=== PATIENT | male | born 1945 | race Caucasian/White ===

== ENCOUNTER 2016-05-15 18:17 | Emergency (ER) | payer MEDICARE, BC, OTHER ==
[2016-05-15] MEDS ORDERED: CARV6.25 PO (18:43)
[2016-05-15] MEDS ORDERED: TRAN2TAB4 (18:43)
[2016-05-15] MEDS ORDERED: ALPR0.25 (18:43)
[2016-05-15] MEDS ORDERED: TAMSULOSIN (18:43)
[2016-05-15] MEDS ORDERED: MULTIVITAMIN -ADULT INJECTION 10 ML, THIAMINE INJection 100 MG, FOLIC ACID 1 MG in NS 1... IV ONE (19:45)
[2016-05-15 19:49] LABS: BASO % 0.4 % (0.0-1.0); EOS # 0.1 K/mm3 (0.0-0.50); EOS % 2.2 % (0.0-3.0); LARGE UNSTAINED CELL # 0.1 K/mm3 (0.0-0.4); LARGE UNSTAINED CELL % 2.5 % (0.0-4.0); LYMPH # 1.8 K/mm3 (1.5-4.5); LYMPH % 36.1 % (24.0-44.0); MEAN CORPUSCULAR HEMOGLOBIN 30.5 pg (27.0-33.0); MEAN CORPUSCULAR HGB CONC 33.4 g/dl (32.0-36.5); MEAN CORPUSCULAR VOLUME 91.3 fl (80.0-96.0); MONO # 0.3 K/mm3 (0.0-0.8); MONO % 5.8 % (0.0-5.0); NEUTROPHILS # 2.5 K/mm3 (1.8-7.7); NEUTROPHILS % 53.1 % (36.0-66.0); PLATELET COUNT, AUTOMATED 197 k/mm3 (150-450); RED CELL DISTRIBUTION WIDTH 12.8 % (11.5-14.5); WHITE BLOOD COUNT 4.7 K/mm3 (4.0-10.0)
[2016-05-15 20:24] LABS: ALBUMIN 3.5 GM/DL (3.2-5.2); ALBUMIN/GLOBULIN RATIO 1.21 (1.00-1.93); ALKALINE PHOSPHATASE 42 U/L (45-117); ALT/SGPT 22 U/L (12-78); ANION GAP 10 MEQ/L (8-16); AST/SGOT 25 U/L (15-37); BILIRUBIN,DIRECT < 0.1 MG/DL (0.0-0.2); BILIRUBIN,TOTAL 0.3 MG/DL (0.2-1.0); BLOOD UREA NITROGEN 9 MG/DL (7-18); CALCIUM LEVEL 8.6 MG/DL (8.8-10.2); CARBON DIOXIDE LEVEL 26 MEQ/L (21-32); CHLORIDE LEVEL 108 MEQ/L (98-107); CREATININE FOR GFR 0.79 MG/DL (0.70-1.30); GLOMERULAR FILTRATION RATE > 60.0 (>42); GLUCOSE, FASTING 97 MG/DL (83-110); POTASSIUM SERUM 3.7 MEQ/L (3.5-5.1); SODIUM LEVEL 144 MEQ/L (136-145); TOTAL PROTEIN 6.4 GM/DL (6.4-8.2)
[2016-05-15 22:22] VITALS: BP 116/60
== END 2016-05-15 22:35 | disposition home or self-care (01) ==
LOC: EDBD 18:17 → M ED 18:45
DX: F10.129 Alcohol abuse with intoxication, unspecified (principal)
CPT/HCPCS: 80048; 80076; 82140; 85025; 99282; G0480; J3411

== ENCOUNTER 2016-06-18 14:00 | Outpatient (RCR) | payer MEDICARE, OTHER ==
[~2016-06-18 14:00] MED LIST: ALPR0.25; CARV6.25 PO; TAMSULOSIN; TRAN2TAB4
== END 2016-06-24 ==
LOC: M OUTALCOH 14:00
PROVIDERS: ATTEND Psychiatry & Neurology Psychiatry
DX: F10.20 Alcohol dependence, uncomplicated (principal)
CPT/HCPCS: 90791; H0050

== ENCOUNTER 2016-07-19 11:00 | Outpatient (RCR) | payer MEDICARE, OTHER | END 2016-07-25 | LOC: M OUTALCOH 11:00 | PROVIDERS: ATTEND Psychiatry & Neurology Psychiatry | DX: F10.20 Alcohol dependence, uncomplicated (principal) ==

== ENCOUNTER 2016-07-27 10:38 | Inpatient (IN) | payer MEDICARE, OTHER ==
[~2016-07-27] VITALS: Ht 180.3 cm; Wt 53.3 kg
[2016-07-27] MEDS ORDERED: SERT1TAB16 (10:58)
[2016-07-27] MEDS ORDERED: ARIC10TA (10:58)
[2016-07-27] MEDS ORDERED: VITA10002 (10:58)
[2016-07-27 11:54] LABS: BASO % 0.1 % (0.0-1.0); EOS # 0.1 K/mm3 (0.0-0.50); EOS % 1.2 % (0.0-3.0); LARGE UNSTAINED CELL # 0.1 K/mm3 (0.0-0.4); LARGE UNSTAINED CELL % 1.4 % (0.0-4.0); LYMPH # 0.9 K/mm3 (1.5-4.5); LYMPH % 9.7 % (24.0-44.0); MEAN CORPUSCULAR HEMOGLOBIN 31.3 pg (27.0-33.0); MEAN CORPUSCULAR HGB CONC 34.2 g/dl (32.0-36.5); MEAN CORPUSCULAR VOLUME 91.7 fl (80.0-96.0); MONO # 0.6 K/mm3 (0.0-0.8); MONO % 6.3 % (0.0-5.0); NEUTROPHILS # 7.7 K/mm3 (1.8-7.7); NEUTROPHILS % 81.4 % (36.0-66.0); PLATELET COUNT, AUTOMATED 161 k/mm3 (150-450); RED CELL DISTRIBUTION WIDTH 12.2 % (11.5-14.5); WHITE BLOOD COUNT 9.5 K/mm3 (4.0-10.0)
[2016-07-27 12:14] LABS: ALBUMIN 2.4 GM/DL (3.2-5.2); ALBUMIN/GLOBULIN RATIO 1.14 (1.00-1.93); ALKALINE PHOSPHATASE 33 U/L (45-117); ALT/SGPT 16 U/L (12-78); ANION GAP 6 MEQ/L (8-16); AST/SGOT 22 U/L (15-37); BILIRUBIN,DIRECT 0.1 MG/DL (0.0-0.2); BILIRUBIN,TOTAL 0.4 MG/DL (0.2-1.0); BLOOD UREA NITROGEN 10 MG/DL (7-18); CALCIUM LEVEL 6.6 MG/DL (8.8-10.2); CARBON DIOXIDE LEVEL 25 MEQ/L (21-32); CHLORIDE LEVEL 116 MEQ/L (98-107); CREATININE FOR GFR 0.53 MG/DL (0.70-1.30); GLOMERULAR FILTRATION RATE > 60.0 (>42); GLUCOSE, FASTING 84 MG/DL (83-110); POTASSIUM SERUM 3.3 MEQ/L (3.5-5.1); SODIUM LEVEL 147 MEQ/L (136-145); TOTAL PROTEIN 4.5 GM/DL (6.4-8.2)
--- NOTE | 2016-07-27 12:40 | REP ---
CT HEAD WITHOUT CONTRAST: HISTORY: Altered mental status. COMPARISON: 05/31/2016 Areas of decreased attenuation are present in the periventricular and subcortical white matter. This represents small vessel ischemic disease. There is no intraparenchymal hemorrhage or mass. A chronic subdural hematoma 2.3 cm in with with acute rebleeding is present over the left cerebral hemisphere. A subacute, subdural hematoma 1.5 cm in width is present over the right cerebral hemisphere. There is mass effect with effacement of the overlying cortical sulci and partial effacement of the bodies of the lateral and third ventricles with minimal midline shift to the right. There is no fracture. The visualized sinuses are clear. IMPRESSION: 1. Small vessel ischemic disease. 2. There is a 2.3 cm chronic subdural hematoma with acute rebleeding over the left cerebral hemisphere. There is minimal midline shift to the left. 3. There is a 1.5 cm subacute subdural hematoma over the right cerebral hemisphere. Results were discussed with Dr. Esposito at 12:04 PM this date. Signed by Jake Nunes MD 07/27/2016 12:47 P
--- NOTE | 2016-07-27 12:48 | REP ---
CHEST: AP supine film of the chest is performed and compared to a prior study of 12/11/2011. There is no acute infiltrate. There is poor ventilation. Cardiomediastinal silhouette appears magnified. IMPRESSION: No acute infiltrate. Signed by Bharathi Cage MD 07/27/2016 01:42 P
--- NOTE | 2016-07-27 12:55 | REP ---
CT SPINE WITHOUT CONTRAST: HISTORY: Altered mental status. There is no acute fracture or subluxation. Disc bulges are present at the C2-3 and C3-4 levels. Disc bugles with associated osteophyte formation are present at the C4-5 through C6-7 levels. There is minimal narrowing of the spinal canal. Uncinate process and/or facet hypertrophy are present at the C3-4 through C7-T1 levels. These findings produce minimal to moderate narrowing of the neural foramina. Anterior osteophytes are present at the C1-2 through C6-7 levels. 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 IMPRESSION: 1. There is no acute fracture or subluxation. 2. 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 Signed by Jake Nunes MD 07/27/2016 01:19 P
[2016-07-27 13:31] LABS: MAGNESIUM LEVEL 1.8 MG/DL (1.8-2.4)
[2016-07-27] MEDS ORDERED: CARV6.25 PO (13:37)
[2016-07-27] MEDS ORDERED: TRAN2TAB4 PO (13:37)
[2016-07-27] MEDS ORDERED: SERT1TAB16 PO (13:37)
[2016-07-27] MEDS ORDERED: FLOM5CAP PO (13:37)
[2016-07-27] MEDS ORDERED: VITA10002 PO (13:37)
[2016-07-27] MEDS ORDERED: ALPR0.25 PO (13:37)
[2016-07-27] MEDS ORDERED: DONETAB6 PO (13:37)
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
[2016-07-27] MEDS ORDERED: ALPRAZolam 0.25 MG TAB PO PRN (14:30)
[2016-07-27] MEDS ORDERED: POTASSIUM CHLORIDE 10 MEQ SR TABLET PO ONE (16:00)
--- NOTE | 2016-07-27 16:34 | REP ---
CT HEAD WITHOUT CONTRAST: HISTORY: Fall. COMPARISON: 11:48 a.m. 07/27/2016 Areas of decreased attenuation are present in the periventricular and subcortical white matter. This represents small vessel ischemic disease. There is no intraparenchymal hemorrhage or mass. A chronic subdural hematoma 2.3 mm in width with acute rebleeding is present over the left cerebral hemisphere. A subacute subdural hematoma 1.5 cm in width is present over the right cerebral hemisphere. There is mass effect with effacement of the overlying cortical sulci and partial effacement of the bodies of the lateral and third ventricles with minimal midline shift to the right. The left subdural hematoma is very slightly increased in size. There is no fracture. The visualized sinuses are clear. IMPRESSION: 1. Small vessel ischemic disease. 2. There is a 2.3 cm chronic subdural hematoma with acute rebleeding over the left cerebral hemisphere. This is slightly increased in size compared to the previous study. There is minimal midline shift to the left. 3. There is a 1.5 cm subacute subdural hematoma over the right cerebral hemisphere, unchanged compared to the previous study. Signed by Jake Nunes MD 07/27/2016 04:37 P
[2016-07-27] MEDS ORDERED: ACETAMINOPHEN 325 MG TAB PO PRN (17:30)
[2016-07-27 17:59] LABS: INR 0.96
[2016-07-27 20:00] VITALS: BP 143/69
[2016-07-27] MEDS: KCL 20MEQ in NS 1000ML 1,000 ML IV SCH (20:45)
[2016-07-27] MEDS ORDERED: CARVedilol 6.25 MG TAB PO SCH (21:00)
--- NOTE | 2016-07-27 23:59 | HPEPDOC ---
General Date of Admission 07/27/16 Attending Physician: MARY ELAM MD Chief Complaint The patient is a 71-year-old male admitted with a reason for visit of fall/head injury. History of Present Illness Mr Brooks is a 71 year old male nonsmoker who presents to the ED after a fall with head injury at home. He states he does not know why he is here. He does not remember how he got to the hospital. He states "the only problem is all of a sudden I don't know what to think." He denies any pain, headache, weakness, numbness/tingling, dizziness, seizures, bladder or bowel continence, difficulty walking, chest pain, shortness of breath, abdominal pain, or N/V. He states he is feeling fine and is ready to go home. He states he is independent at home and lives with his . He owns a vehicle and drives. Home Medications Scheduled (Sertraline HCl) 25 Mg Tab, 25 MG PO DAILY, (Reported) Carvedilol (Carvedilol) 6.25 Mg Tab, 6.25 MG PO BID, (Reported) Cyanocobalamin (Vitamin B-12) 1,000 Mcg Tab, 1,000 MCG PO DAILY, (Reported) Donepezil Hcl (Donepezil HCl) 10 Mg Tab, 10 MG PO DAILY, (Reported) Tamsulosin Hydrochloride (Flomax) 0.4 Mg Cap, 0.4 MG PO DAILY, (Reported) Trandolapril (Trandolapril) 2 Mg Tab, 2 MG PO DAILY, (Reported) Scheduled PRN Alprazolam (Alprazolam) 0.25 Mg Tab, 0.25 MG PO TID PRN for ANXIETY, (Reported) Allergies Coded Allergies: Codeine (Verified Adverse Reaction, Mild, HALLUCINATIONS, 07/27/16) Past Medical History Medical History HTN BPH Depression/anxiety Dementia Social History * Smoker: non-smoker Alcohol: other ("Some." Becomes irritated and tells me I am asking too personal of questions and refuses to answer. 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 SKIN: Skin tears over dorsal aspect of right hand covered in dried blood. No active bleeding. IV present in antecubital space of left arm. HEAD: NC, with signs of trauma mainly located posterior aspect. [place] are present over fresh laceration over midline inferior aspect parietal region. There is dried blood along the left side of face by his ear. No signs of ear trauma. EYES: PERRL. EOM are coarse. No discharge or tearing. No signs of trauma to the globe. NECK: supple with FROM flexion and extension, lateral bending, and rotation. Symmetrical. No lymphadenopathy. HEART: RRR, heart sounds are distant. No appreciated murmurs. LUNGS: clear to auscultation. No wheezes, rhonchi, or rales. ABD: active bowel sounds. No pain with palpation. NEURO: Rate & flow of speech is ordinary. No slurring of words. CN II-12: appear to be intact, with exception of coarse EOM. Balance not assessed. Motor/ muscle strength: 5/5 in upper and lower extremities and equal bilaterally. DTRs: slightly increased throughout, symmetric bilaterally. Sensation: intact to touch and vibration sensations in upper and lower extremities. Sharp sensation is intact in upper extremities, but decreased in lower extremities peripherally in stocking distribution. There is no ankle clonus bilaterally. Babinski is down going bilaterally. Robles's sign is negative. Hair/coordination: Appears to be impaired; he begins to perform the task but then refuses. PSYCH:mood is irritable. GAIT: not assessed. He is on bed rest. MENTAL STATUS: Alert, orientated to person, place, and year. Not orientated to day, date, or month. He has difficulty following commands. He is able to correctly tell me location of [place] [facility]. He tells me he has 2 children and is able to state their names ("Rajendra and Soraya", unsure if this is accurate.) Vital Signs Vital Signs Date Time Temp Pulse Resp B/P (MAP) Pulse Ox O2 Delivery O2 Flow Rate FiO2 07/27/16 16:38 73 98 07/27/16 16:35 142/69 (93) 07/27/16 10:48 98.1 16 Room Air Laboratory Data Labs 24H Laboratory Tests 2 07/27/16 11:36: White Blood Count 9.5, Red Blood Count 4.39, Hemoglobin 13.8L, Hematocrit 40.2L , Mean Corpuscular Volume 91.7, Mean Corpuscular Hemoglobin 31.3, Mean Corpuscular Hemoglobin Concent 34.2, Red Cell Distribution Width 12.2, Platelet Count 161, Neutrophils (%) (Auto) 81.4H, Lymphocytes (%) (Auto) 9.7L, Monocytes (%) (Auto) 6.3H, Eosinophils (%) (Auto) 1.2, Basophils (%) (Auto) 0.1, Neutrophils # (Auto) 7.7, Lymphocytes # (Auto) 0.9L, Monocytes # (Auto) 0.6, Eosinophils # (Auto) 0.1, Basophils # (Auto) 0.0, Large Unclassified Cells % 1.4 , Large Unclassified Cells # 0.1, Anion Gap 6L, Glomerular Filtration Rate > 60.0, Lactic Acid Level 0.9, Calcium Level 6.6L, Magnesium Level 1.8, Aspartate Amino Transf (AST/SGOT) 22, Alanine Aminotransferase (ALT/SGPT) 16, Alkaline Phosphatase 33L, Total Bilirubin 0.4, Direct Bilirubin 0.1, Ammonia 20, Total Protein 4.5L, Albumin 2.4L, Albumin/Globulin Ratio 1.14, Thyroid Stimulating Hormone (TSH) 0.874, Ethyl Alcohol Level < 0.003 07/27/16 12:00: Bedside Glucose (Misc Panel) 116H 07/27/16 13:22: Urine Appearance CLEAR, Urine Color YELLOW, Urine pH 7.0, Urine Specific [place] 1.005, Urine Protein NEGATIVE, Urine Glucose (UA) NEGATIVE, Urine Ketones TRACEH, Urine Urobilinogen 0.2, Urine Bilirubin NEGATIVE, Urine Leukocyte Esterase 3+H, Urine Blood NEGATIVE, Urine Nitrite NEGATIVE, Urine WBC (Auto) 17H, Urine RBC (Auto) 4H, Urine Hyaline Casts (Auto) 0, Urine Bacteria ( Auto) 1+H, Urine Squamous Epithelial Cells 0, Urine Sperm (Auto) , Osmolality 295 CBC/BMP Laboratory Tests 07/27/16 11:36 Red Blood Count 4.39, Mean Corpuscular Volume 91.7, Mean Corpuscular Hemoglobin 31.3, Mean Corpuscular Hemoglobin Concent 34.2, Red Cell Distribution Width 12.2 , Neutrophils (%) (Auto) 81.4 H, Lymphocytes (%) (Auto) 9.7 L, Monocytes (%) ( Auto) 6.3 H, Eosinophils (%) (Auto) 1.2, Basophils (%) (Auto) 0.1, Neutrophils # (Auto) 7.7, Lymphocytes # (Auto) 0.9 L, Monocytes # (Auto) 0.6, Eosinophils # (Auto) 0.1, Basophils # (Auto) 0.0 Problems (1) Subdural hematoma Status: Acute Plan / VTE VTE Prophylaxis Ordered?: Yes (TEDS/SCD) VTE Exclusion Pharmacological: Active Bleeding Plan Plan Admit to PCU. Recommend surgical intervention for subdural hematoma. Additional plans per Dr Elam. Diet: Make NPO Activity: YEIMY Garcia PA-C Jul 27, 2016 17:18 MARY ELAM MD Jul 28, 2016 09:12
[2016-07-28] VITALS (13 sets, daily range): BP systolic 128–153; BP diastolic 60–83
[2016-07-28 04:19] LABS: MEAN CORPUSCULAR HEMOGLOBIN 31.8 pg (27.0-33.0); MEAN CORPUSCULAR HGB CONC 34.5 g/dl (32.0-36.5); RED CELL DISTRIBUTION WIDTH 12.1 % (11.5-14.5); WHITE BLOOD COUNT 6.7 K/mm3 (4.0-10.0)
[2016-07-28 04:35] LABS: ALBUMIN 2.9 GM/DL (3.2-5.2); ALBUMIN/GLOBULIN RATIO 0.94 (1.00-1.93); ALKALINE PHOSPHATASE 43 U/L (45-117); ALT/SGPT 20 U/L (12-78); ANION GAP 7 MEQ/L (8-16); AST/SGOT 29 U/L (15-37); BLOOD UREA NITROGEN 8 MG/DL (7-18); CALCIUM LEVEL 7.8 MG/DL (8.8-10.2); CARBON DIOXIDE LEVEL 24 MEQ/L (21-32); CHLORIDE LEVEL 111 MEQ/L (98-107); CREATININE FOR GFR 0.57 MG/DL (0.70-1.30); GLOMERULAR FILTRATION RATE > 60.0 (>42); GLUCOSE, FASTING 86 MG/DL (83-110); SODIUM LEVEL 142 MEQ/L (136-145)
[2016-07-28] MEDS: KCL 20MEQ in NS 1000ML 1,000 ML IV SCH (05:53)
--- NOTE | 2016-07-28 07:25 | ECGEPIP ---
Stationary ECG Study [facility] - ED Test Date: 2016-07-27 Pat Name: JIGNA KIRKLAND Department: Room: - Gender: M De Alcholizer: jenny : 1945 Requested By: LEANA Martínez Order Number: [id number] Reading MD: Cheryl Varner Measurements Intervals [place] Rate: 57 P: 22 PA: 171 QRS: 41 QRSD: 97 T: 40 QT: 441 QTc: 431 Interpretive Statements SINUS BRADYCARDIA PROBABLE INFERIOR MYOCARDIAL INFARCTION, PROBABLY OLD NO PRIOR FOR COMPARISON Electronically Signed On 07-28-2016 7:25:43 EDT by Cheryl Varner
[2016-07-28] MEDS: TAMSULOSIN 0.4 MG CAP PO SCH (08:04)
[2016-07-28] MEDS: SERTRALINE HCL 25 MG TABLET PO SCH (08:04)
[2016-07-28] MEDS: CYANOCOBALAMIN 500 MCG TAB PO SCH (08:04)
[2016-07-28] MEDS ORDERED: BACITRACIN OINT 30GM As Ordered ONE (08:33)
[2016-07-28] MEDS ORDERED: LIDOCAINE 1% SDV INJ 30 ML VIAL As Ordered ONE (08:33)
[2016-07-28] MEDS ORDERED: TRANDOLAPRIL 1 MG TAB PO SCH (09:00)
[2016-07-28] MEDS ORDERED: ceFAZolin 1GM INJ (J0690) As Ordered ONE (09:46)
[2016-07-28] MEDS ORDERED: fentaNYL 250 MCG/5 ML INJECTION (J3010) As Ordered ONE (11:12)
[2016-07-28] MEDS ORDERED: dexameTHASONE 4 MG/ML 1ML VIAL (J1100) As Ordered ONE (11:12)
[2016-07-28] MEDS ORDERED: PROPOFOL 200 MG/20 ML VIAL As Ordered ONE ×2 (11:12→11:26)
[2016-07-28] MEDS ORDERED: MIDAZOLAM INJ 2 MG/2 ML VIAL (J2250) As Ordered ONE (11:12)
[2016-07-28] MEDS ORDERED: NEOSTIGMINE 1MG/ML 5 ML SYRINGE (J2710) As Ordered ONE (11:12)
[2016-07-28] MEDS ORDERED: ROCURONIUM BROMIDE 50 MG/5 ML VIAL As Ordered ONE (11:12)
[2016-07-28] MEDS ORDERED: LIDOCAINE 2% INJ 100 MG/5 ML SDV (FOR ANES.) As Ordered ONE (11:12)
[2016-07-28] MEDS ORDERED: GLYCOPYRROLATE INJ 0.2 MG/ML 2 ML VIAL As Ordered ONE (11:13)
[2016-07-28] MEDS ORDERED: METOCLOPRAMIDE INJ 10MG/2ML VIAL (J2765) IV PRN (12:15)
[2016-07-28] MEDS: KCL 20MEQ IN D5/0.45NS 1000ML 1,000 ML IV SCH ×2 (12:15→13:10)
[2016-07-28] MEDS ORDERED: PERCOCET 5MG/325MG TAB PO PRN (12:15)
[2016-07-28] MEDS ORDERED: ONDANSETRON 4MG/2ML VIAL (J2405) IV PRN (12:15)
[2016-07-28] MEDS ORDERED: LR 1,000 ML IV SCH (12:15)
[2016-07-28] MEDS ORDERED: MEPERIDINE INJ 25 MG/ML VIAL (J2175) IV PRN (12:15)
[2016-07-28] MEDS ORDERED: fentaNYL 100 MCG/2 ML INJECTION (J3010) IV PRN (12:15)
[2016-07-28] MEDS: KCL 20MEQ IN D5/NS 1000ML 1,000 ML IV SCH ×2 (13:30→22:15)
[2016-07-28] MEDS ORDERED: MORPHINE 2 MG/ML 1ML SYRINGE IV PRN (15:45)
--- NOTE | 2016-07-28 16:54 | ROOPDOC ---
[facility] Report Of Operation Report of Operation DATE OF SURGERY: 07/28/2016 SURGEON: Dr. Mary Elam STUDENT FINANCE ADVISOR: None PREOPERATIVE DIAGNOSIS: Bilateral chronic subdural hematomas (cSDH) POSTOPERATIVE DIAGNOSIS: Same PROCEDURE PERFORMED: 1. Margareth holes placement 2. Insertion of port for drainage of bilateral chronic SDH. ANESTHESIA: GETA. ESTIMATED BLOOD LOSS: Minimal. FINDINGS : Bilateral chronic subdural hematomas. DRAINS: GP drains x 2 COMPLICATIONS: None. DISPOSITION: Stable to the PACU. INDICATIONS FOR THE PROCEDURE HISTORY: Mr. Brooks is a 71 y/o M who presents to the hospital after fall and scalp laceration on the back of the head. Examination reveal s the signs, symptoms and radiographic evidence of chronic subdural hematoma decreasing mental status, weakness, tendency to fall). DIAGNOSTIC STUDY: Head CT scan showed bilateral fronto-parietal chronic subdural hematomas of different age and new small bleeds. SURGICAL RISKS: The patient most likely has underlying dementia and disoriented, unable to provide consent. His daughter was well apprised of all objectives, benefits, risks and potential complications of the procedure, including but not limited to : worsening of current status, the possible need for further procedures, the risk of infection, headaches, CSF leak, possible spinal nerve injury resulting in paralysis, infection, injury to major vessels causing hemorrhage, stroke, loss of language function, coma and even . No assurance was given whether symptoms would improve following the procedure. The surgery is technically difficult procedure and despite the significant discomfort for the patient and the best effort of the physician, the surgery may be unsuccessful or may need to be aborted. Informed consent was obtained and secured in the chart after the patient and family voiced understanding of these risks and decided to proceed with the operation. DESCRIPTION OF THE PROCEDURE The patient was transferred to the operating room. He was given preoperative prophylactic IV antibiotics. ANESTHESIA: The patient was sedated and intubated without difficulty by the anesthesia service. Eyes were taped shut after ointment was applied to prevent corneal abrasion. A Brina Hugger was placed over the upper body to maintain control of core body temperature. POSITIONING: The patient was supine on OR table with his head on horse shoe head esthetician. All pressure points were carefully padded. OPERATIVE TECHNIQUE: The patient was prepped and draped in the standard sterile fashion. Local anesthesic was infiltrated along the line of the planned skin incisions on both sides of head, which was opened sharply with a # 10 scalpel blade. Hemostasis was achieved utilizing monopolar and bipolar electrocautery. The scalp was reflected and held in place with self-retaining retractors. Utilizing the hand-held auto suspension and steering mechanic drill and a 5 mm twist drill, a small hole craniotomy was performed and dura matter has been open. Old blood came out under high pressure. [employer] subdural drainage port has been screwed into the twist hole. The drain has been attached to the port and secured with silk sutures. Scalp has been closed by metal sara. Bacitracin ointment has been applied to the wound and sterile dressing has been placed over closed wound. Above procedure has been repeated on opposite side of the head. All sponge counts, needle counts and instrument counts were correct at the end of the case times two. The patient tolerated the procedure well, without any complications and was transferred in stable condition to the recovery room. MARY ELAM MD Jul 28, 2016 16:54
[2016-07-28] MEDS: ceFAZolin SOD 1 GM in D5W MINI-BAG PLUS 50 ML IV SCH (17:01)
[2016-07-28] MEDS ORDERED: POLYVINYL ALCOHOL OPHTH SOLN 15 ML(LIQUITEARS) OU PRN (17:15)
[2016-07-28] MEDS: PROMETHAZINE INJ 25 MG/ML VIAL (J2550) IV PRN (17:37)
[2016-07-28] MEDS ORDERED: HALOPERIDOL 5 MG/ML VIAL (J1630) IV STA ×2 (18:36→22:39)
[2016-07-28] MEDS: POLYVINYL ALCOHOL OPHTH SOLN 15 ML(LIQUITEARS) OU SCH (19:51)
[2016-07-28] MEDS: MORPHINE 2 MG/ML 1ML SYRINGE IV PRN (19:52)
--- NOTE | 2016-07-28 21:17 | IPNPDOC ---
Text Note Date of Service The patient was seen on 07/28/16. NOTE Subjective: Patient seen and examined at bedside status-post neurosurgery postoperative day #0. Procedure he had was [place] Holes placement and insertion of port for drainage of bilateral chronic SDH. Patient was resting comfortably and sleeping in bed prior to interview. Denies fevers, chills, chest pain, SOB, diarrhea, constipation, dysuria, blurred vision, denies weakness, runny nose, sore throat, cough. Admits to headache in entire head, itchy eyes, mid-abdominal pain, numbness of his L hand 5th digit, and partial numbness of his 3rd and 4th digits proximally. Admits to some numbness in his feet. ADmits to feeling sick to stomach and nausea. Objective: Vitals Signs Postoperatively in ICU/[facility]andelier [facility] and via Nurse: T:97.8 BP: 132/80 RR:14 P:47, 48, 49 O2 Saturation: Satting in 90s % on room air General: Pleasant elderly male with tube placed in Posterior Scalp. NAD. Calm and cooperative. Awake, alert, and oriented to person, place, and time. Only did not recall the exact date/day of the week. Knew year, month, town, hospital. Normal mentation. HEENT: Head: normocephalic, atraumatic. Eyes: PERRL, sclera are nonicteric. Nose: No external lesions, Throat: no pharyngeal erythema or exudates, moist buccal mucosa. Psychiatric: When asked to smile, he does not. States it is due to depression. Respiratory: clear to auscultation bilaterally with no wheezes, rales, or rhonchi. Neck: Supple Cardiovascular: bradycardic rate, regular rhythm, with no murmurs, rubs or gallops. Abdomen: soft, nondistended, no hepatosplenomegaly appreciated. Bowel sounds present but hypoactive. +tenderness to palpation of mid-abdomen without rebound or guarding. Genitourinary: has jeffers in place. Extremities: No swelling in either lower extremity bilaterally. Musculoskeletal: 4-5/5 strength in upper and lower extremities bilaterally. Neurological: sensation not intact in L hand 5th digit and partial numbness of L hand 3rd and 4th digits proximally. CN 2-12 intact bilaterally. Integumentary: Some bruising and abrasions noticeable in LUE. Postsurgialcal site clean/dry/intact without drainage or erythema. Vascular: +2 dorsalis pedis and radial pulses bilaterally. Laboratory data: Please see below. CBC WNL. PT/INR: 12.9/0.96. Chemistry is remarkable for total CK of 646, cA 7.8, CK-MB 4, albumin 2.90, Microbiology: Urine cx pending. Imaging: No new imaging. EKG: Sinus bradycardia. Probable inferior KS, probably old. No prior. Rate: 57. Assessment/Plan: This is a 71 yo M presenting status-post fall with head trauma. Had CT scan of the head findings consistent with R hemisphere subacute subdural hematoma with acute rebleeding of the L hemisphere and midline shift to the L, as well as CT findings of chronic L hemispheric subdural hematoma. Is now status -post Tracy holes placement and insertion of port for drainage of bilateral chronic subdural hematomas post-operative day #0. -Acute on chronic SDH status-post surgery as noted above: Mental status has improved and patient is AAO X 3 when interviewed. Management per neurosurgery primary team. *Last evening: it was reported to me that patient did have an episode of agitation, began cursing at the nurse, and one dose of 5 mg haldol IV was given by nurse. Patient then became calm and episode resolved. -Numbness in L hand 3rd, 4th, and 5th digits: Continue to monitor for improvement. -Scalp laceration: status-post surgery with cinthia holes placement and drainage port insertion at area of scalp laceration/trauma. Management as per Neurosurgery. Will monitor clinically for signs of infection, erythema, drainage , bleeding. -HTN: Currently bradycardic and HR on monitor was 40s when interviewed. Will hold BP medications for now and restart BP medications when patient stable. Have placed nursing order to call us when BP is >150. Once resumed, will continue patient's carvedilol and trandolapril. -Hypernatremia: Na 142 and WNL today. Serum Osmolality 293 and WNL. Continue monitoring daily BMPs. -Hypokalemia: K is 4 and WNL. Supplementation as necessary. -BPH LUTS. Will follow up bladder scan results. Flomax continued by neurosurgery. Urine cx pending. UA unremarkable. Patient has jeffers catheter in place and is voiding. -Dementia: continue aricept. -Anxiety: continue Xanax TID PRN. -Depression: continue sertraline. -Hx of EtOH Use: Follow up vitamin B12 level. Monitor for withdrawal symptoms. Xanax TID as needed for withdrawal symptoms. Consider PT/OT evaluation as necessary. DVT prophylaxis: TEDs and SCDs. As per neurosurgery recommendations. No pharmacologic prophylaxis due to bleeding risk, status-post surgery for subdural hematomas. Immunizations as per protocol. My preceptor for this patient encounter was Dr. Tabitha Morel, and was physically present in the building during the encounter and was fully available. As needed, all aspects of the patient interview, examination, medical decision making process, and medical care plan development were reviewed and approved by the preceptor. Preceptor is aware and concurs with the plan as stated in the body of this note and will attest to such by his/her cosignature Attending Note I, Dr. Morel, Hospitalist Attending Physician, have independently seen and examined this patient at the bedside, and agree with the assessment, and plan as written by my resident physician, Dr Viera. VS,Sandrine, I+O VSSandrine, I+O Laboratory Tests 07/28/16 03:56 Red Blood Count 4.55, Mean Corpuscular Volume 92.0, Mean Corpuscular Hemoglobin 31.8, Mean Corpuscular Hemoglobin Concent 34.5, Red Cell Distribution Width 12.1 , Calcium Level 7.8 #L, Aspartate Amino Transf (AST/SGOT) 29, Alanine Aminotransferase (ALT/SGPT) 20, Total Creatine Kinase 646 H, Alkaline Phosphatase 43 L, Total Bilirubin 1.0 #, Total Protein 6.0 #L, Albumin 2.9 #L Vital Signs Date Time Temp Pulse Resp B/P (MAP) Pulse Ox O2 Delivery O2 Flow Rate FiO2 07/28/16 20:00 97.9 55 18 135/60 (85) 97 Room Air 07/28/16 12:25 3 I&O- Last 24 Hours up to 6 AM 07/28/16 05:59 Intake Total 407 ml Balance 407 ml JOSE VIERA OGME-1 Jul 28, 2016 21:17 TABITHA MOREL MD Jul 29, 2016 08:36
[2016-07-28 21:52] LABS: OSMOLALITY SERUM 293 MOSM/KG (280-301)
[2016-07-28 22:02] LABS: ANION GAP 7 MEQ/L (8-16); BLOOD UREA NITROGEN 7 MG/DL (7-18); CARBON DIOXIDE LEVEL 27 MEQ/L (21-32); CHLORIDE LEVEL 109 MEQ/L (98-107); CREATININE FOR GFR 0.76 MG/DL (0.70-1.30); GLOMERULAR FILTRATION RATE > 60.0 (>42); GLUCOSE, FASTING 151 MG/DL (83-110); POTASSIUM SERUM 4.1 MEQ/L (3.5-5.1); SODIUM LEVEL 143 MEQ/L (136-145)
[2016-07-29] VITALS (21 sets, daily range): BP systolic 112–167; BP diastolic 56–83
[2016-07-29] MEDS: MORPHINE 2 MG/ML 1ML SYRINGE IV PRN (01:27)
[2016-07-29] MEDS: ceFAZolin SOD 1 GM in D5W MINI-BAG PLUS 50 ML IV SCH ×2 (01:27→10:24)
[2016-07-29 04:38] LABS: MEAN CORPUSCULAR HEMOGLOBIN 31.8 pg (27.0-33.0); MEAN CORPUSCULAR HGB CONC 34.6 g/dl (32.0-36.5); MEAN CORPUSCULAR VOLUME 91.9 fl (80.0-96.0); RED CELL DISTRIBUTION WIDTH 12.1 % (11.5-14.5); WHITE BLOOD COUNT 8.2 K/mm3 (4.0-10.0)
[2016-07-29] MEDS: PROMETHAZINE INJ 25 MG/ML VIAL (J2550) IV PRN (04:50)
[2016-07-29 04:52] LABS: ALBUMIN 2.7 GM/DL (3.2-5.2); ALBUMIN/GLOBULIN RATIO 0.87 (1.00-1.93); ALKALINE PHOSPHATASE 42 U/L (45-117); ALT/SGPT 17 U/L (12-78); ANION GAP 4 MEQ/L (8-16); AST/SGOT 25 U/L (15-37); BILIRUBIN,TOTAL 0.5 MG/DL (0.2-1.0); BLOOD UREA NITROGEN 6 MG/DL (7-18); CALCIUM LEVEL 8.1 MG/DL (8.8-10.2); CARBON DIOXIDE LEVEL 29 MEQ/L (21-32); CHLORIDE LEVEL 109 MEQ/L (98-107); GLOMERULAR FILTRATION RATE > 60.0 (>42); GLUCOSE, FASTING 139 MG/DL (83-110); POTASSIUM SERUM 3.8 MEQ/L (3.5-5.1); SODIUM LEVEL 142 MEQ/L (136-145); TOTAL PROTEIN 5.8 GM/DL (6.4-8.2)
[2016-07-29] MEDS: KCL 20MEQ IN D5/NS 1000ML 1,000 ML IV SCH (06:18)
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
[2016-07-29] MEDS: CYANOCOBALAMIN 500 MCG TAB PO SCH (09:00)
[2016-07-29] MEDS: SERTRALINE HCL 25 MG TABLET PO SCH (09:00)
[2016-07-29] MEDS: POLYVINYL ALCOHOL OPHTH SOLN 15 ML(LIQUITEARS) OU SCH ×3 (09:00→20:57)
[2016-07-29] MEDS: TAMSULOSIN 0.4 MG CAP PO SCH (09:00)
--- NOTE | 2016-07-29 10:05 | REP ---
CT HEAD WITHOUT CONTRAST: HISTORY: Postop subdural drain. COMPARISON: 07/27/2016 The patient is status post bilateral subdural drain placement. A chronic subdural hematoma 2 cm in width with acute rebleeding is present over the left cerebral hemisphere. The subdural hematoma is decreased in size . A subacute subdural hematoma 9 mm in width is present over the right cerebral hemisphere. The subdural hematoma is decreased in size. There is mass effect with effacement of the overlying cortical sulci and partial effacement of the bodies of the lateral and third ventricles with minimal midline shift to the right. The midline shift is decreased compared to the previous study. The visualized sinuses are clear. IMPRESSION: 1. 2 cm chronic subdural hematoma with rebleeding over the left cerebral hemisphere decreased in size compared to the previous study. 2. 9 mm subacute subdural hematoma over the right cerebral hemisphere decreased in size compared to the previous study. There is minimal midline shift to the left that is decreased compared to the previous study. Signed by Jake Nunes MD 07/29/2016 10:10 A
[2016-07-29] MEDS ORDERED: KCL 20MEQ in NS 1000ML 1,000 ML IV SCH (11:00)
[2016-07-29] MEDS ORDERED: NS 1,000 ML IV SCH (12:30)
[2016-07-29] MEDS ORDERED: HALOPERIDOL 5 MG/ML VIAL (J1630) IV ONE ×2 (15:30→18:00)
[2016-07-29] MEDS: THIAMINE HCL 200 MG/2 ML VIAL (J3411) IV SCH ×2 (16:00→20:57)
[2016-07-29] MEDS ORDERED: LORazepam 2 MG/ML VIAL (J2060) As Ordered ONE (16:33)
[2016-07-29] MEDS: LORazepam 2 MG/ML VIAL (J2060) IV PRN (16:37)
--- NOTE | 2016-07-29 16:40 | ECGEPIP ---
Stationary ECG Study [facility] Test Date: 2016-07-29 Pat Name: JIGNA KIRKLAND Department: Room: [place] [address] Gender: M Mine Manager: : 1945 Requested By: TABITHA Whipple Order Number: [id number] Reading MD: Roque Moreno Measurements Intervals [place] Rate: 47 P: 31 NC: 164 QRS: 38 QRSD: 110 T: 22 QT: 466 QTc: 416 Interpretive Statements SINUS BRADYCARDIA INFERIOR MYOCARDIAL INFARCTION, CANNOT R/O SIMILAR 07/27/16 Electronically Signed On 07-29-2016 16:40:50 EDT by Roque Moreno
[2016-07-29] MEDS ORDERED: OXAZEPAM 10 MG CAP PO PRN (17:00)
[2016-07-29] MEDS: hydrALAZINE INJ 20 MG/ML VIAL IV SCH (18:00)
[2016-07-29] MEDS ORDERED: LORazepam 2 MG TAB PO PRN (18:15)
[2016-07-30] VITALS (13 sets, daily range): BP systolic 120–150; BP diastolic 60–92
[2016-07-30] MEDS: KCL 20MEQ in NS 1000ML 1,000 ML IV SCH ×2 (00:11→08:34)
[2016-07-30 04:04] LABS: MEAN CORPUSCULAR HGB CONC 33.7 g/dl (32.0-36.5); MEAN CORPUSCULAR VOLUME 92.1 fl (80.0-96.0); RED CELL DISTRIBUTION WIDTH 12.4 % (11.5-14.5); WHITE BLOOD COUNT 6.1 K/mm3 (4.0-10.0)
[2016-07-30 04:27] LABS: ALBUMIN 2.7 GM/DL (3.2-5.2); ALBUMIN/GLOBULIN RATIO 0.84 (1.00-1.93); ALKALINE PHOSPHATASE 42 U/L (45-117); ALT/SGPT 16 U/L (12-78); ANION GAP 6 MEQ/L (8-16); AST/SGOT 19 U/L (15-37); BILIRUBIN,TOTAL 0.6 MG/DL (0.2-1.0); BLOOD UREA NITROGEN 7 MG/DL (7-18); CALCIUM LEVEL 8.1 MG/DL (8.8-10.2); CARBON DIOXIDE LEVEL 29 MEQ/L (21-32); CHLORIDE LEVEL 110 MEQ/L (98-107); CREATININE FOR GFR 0.74 MG/DL (0.70-1.30); GLOMERULAR FILTRATION RATE > 60.0 (>42); GLUCOSE, FASTING 81 MG/DL (83-110); POTASSIUM SERUM 3.9 MEQ/L (3.5-5.1); SODIUM LEVEL 145 MEQ/L (136-145); TOTAL PROTEIN 5.9 GM/DL (6.4-8.2)
[2016-07-30] MEDS: LORazepam 2 MG/ML VIAL (J2060) IV PRN ×3 (04:38→18:07)
[2016-07-30] MEDS: hydrALAZINE INJ 20 MG/ML VIAL IV SCH ×5 (05:12→18:00)
[2016-07-30] MEDS: SERTRALINE HCL 25 MG TABLET PO SCH (08:33)
[2016-07-30] MEDS: POLYVINYL ALCOHOL OPHTH SOLN 15 ML(LIQUITEARS) OU SCH ×2 (08:33→16:23)
[2016-07-30] MEDS: THIAMINE HCL 200 MG/2 ML VIAL (J3411) IV SCH ×2 (08:33→16:14)
[2016-07-30] MEDS: TAMSULOSIN 0.4 MG CAP PO SCH (08:34)
[2016-07-30] MEDS: CYANOCOBALAMIN 500 MCG TAB PO SCH (08:34)
[2016-07-30] MEDS ORDERED: FOLIC ACID 1 MG TAB PO SCH (09:00)
[2016-07-30] MEDS ORDERED: MULTIVITAMINS/MINERALS THERAP 1 TAB PO SCH (09:00)
[2016-07-30] MEDS: KCL 20MEQ IN D5W 1000ML 1,000 ML IV SCH ×2 (11:43→18:07)
[2016-07-30] MEDS: MORPHINE 2 MG/ML 1ML SYRINGE IV PRN (17:00)
--- NOTE | 2016-07-30 18:51 | IPN ---
DATE: 07/30/2016 NEUROSURGERY ADMISSION DAY #4. POSTOPERATIVE DAY #3. PAIN CONTROL: Satisfactory. SURGICAL PROCEDURE: Margareth hole placement with insertion of port for drainage of bilateral chronic subdural hematoma (SDH). Over 24 hour period: He has remained agitated. He continues to say that he does not know why he is here and confused. No significant changes within the past 24 hours. SUBJECTIVE: Mr. Brooks is a 71-year-old male who was admitted for an acute on chronic SDH. He currently states that he is doing "so-so". He denies any pain. He states that his biggest complaint is that he has not eaten and the bed is very uncomfortable. He states that he does not know why he is here and that he would like to go home. He denies any new symptoms today. He denies chills, night sweats, headache, weakness, paresthesias, fatigue, dizziness, bladder or bowel incontinence, any leg pain or swelling, any nausea or vomiting. OBJECTIVE: CLINICAL STATUS: AVSS. NEUROLOGICAL STATUS: He is alert and oriented to person, place, and year. He still remains confused with short term memory. GCS = [id number] = 15 His speech is fluent. WOUND/INCISION: There are two drains placed in the superolateral aspect of the right and left side of the skull. They are wrapped with dressings at the incision site. There does not appear to be any increased drainage, any surrounding erythema, or increased pain at the site. CRANIAL NERVES: II through XII are intact. MOTOR: Strength is 5/5 bilaterally throughout. SENSORY: Intact to light touch in all 4 extremities. GAIT: Not assessed. Patient is on bed rest. MEDICATION CHANGES OVER 24 HOURS: The following meds have been added or given: - thiamine injection 500 mg intravenous (IV) twice a day - Serax 10 mg by mouth every 8 hours as needed for agitation - multivitamin tab - haloperidol 5 mg IV times 1 given - Ativan 1 mg IV every 2 hours or Ativan 2 mg by mouth as directed - Apresoline 5 mg IV every 6 hours LABORATORY DATA: His white blood cell is within normal range and has been since admission on 07/27. Sodium and potassium are within normal limits, hemoglobin is stable. ASSESSMENT: Acute on chronic bilateral chronic subdural hematomas. PAIN CONTROL: Satisfactory with morphine, 1 mg IV every 2 hours as needed for pain or 1 mg IV every 4 hours as needed for moderate pain. Deep venous thrombosis (DVT) prophylaxis, TEDs and sequential compression devices. Seizure precautions. Per Dr. Elam-Patient will be headed back to the operating room (OR) today for removal of drains on the right and left side and placement of new drain. Additional plans per Dr. Elam. [facility]
--- NOTE | 2016-07-30 19:45 | IPNPDOC ---
Text Note Date of Service The patient was seen on 07/30/16. NOTE Subjective: Patient seen and examined at bedside status-post neurosurgery postoperative day #2. Procedure he had was [place] Holes placement and insertion of port for drainage of bilateral chronic SDH. Patient was resting comfortably in bed and difficult to arouse. It was reported by nursing that patient was increasingly belligerent at bedside yesterday and they wer concerned he would pull out his drain. It was reported that his recent memory was horrible and possibly could be due to Wernicke's Encephalopathy as patient was drinking heavily prior to hospitalization. Was therefore placed on thiamine. Was given haldol, but this did not help. so he was given ativan. Placed on PRN serax. Denies fevers, chills, chest pain, SOB, nausea, vomiting, diarrhea, constipation , dysuria, blurred vision, denies weakness, runny nose, sore throat, cough. Admits to some pressure in the head and a headache. Denies abdominal pain, numbness or tingling anywhere. Objective: VS: Please see below. General: Pleasant elderly male with tubes placed in Posterior Scalp. NAD. Calm and cooperative. Awake, alert, and oriented to person, place, and time: the day. Only did not recall the exact date. Knew year, month, day of the week, town , hospital. Normal mentation. HEENT: Head: normocephalic with tubes in posterior scalp in place. Eyes: PERRL, sclera are nonicteric. Nose: No external lesions, Throat: no pharyngeal erythema or exudates, moist buccal mucosa. Did not test extraocular muscles since patient was in and out of sleep when interviewing and examining. Psychiatric: Not able to assess as patient keeps falling asleep. Respiratory: clear to auscultation bilaterally with no wheezes, rales, or rhonchi. Neck: Supple Cardiovascular: regular rate, regular rhythm, with no murmurs, rubs or gallops. Abdomen: soft, nondistended, no hepatosplenomegaly appreciated. Bowel sounds present but hypoactive. No tenderness to palpation of abdomen. Genitourinary: has jeffers in place. Extremities: No swelling in either lower extremity bilaterally. Musculoskeletal: Not tested due to patient constantly falling asleep. Neurological: Not tested as above. Integumentary: Some bruising and abrasions noticeable in bilateral upper extremities. Postsurgical sites clean/dry/intact without erythema or abnormal drainage. Vascular: +2 dorsalis pedis and radial pulses bilaterally. Laboratory data: Please see below. CBC and CMP unremarkable. Microbiology: Urine cx 07/29: showed no growth. Imaging: No new imaging. Assessment/Plan: This is a 71 yo M presenting status-post fall with head trauma. Had CT scan of the head findings consistent with R hemisphere subacute subdural hematoma with acute rebleeding of the L hemisphere and midline shift to the L, as well as CT findings of chronic L hemispheric subdural hematoma. Is now status -post [place] holes placement and insertion of port for drainage of bilateral chronic subdural hematomas post-operative day #2. -Acute on chronic SDH status-post surgery as noted above: Oriented to person, place, but not fully to time. Patient was difficult to arouse this AM. Therefore , difficult to assess mental and neurological status fully. No obvious observed deficits. Did answer questions for me in between falling asleep. Management per neurosurgery primary team. -Numbness in L hand 3rd, 4th, and 5th digits: Continue to monitor for improvement. -Scalp laceration: status-post surgery with cinthia holes placement and drainage port insertion at area of scalp laceration/trauma. Management as per Neurosurgery. Will monitor clinically for signs of infection, erythema, drainage , bleeding. -HTN: Currently has normal HR. No longer bradycardic. Will still hold BP medications for now and restart BP medications when patient stable. Have placed nursing order to call us when BP is >150. Once resumed, will continue patient's carvedilol and trandolapril. -Hypernatremia: WNL today. Serum Osmolality 293 and WNL. Continue monitoring daily BMPs. -Hypokalemia: K WNL. Supplementation as necessary. -BPH LUTS. Will follow up bladder scan results. Flomax continued by neurosurgery. Urine cx showed no growth. UA unremarkable. Patient has jeffers catheter in place and is voiding. -Dementia: continue aricept. -Anxiety: continue Xanax TID PRN. Has PRN serax for agitation. Is status-post haldol and ativan last evening. -Depression: continue sertraline. -Hx of EtOH Use: Placed on thiamine, folic acid. Monitor for withdrawal symptoms. Xanax TID as needed for withdrawal symptoms. -Per Dr. Mendez's communication with Dr. Blackwood previously: Dr. Mendez sees patient in his office. Patient has baseline memory loss. In light of bleed , he is at risk for seizure and an EEG is recommended. Recommends aricept at 10 mg vs. 20 mg which patient did not tolerate. Consider PT/OT evaluation as necessary. DVT prophylaxis: TEDs and SCDs. As per neurosurgery recommendations. No pharmacologic prophylaxis due to bleeding risk, status-post surgery for subdural hematomas. Immunizations as per protocol. My preceptor for this patient encounter was Dr. Petra Blackwood, and was physically present in the building during the encounter and was fully available. As needed, all aspects of the patient interview, examination, medical decision making process, and medical care plan development were reviewed and approved by the preceptor. Preceptor is aware and concurs with the plan as stated in the body of this note and will attest to such by his/her cosignature. VS,Fishbone, I+O VS, Fishbone, I+O Laboratory Tests 07/30/16 03:40 Red Blood Count 4.64, Mean Corpuscular Volume 92.1, Mean Corpuscular Hemoglobin 31.0, Mean Corpuscular Hemoglobin Concent 33.7, Red Cell Distribution Width 12.4 , Calcium Level 8.1 L, Aspartate Amino Transf (AST/SGOT) 19, Alanine Aminotransferase (ALT/SGPT) 16, Alkaline Phosphatase 42 L, Total Bilirubin 0.6, Total Protein 5.9 L, Albumin 2.7 L Vital Signs Date Time Temp Pulse Resp B/P (MAP) Pulse Ox O2 Delivery O2 Flow Rate FiO2 07/30/16 18:00 145/79 07/30/16 17:13 20 98 Room Air 07/30/16 16:00 98.5 76 07/28/16 12:25 3 I&O- Last 24 Hours up to 6 AM 07/30/16 05:59 Intake Total 1320 ml Output Total 2300 ml Balance -980 ml JOSE DEL REAL OGME-1 Jul 30, 2016 19:45
[2016-07-30] MEDS ORDERED: MIDAZOLAM INJ 2 MG/2 ML VIAL (J2250) As Ordered ONE (20:39)
[2016-07-30] MEDS ORDERED: ceFAZolin 1GM INJ (J0690) As Ordered ONE (20:57)
[2016-07-30] MEDS ORDERED: fentaNYL 100 MCG/2 ML INJECTION (J3010) As Ordered ONE (21:01)
[2016-07-30] MEDS ORDERED: PROPOFOL 200 MG/20 ML VIAL As Ordered ONE (21:01)
[2016-07-30] MEDS ORDERED: LIDOCAINE 2% INJ 100 MG/5 ML SDV (FOR ANES.) As Ordered ONE (21:01)
[2016-07-30] MEDS ORDERED: ROCURONIUM BROMIDE 50 MG/5 ML VIAL As Ordered ONE (21:01)
[2016-07-30] MEDS ORDERED: PHENYLephrine HCL 500 MCG/5 ML (100MCG/ML) SYRINGE (J2370) As Ordered ONE ×2 (21:08→21:11)
[2016-07-30] MEDS ORDERED: ePHEDrine SULFATE 25 MG/5 ML(5MG/ML) SYRINGE As Ordered ONE (21:15)
[2016-07-30] MEDS ORDERED: BACITRACIN OINT 30GM As Ordered ONE (21:21)
[2016-07-30] MEDS ORDERED: ONDANSETRON 4MG/2ML VIAL (J2405) As Ordered ONE (21:29)
[2016-07-30] MEDS ORDERED: GLYCOPYRROLATE INJ 0.2 MG/ML 2 ML VIAL As Ordered ONE (21:38)
[2016-07-30] MEDS ORDERED: NEOSTIGMINE 1MG/ML 5 ML SYRINGE (J2710) As Ordered ONE (21:38)
[2016-07-30] MEDS ORDERED: ONDANSETRON 4MG/2ML VIAL (J2405) IV PRN (22:30)
[2016-07-30] MEDS ORDERED: fentaNYL 100 MCG/2 ML INJECTION (J3010) IV PRN (22:30)
[2016-07-30] MEDS ORDERED: LR 1,000 ML IV SCH (22:30)
[2016-07-30] MEDS: KCL 20MEQ IN D5/NS 1000ML 1,000 ML IV SCH (23:24)
[2016-07-31] VITALS (13 sets, daily range): BP systolic 118–149; BP diastolic 59–74
[2016-07-31] MEDS ORDERED: MORPHINE 2 MG/ML 1ML SYRINGE IV PRN
[2016-07-31] MEDS ORDERED: ONDANSETRON 4MG/2ML VIAL (J2405) IV PRN
[2016-07-31] MEDS: ceFAZolin SOD 1 GM in D5W MINI-BAG PLUS 50 ML IV SCH ×3 (04:34→20:59)
[2016-07-31] MEDS ORDERED: LORazepam 2 MG/ML VIAL (J2060) As Ordered ONE (05:07)
[2016-07-31] MEDS ORDERED: LORazepam 2 MG/ML VIAL (J2060) IV ONE (05:15)
[2016-07-31] MEDS ORDERED: HALOPERIDOL 5 MG/ML VIAL (J1630) IV ONE (05:30)
[2016-07-31] MEDS: ACETAMINOPHEN TAB 650MG DOSE (2X325MG) PO SCH ×5 (06:00→23:51)
[2016-07-31 06:23] LABS: MEAN CORPUSCULAR HEMOGLOBIN 31.3 pg (27.0-33.0); MEAN CORPUSCULAR HGB CONC 34.2 g/dl (32.0-36.5); MEAN CORPUSCULAR VOLUME 91.4 fl (80.0-96.0); RED CELL DISTRIBUTION WIDTH 11.8 % (11.5-14.5); WHITE BLOOD COUNT 4.8 K/mm3 (4.0-10.0)
[2016-07-31 06:41] LABS: ALBUMIN 2.9 GM/DL (3.2-5.2); ALBUMIN/GLOBULIN RATIO 0.83 (1.00-1.93); ALKALINE PHOSPHATASE 46 U/L (45-117); ALT/SGPT 18 U/L (12-78); ANION GAP 4 MEQ/L (8-16); AST/SGOT 18 U/L (15-37); BILIRUBIN,TOTAL 0.9 MG/DL (0.2-1.0); BLOOD UREA NITROGEN 8 MG/DL (7-18); CALCIUM LEVEL 8.6 MG/DL (8.8-10.2); CARBON DIOXIDE LEVEL 29 MEQ/L (21-32); CHLORIDE LEVEL 104 MEQ/L (98-107); CREATININE FOR GFR 0.81 MG/DL (0.70-1.30); GLOMERULAR FILTRATION RATE > 60.0 (>42); GLUCOSE, FASTING 170 MG/DL (83-110); POTASSIUM SERUM 4.3 MEQ/L (3.5-5.1); SODIUM LEVEL 137 MEQ/L (136-145); TOTAL PROTEIN 6.4 GM/DL (6.4-8.2)
[2016-07-31] MEDS ORDERED: MOM 30ML SUSPENSION UDC PO PRN (08:15)
--- NOTE | 2016-07-31 09:44 | REP ---
CT HEAD WITHOUT CONTRAST: HISTORY: Subdural hematoma. COMPARISON: 07/29/2016. The patient is status post bilateral subdural drain placement. A new subdural drain is present over the left cerebral hemisphere. A chronic subdural hematoma 1.9 cm in width with acute rebleeding is present over the left cerebral hemisphere. This subdural hematoma is decreased in size. A subacute subdural hematoma 9 mm in width is present over the right cerebral hemisphere. The subdural hematoma is unchanged in size. There is mass effect with effacement of the overlying cortical sulci and partial effacement of the bodies of the lateral ventricles with minimal midline shift to the right. The midline shift is decreased compared to the previous study. The visualized sinuses are clear. IMPRESSION: 1. 1.9 cm chronic subdural hematoma with re-bleeding over the left cerebral hemisphere decreased in size compared to the previous study. 2. 9 mm subacute subdural hematoma over the right cerebral hemisphere unchanged in size compared to the previous study. There is minimal midline shift to the right that is decreased compared to the previous study. Signed by Jake Nunes MD 07/31/2016 09:53 A
[2016-07-31] MEDS: FOLIC ACID 1 MG TAB PO SCH (09:50)
[2016-07-31] MEDS: DONEPEZIL 5 MG TAB PO SCH (09:50)
[2016-07-31] MEDS: SERTRALINE HCL 25 MG TABLET PO SCH (09:50)
[2016-07-31] MEDS: MULTIVITAMINS/MINERALS THERAP 1 TAB PO SCH (09:50)
[2016-07-31] MEDS: CYANOCOBALAMIN 500 MCG TAB PO SCH (09:50)
[2016-07-31] MEDS: TAMSULOSIN 0.4 MG CAP PO SCH (09:50)
[2016-07-31] MEDS: THIAMINE 100 MG TAB PO SCH (09:51)
[2016-07-31] MEDS: KCL 20MEQ IN D5/NS 1000ML 1,000 ML IV SCH (09:51)
--- NOTE | 2016-07-31 19:40 | IPNPDOC ---
Text Note Date of Service The patient was seen on 07/31/16. NOTE Subjective: Patient seen and examined at bedside status-post neurosurgery procedure: L Frontal Twistdrill with placement of pediatric small feeding tube and removal of previous burrhole tubes and is post-operative day #1. Procedure was performed on 07/31/16. Post-operative day # 3 after Cinthia Holes placement and insertion of port for drainage of bilateral chronic SDH. Patient was resting comfortably and sleeping in bed prior to interview. Denies fevers, chills, chest pain, SOB, nausea, vomiting, diarrhea, constipation , dysuria, blurred vision, denies weakness, runny nose, sore throat, cough. Denies headache. Admits to some mid-abdominal pain. Denies numbness of his hands or feet. Aside from abdominal pain, denies pain anywhere else. At bedside, interview and exam is limited as patient is extremely sleepy and falling asleep while I talk and ask questions to him in a loud voice. In addition, nursing reports patient is complaining of having to urinate although he has a jeffers catheter in place. Objective: VS: T 97.7 P 76, 67 RR 20 BP 135/72, 125/74, Pulse Ox: 98% on 1 liters NC I/O: 3185/2796, +1.34 mL balance, UO: 1.34 mL/kg/hr Drain total: 21 mL yesterday, 5 mL today JOSE Drain #1 R Head: 9 mL JOSE Drain #2 L Head: 7 mL Head: 5 mL yesterday, 5 mL today General: Pleasant elderly male with no more tubes in Posterior Scalp and now 1 tube in the L frontal scalp. NAD. Calm and cooperative. Sleepy, in and out of sleep and consciousness. Oriented to person, place, and time. Only did not recall the exact date/day of the week. Knew year, month, town, hospital. Normal mentation. HEENT: Head: normocephalic, atraumatic. Eyes: PERRL, sclera are nonicteric. Nose: No external lesions, Throat: no pharyngeal erythema or exudates, moist buccal mucosa. A bit of a white tongue but no candidiasis suspected. Psychiatric: not tested. Respiratory: clear to auscultation bilaterally with no wheezes, rales, or rhonchi. Neck: Supple Cardiovascular: regular rate and rhythm, with no murmurs, rubs or gallops. Abdomen: soft, nondistended, no hepatosplenomegaly appreciated. Bowel sounds present but hypoactive. No tenderness to palpation of abdomen, however, exam limited as patient was very sleepy. Genitourinary: has jeffers in place. Extremities: No swelling in either lower extremity bilaterally. Musculoskeletal: Not tested due to patient being very hard to wake up. Neurological: Unable to test. Integumentary: Some bruising and abrasions noticeable in LUE. Postsurgical sites without noticeable drainage or erythema with bandages in place. However, the sites had some dried blood around bandage and skin. Vascular: +2 dorsalis pedis and radial pulses bilaterally. Laboratory data: Please see below. CBC WNL. PT/INR: 12.9/0.96. Chemistry is remarkable for fasting glucose of 170. Albumin 2.9 (L) Microbiology: Urine cx from 07/29: showed no growth Imaging: CT scan of the head: 1. 1.9 cm chronic subdural hematoma with re-bleeding over the left cerebral hemisphere decreased in size compared to the previous study. 2. 9 mm subacute subdural hematoma over the right cerebral hemisphere unchanged in size compared to the previous study. There is minimal midline shift to the right that is decreased compared to the previous study. Assessment/Plan: This is a 71 yo M presenting status-post fall with head trauma. Had CT scan of the head findings consistent with R hemisphere subacute subdural hematoma with acute rebleeding of the L hemisphere and midline shift to the L, as well as CT findings of chronic L hemispheric subdural hematoma. Is now status -post neurosurgery procedure: L Frontal Twistdrill with placement of pediatric small feeding tube and removal of placement of burrhole tubes and is post- operative day #1. Procedure was performed on 07/31/16. Post-operative day # 3 after [place] Holes placement and insertion of port for drainage of bilateral chronic SDH. Also presented for metabolic encephalopathy 2/2 brain compression in the setting of acute subdural hematoma with midline shift on imaging treated with surgery and now with improved mentation. -Acute on chronic SDH status-post surgeries as noted above: Mental status has improved and patient is AAO X 3 when interviewed. Management per neurosurgery primary team. -Numbness in L hand 3rd, 4th, and 5th digits: no complaints today. -Scalp laceration: status-post surgery with cinthia holes placement and drainage port insertion at area of scalp laceration/trauma. Management as per Neurosurgery. Will monitor clinically for signs of infection, erythema, drainage , bleeding. -HTN: Stable for now. Will hold BP medications for now and restart BP medications when patient stable. Will watch for BPs >150. Once resumed, will continue patient's carvedilol and trandolapril. -Hypernatremia: WNL today. Continue monitoring daily BMPs. -Hypokalemia: WNL. Supplementation as necessary. -BPH LUTS: Continue flomax. Urine cx showed no growth on 07/29/16, but patient complained of urinary urgency. UA unremarkable. Patient has jeffers catheter in place and is voiding. Today, the jeffers catheter will be d/c'ed. -Dementia: continue aricept. -Anxiety: continue Xanax TID PRN. -Depression: continue sertraline. -Hx of EtOH Use and withdrawal symptoms: Continue folic acid, vitamin B 12, and thiamine. Xanax TID as needed for withdrawal symptoms. -Per Dr. Mendez's communication with Dr. Blackwood previously: Dr. Mendez sees patient in his office. Patient has baseline memory loss. In light of bleed , he is at risk for seizure and an EEG is recommended. Recommends aricept at 10 mg vs. 20 mg which patient did not tolerate. PT/OT and PM&R have been consulted by physical therapy for patient to receive rehabilitation. PFS consult in place for d/c planning. DVT prophylaxis: TEDs and SCDs. As per neurosurgery recommendations. No pharmacologic prophylaxis due to bleeding risk, status-post surgery for subdural hematomas. Immunizations as per protocol. My preceptor for this patient encounter was Dr. Sanket Bee, and was physically present in the building during the encounter and was fully available. As needed, all aspects of the patient interview, examination, medical decision making process, and medical care plan development were reviewed and approved by the preceptor. Preceptor is aware and concurs with the plan as stated in the body of this note and will attest to such by his/her cosignature. Attending Note: I have independently examined this patient and all aspects of the exam and treatment decisions have been discussed with the resident. A member of the hospitalist staff will continue to follow this patient through discharge. VS,Fishbone, I+O VS, Fishbone, I+O Laboratory Tests 07/31/16 05:14 Red Blood Count 4.79, Mean Corpuscular Volume 91.4, Mean Corpuscular Hemoglobin 31.3, Mean Corpuscular Hemoglobin Concent 34.2, Red Cell Distribution Width 11.8 , Calcium Level 8.6 L, Aspartate Amino Transf (AST/SGOT) 18, Alanine Aminotransferase (ALT/SGPT) 18, Alkaline Phosphatase 46, Total Bilirubin 0.9, Total Protein 6.4, Albumin 2.9 L Vital Signs Date Time Temp Pulse Resp B/P (MAP) Pulse Ox O2 Delivery O2 Flow Rate FiO2 07/31/16 18:00 98.8 87 19 146/72 (96) 94 Room Air 07/31/16 06:00 1.0 I&O- Last 24 Hours up to 6 AM 07/31/16 06:00 Intake Total 3485 ml Output Total 2866 ml Balance 619 ml JOSE DEL REALME-1 Jul 31, 2016 19:40 SANKET BEE DO Aug 01, 2016 15:32
--- NOTE | 2016-07-31 20:47 | IPNPDOC ---
Date Seen The patient was seen on 07/31/16. Progress Note NEUROSURGERY ADMISSION DAY #4. POSTOPERATIVE DAY #4 and #1. PAIN CONTROL: Satisfactory with morphine 2 mg IV q 2 hrs PRN pain. SURGICAL PROCEDURE: 1.)[place] hole placement with insertion of 2 drains for bilateral chronic subdural hematoma (SDH). 2.) Removal of 2 drains from the right and left side of skull and cinthia hole placement with insertion of 1 new drain. Over 24 hour period: He received CT of head which shows residual chronic SDH which we will address when we see him outpatient in the office. SUBJECTIVE: Mr. Brooks is a 71-year-old male who was admitted for an acute on chronic SDH. He is just returning from radiology after having CT scan. He is wearing hand mitts. He denies any new symptoms today. He denies chills, night sweats, headache, weakness, paresthesias, fatigue, dizziness, bladder or bowel incontinence, any leg pain or swelling, any nausea or vomiting. OBJECTIVE: CLINICAL STATUS: AVSS. NEUROLOGICAL STATUS: He was sleeping upon initial evaluation. He is alert and oriented to person, place, and year. GCS = [id number] = 15 His speech is fluent. WOUND/INCISION: There are two drains placed in the superolateral aspect of the right and left side of the skull. They are wrapped with dressings at the incision site. There does not appear to be any increased drainage, any surrounding erythema, or increased pain at the site. The third drain that was placed 07/30/16 was removed today. Aida were placed for closure at the previous drain site. He slept through the procedure. CRANIAL NERVES: II through XII are intact. MOTOR: Strength is 5/5 bilaterally throughout. SENSORY: Intact to light touch in all 4 extremities. MEDICATION CHANGES OVER 24 HOURS: (added:) Sertraline for depression Aricept for dementia MOM and colace for constipation Flomax Morphine from 1mg to 2 mg IV q 2 hrs PRN pain Zofran 2 mg IV q 8 hrs PRN nausea/vomiting LABORATORY DATA: WBC= 4.8 Hemoglobin= 15.0, stable Sodium= 137 (down from yesterday, 145) Potassium= 4.3 MICRO Urine culture on 07/29/16 is negative for growth. ASSESSMENT: Acute on chronic bilateral chronic subdural hematomas. 1. Start rehab today. 2. Pain control: Satisfactory with morphine, 2 mg IV every 2 hours as needed for pain. 3. Deep venous thrombosis (DVT) prophylaxis, TEDs and sequential compression devices. 4. Seizure precautions. 5. Will DC aida in 7 days. 6. PFS consult- possible placement? 7. Constipation prophylaxis- continue MOM and colace. Maya Burgos, OMEGA-C Dr Elam VS, I&O, 24H, Fishbone Vital Signs/I&O Vital Signs Date Time Temp Pulse Resp B/P (MAP) Pulse Ox O2 Delivery O2 Flow Rate FiO2 07/31/16 14:30 61 120/63 07/31/16 12:00 98.1 20 97 Room Air 07/31/16 06:00 1.0 I&O- Last 24 Hours up to 6 AM 07/31/16 06:00 Intake Total 3485 ml Output Total 2866 ml Balance 619 ml Laboratory Data 24H LABS Laboratory Tests 2 07/31/16 05:14: Anion Gap 4L, Glomerular Filtration Rate > 60.0, Blood Urea Nitrogen 8, Creatinine 0.81, Sodium Level 137#, Potassium Level 4.3, Chloride Level 104, Carbon Dioxide Level 29, Calcium Level 8.6L, Aspartate Amino Transf (AST/SGOT) 18, Alanine Aminotransferase (ALT/SGPT) 18, Alkaline Phosphatase 46, Total Bilirubin 0.9, Total Protein 6.4, Albumin 2.9L, Albumin/Globulin Ratio 0.83L CBC/BMP Laboratory Tests 07/31/16 05:14 Red Blood Count 4.79, Mean Corpuscular Volume 91.4, Mean Corpuscular Hemoglobin 31.3, Mean Corpuscular Hemoglobin Concent 34.2, Red Cell Distribution Width 11.8 , Calcium Level 8.6 L, Aspartate Amino Transf (AST/SGOT) 18, Alanine Aminotransferase (ALT/SGPT) 18, Alkaline Phosphatase 46, Total Bilirubin 0.9, Total Protein 6.4, Albumin 2.9 L Microbiology Microbiology 07/29/16 Urine Culture - Final, Complete 07/27/16 Urine Culture - Final, Complete Staphylococcus Aureus Staphylococcus Epidermidis YEIMY BURGOS PA-C Jul 31, 2016 15:10
[2016-07-31] MEDS: OXAZEPAM 10 MG CAP PO PRN (20:59)
[2016-08-01] VITALS (8 sets, daily range): BP systolic 113–175; BP diastolic 60–76
[2016-08-01] MEDS: ACETAMINOPHEN TAB 650MG DOSE (2X325MG) PO SCH ×4 (05:48→18:19)
[2016-08-01 06:43] LABS: MEAN CORPUSCULAR HEMOGLOBIN 31.4 pg (27.0-33.0); MEAN CORPUSCULAR HGB CONC 34.5 g/dl (32.0-36.5); MEAN CORPUSCULAR VOLUME 91.2 fl (80.0-96.0); RED CELL DISTRIBUTION WIDTH 12.2 % (11.5-14.5); WHITE BLOOD COUNT 5.1 K/mm3 (4.0-10.0)
[2016-08-01 06:58] LABS: ALBUMIN 2.5 GM/DL (3.2-5.2); ALBUMIN/GLOBULIN RATIO 0.81 (1.00-1.93); ALKALINE PHOSPHATASE 39 U/L (45-117); ALT/SGPT 20 U/L (12-78); ANION GAP 5 MEQ/L (8-16); AST/SGOT 21 U/L (15-37); BILIRUBIN,TOTAL 0.6 MG/DL (0.2-1.0); BLOOD UREA NITROGEN 11 MG/DL (7-18); CARBON DIOXIDE LEVEL 28 MEQ/L (21-32); CHLORIDE LEVEL 107 MEQ/L (98-107); CREATININE FOR GFR 0.71 MG/DL (0.70-1.30); GLOMERULAR FILTRATION RATE > 60.0 (>42); GLUCOSE, FASTING 102 MG/DL (83-110); POTASSIUM SERUM 3.5 MEQ/L (3.5-5.1); SODIUM LEVEL 140 MEQ/L (136-145); TOTAL PROTEIN 5.6 GM/DL (6.4-8.2)
[2016-08-01] MEDS: OXAZEPAM 10 MG CAP PO PRN ×2 (08:04→18:19)
[2016-08-01] MEDS: FOLIC ACID 1 MG TAB PO SCH (08:05)
[2016-08-01] MEDS: DONEPEZIL 5 MG TAB PO SCH (08:05)
[2016-08-01] MEDS: CYANOCOBALAMIN 500 MCG TAB PO SCH (08:05)
[2016-08-01] MEDS: TAMSULOSIN 0.4 MG CAP PO SCH (08:05)
[2016-08-01] MEDS: MULTIVITAMINS/MINERALS THERAP 1 TAB PO SCH (08:05)
[2016-08-01] MEDS: SERTRALINE HCL 25 MG TABLET PO SCH (08:05)
[2016-08-01] MEDS: THIAMINE 100 MG TAB PO SCH (08:05)
[2016-08-01] MEDS ORDERED: THIAMINE HCL 200 MG/2 ML VIAL (J3411) IV SCH (09:00)
--- NOTE | 2016-08-01 10:45 | IPNPDOC ---
Date Seen The patient was seen on 08/01/16. Progress Note NEUROSURGERY ADMISSION DAY #5. POSTOPERATIVE DAY #5 and #2. PAIN CONTROL: Satisfactory with morphine 2 mg IV q 2 hrs PRN pain. SURGICAL PROCEDURE: 1.)[place] hole placement with insertion of 2 drains for bilateral chronic subdural hematoma (SDH). 2.) Removal of 2 drains from the right and left side of skull and cinthia hole placement with insertion of 1 new drain. Over 24 hour period: He has been transferred from ICU to [facility] 4th floor. He received a dose of Serax 10 mg PO for agitation. SUBJECTIVE: Mr. Brooks is a 71-year-old male who was admitted for an acute on chronic SDH. He states he is feeling well today and is anxious for discharge. He has been eating and drinking well. He has been walking with assistance. He denies any new symptoms today. He denies chills, night sweats, headache, weakness, paresthesias, fatigue, dizziness, bladder or bowel incontinence, any leg pain or swelling, any nausea or vomiting. OBJECTIVE: CLINICAL STATUS: AVSS. NEUROLOGICAL STATUS: He is sitting up on the edge of the bed speaking with his sitter. He is alert and oriented to person, place, date, month, and year. GCS = [id number] = 15 His speech is fluent. WOUND/INCISION: There are 3 and dressings which are intact over the skull. There does not appear to be any increased drainage, any surrounding erythema, or increased pain at the site. CRANIAL NERVES: II through XII are intact. MOTOR: Strength is 5/5 bilaterally throughout. He is able to stand up without any difficulty. SENSORY: Intact to light touch in all 4 extremities. MEDICATION CHANGES OVER 24 HOURS: D/C- vitamin B1 injection LABORATORY DATA: WBC= 5.1, and stable since admission. Hemoglobin= 13.1, decreased from yesterday at 15.0 Sodium= 140, up from yesterday, 137 Potassium= 3.5, and stable. MICRO Urine culture on 07/29/16 is negative for growth. ASSESSMENT: Improving. Acute on chronic bilateral chronic subdural hematomas. 1. Acute on chronic bilateral chronic subdural hematomas: Drained. Improved. He will start rehab today. 2. DC planning: He will require rehab for assessment of safety at home. PFS consult- possible placement? 3. Wound care: Will DC sara in 6 days. 2. Pain control: Satisfactory with morphine 2 mg IV every 2 hours as needed for pain. 3. Deep venous thrombosis (DVT) prophylaxis: TEDs and sequential compression devices. 4. Diet: as tolerated. 5. Activity: as tolerated with assistance due to his increased risk of falls and inability to understand his physical limitations. 7. Constipation prophylaxis: continue MOM and colace. 8. Urine culture finding: Urine culture from 07/27 grew staph aureus and staph epidermidis. However, on a repeat urine culture performed 07/29 there was no growth. No indication for treatment. Maya Burgos, RPA-C Dr Elma VS, I&O, 24H, Fishbone Vital Signs/I&O Vital Signs Date Time Temp Pulse Resp B/P (MAP) Pulse Ox O2 Delivery O2 Flow Rate FiO2 08/01/16 06:00 98.6 66 16 123/66 (85) 96 Room Air 07/31/16 06:00 1.0 I&O- Last 24 Hours up to 6 AM 08/01/16 06:00 Intake Total 2450 ml Output Total 2075 ml Balance 375 ml Laboratory Data 24H LABS Laboratory Tests 2 08/01/16 06:25: Anion Gap 5L, Glomerular Filtration Rate > 60.0, Blood Urea Nitrogen 11, Creatinine 0.71, Sodium Level 140, Potassium Level 3.5, Chloride Level 107, Carbon Dioxide Level 28, Calcium Level 8.0L, Aspartate Amino Transf (AST/SGOT) 21, Alanine Aminotransferase (ALT/SGPT) 20, Alkaline Phosphatase 39L, Total Bilirubin 0.6, Total Protein 5.6L, Albumin 2.5L, Albumin/Globulin Ratio 0.81L CBC/BMP Laboratory Tests 08/01/16 06:25 Red Blood Count 4.16 L, Mean Corpuscular Volume 91.2, Mean Corpuscular Hemoglobin 31.4, Mean Corpuscular Hemoglobin Concent 34.5, Red Cell Distribution Width 12.2, Calcium Level 8.0 L, Aspartate Amino Transf (AST/SGOT) 21, Alanine Aminotransferase (ALT/SGPT) 20, Alkaline Phosphatase 39 L, Total Bilirubin 0.6, Total Protein 5.6 L, Albumin 2.5 L Microbiology Microbiology 07/29/16 Urine Culture - Final, Complete 07/27/16 Urine Culture - Final, Complete Staphylococcus Aureus Staphylococcus Epidermidis BURGOS,YEIMY R. PA-C Aug 01, 2016 10:45
--- NOTE | 2016-08-01 17:20 | IPNPDOC ---
Text Note Date of Service The patient was seen on 08/01/16. NOTE Subjective: Patient seen and examined at bedside status-post neurosurgery procedure: L Frontal Twistdrill with placement of pediatric small feeding tube and removal of previous burrhole tubes and is post-operative day #2. Procedure was performed on 07/31/16. Post-operative day # 4 after Cinthia Holes placement and insertion of port for drainage of bilateral chronic SDH. Patient was resting comfortably and sleeping in bed prior to interview. Denies fevers, chills, chest pain, SOB, nausea, vomiting, diarrhea, constipation , dysuria, blurred vision, denies weakness, runny nose, sore throat, cough. Denies headache. Denies abdominal pain. Denies numbness of his hands or feet or numbness/tingling anywhere. Denies pain anywhere else. Denies any urinary symptoms. Objective: VS: Please see below. General: Pleasant elderly male with no more tubes in Posterior Scalp and now 1 tube in the L frontal scalp. NAD. Calm and cooperative. Oriented to person, place, and time. Only did not recall the exact date. Knew year, month, town, hospital. Normal mentation. HEENT: Head: normocephalic. Bandages and surgical sites present. Eyes: PERRL, sclera are nonicteric. Nose: No external lesions, Throat: no pharyngeal erythema or exudates, moist buccal mucosa. Psychiatric: Normal mood. Respiratory: clear to auscultation bilaterally with no wheezes, rales, or rhonchi. Neck: Supple Cardiovascular: regular rate and rhythm, with no murmurs, rubs or gallops. Abdomen: soft, nondistended, no hepatosplenomegaly appreciated. Bowel sounds present but hypoactive. No tenderness to palpation of abdomen. Genitourinary: no jeffers in place. Extremities: No swelling in either lower extremity bilaterally. Musculoskeletal: 5/5 in upper/lower extremities bilaterally. Normal ROM. Ambulating halls. Neurological: CN 2-12 intact bilaterally. Integumentary: Some bruising and abrasions noticeable in LUE. Postsurgical sites without noticeable drainage or erythema with bandages in place. However, the sites had some dried blood around bandage and skin. Vascular: +2 dorsalis pedis and radial pulses bilaterally. Laboratory data: Please see below. Microbiology: Urine cx from 07/29: showed no growth Imaging: CT scan head pending. Assessment/Plan: This is a 71 yo M presenting status-post fall with head trauma. Had CT scan of the head findings consistent with R hemisphere subacute subdural hematoma with acute rebleeding of the L hemisphere and midline shift to the L, as well as CT findings of chronic L hemispheric subdural hematoma. Is now status -post neurosurgery procedure: L Frontal Twistdrill with placement of pediatric small feeding tube and removal of placement of burrhole tubes and is post- operative day #2. Procedure was performed on 07/31/16. Post-operative day # 4 after Cinthia Holes placement and insertion of port for drainage of bilateral chronic SDH. Also presented for metabolic encephalopathy 2/2 brain compression in the setting of acute subdural hematoma with midline shift on imaging treated with surgery and now with improved mentation. -Acute on chronic SDH status-post surgeries as noted above: Mental status has improved and patient is AAO X 3 when interviewed. Management per neurosurgery primary team. -Numbness in L hand 3rd, 4th, and 5th digits: no complaints today. -Scalp laceration: status-post surgery with cinthia holes placement and drainage port insertion at area of scalp laceration/trauma. Management as per Neurosurgery. Will monitor clinically for signs of infection, erythema, drainage , bleeding. -HTN: Stable for now. Will hold BP medications for now and restart BP medications when patient stable. Will watch for BPs >150. Once resumed, will continue patient's carvedilol and trandolapril. -Hypernatremia: WNL today. Continue monitoring daily BMPs. -Hypokalemia: WNL. Supplementation as necessary. -BPH LUTS: Continue flomax. Urine cx showed no growth on 07/29/16. No urinary complaints today. UA unremarkable. [place] catheter was d/c'ed. -Dementia: continue aricept. -Anxiety: continue Xanax TID PRN. -Depression: continue sertraline. -Hx of EtOH Use and withdrawal symptoms: Continue folic acid, vitamin B 12, and thiamine. Xanax TID as needed for withdrawal symptoms. -Per Dr. Mendez's communication with Dr. Blackwood previously: Dr. Mendez sees patient in his office. Patient has baseline memory loss. In light of bleed , he is at risk for seizure and an EEG is recommended. Recommends aricept at 10 mg vs. 20 mg which patient did not tolerate. Have ordered EEG today. PT/OT and PM&R have been consulted by physical therapy for patient to receive rehabilitation. PFS consult in place for d/c planning. DVT prophylaxis: TEDs and SCDs. As per neurosurgery recommendations. No pharmacologic prophylaxis due to bleeding risk, status-post surgery for subdural hematomas. Immunizations as per protocol. My preceptor for this patient encounter was Dr. Sanket Bee, and was physically present in the building during the encounter and was fully available. As needed, all aspects of the patient interview, examination, medical decision making process, and medical care plan development were reviewed and approved by the preceptor. Preceptor is aware and concurs with the plan as stated in the body of this note and will attest to such by his/her cosignature. Attending Note: I have independently examined this patient and all aspects of the exam and treatment decisions have been discussed with the resident. A member of the hospitalist staff will continue to follow this patient through discharge. VS,Fishbone, I+O VS, Fishbone, I+O Laboratory Tests 08/01/16 06:25 Red Blood Count 4.16 L, Mean Corpuscular Volume 91.2, Mean Corpuscular Hemoglobin 31.4, Mean Corpuscular Hemoglobin Concent 34.5, Red Cell Distribution Width 12.2, Calcium Level 8.0 L, Aspartate Amino Transf (AST/SGOT) 21, Alanine Aminotransferase (ALT/SGPT) 20, Alkaline Phosphatase 39 L, Total Bilirubin 0.6, Total Protein 5.6 L, Albumin 2.5 L Vital Signs Date Time Temp Pulse Resp B/P (MAP) Pulse Ox O2 Delivery O2 Flow Rate FiO2 08/01/16 14:57 18 Room Air 08/01/16 14:00 97.5 61 132/63 (86) 96 07/31/16 06:00 1.0 I&O- Last 24 Hours up to 6 AM 08/01/16 05:59 Intake Total 3000 ml Output Total 2280 ml Balance 720 ml NASIMAJOSE OGME-1 Aug 01, 2016 17:20 SANKET BEE DO Aug 03, 2016 15:24
[2016-08-02] MEDS: ACETAMINOPHEN TAB 650MG DOSE (2X325MG) PO SCH ×4 (00:07→17:27)
[2016-08-02 06:00] VITALS: BP 144/69
[2016-08-02 06:59] LABS: MEAN CORPUSCULAR HEMOGLOBIN 31.6 pg (27.0-33.0); MEAN CORPUSCULAR HGB CONC 34.7 g/dl (32.0-36.5); MEAN CORPUSCULAR VOLUME 91.3 fl (80.0-96.0); RED CELL DISTRIBUTION WIDTH 12.2 % (11.5-14.5); WHITE BLOOD COUNT 5.3 K/mm3 (4.0-10.0)
[2016-08-02 07:16] LABS: ALBUMIN 3.2 GM/DL (3.2-5.2); ALBUMIN/GLOBULIN RATIO 0.91 (1.00-1.93); ALKALINE PHOSPHATASE 48 U/L (45-117); ALT/SGPT 23 U/L (12-78); ANION GAP 5 MEQ/L (8-16); AST/SGOT 19 U/L (15-37); BILIRUBIN,TOTAL 0.6 MG/DL (0.2-1.0); BLOOD UREA NITROGEN 8 MG/DL (7-18); CALCIUM LEVEL 8.6 MG/DL (8.8-10.2); CARBON DIOXIDE LEVEL 30 MEQ/L (21-32); CHLORIDE LEVEL 107 MEQ/L (98-107); CREATININE FOR GFR 0.76 MG/DL (0.70-1.30); GLOMERULAR FILTRATION RATE > 60.0 (>42); GLUCOSE, FASTING 102 MG/DL (83-110); SODIUM LEVEL 142 MEQ/L (136-145); TOTAL PROTEIN 6.7 GM/DL (6.4-8.2)
[2016-08-02] MEDS: MULTIVITAMINS/MINERALS THERAP 1 TAB PO SCH (08:49)
[2016-08-02] MEDS: THIAMINE 100 MG TAB PO SCH (08:49)
[2016-08-02] MEDS: FOLIC ACID 1 MG TAB PO SCH (08:50)
[2016-08-02] MEDS: CYANOCOBALAMIN 500 MCG TAB PO SCH (08:50)
[2016-08-02] MEDS: DONEPEZIL 5 MG TAB PO SCH (08:50)
[2016-08-02] MEDS: OXAZEPAM 10 MG CAP PO PRN ×2 (08:50→17:27)
[2016-08-02] MEDS: SERTRALINE HCL 25 MG TABLET PO SCH (08:50)
[2016-08-02] MEDS: TAMSULOSIN 0.4 MG CAP PO SCH (08:50)
[2016-08-02] MEDS: DOCUSATE SODIUM 100 MG CAP PO PRN (08:54)
--- NOTE | 2016-08-02 08:59 | ROOPDOC ---
[facility] Report Of Operation Report of Operation DATE OF SURGERY: 07/30/2016 SURGEON: Dr. Mary Elam TOW PICKER: None PREOPERATIVE DIAGNOSIS: Bilateral chronic subdural hematomas (cSDH) POSTOPERATIVE DIAGNOSIS: Same PROCEDURE PERFORMED: 1. Removal of bilateral parietal SEPS 2. Margareth holes placement 3. Insertion of port for drainage of L frontal chronic SDH. ANESTHESIA: GETA. ESTIMATED BLOOD LOSS: Minimal. FINDINGS : L frontal chronic subdural hematomas. DRAINS: GP drains x 1 COMPLICATIONS: None. DISPOSITION: Stable to the PACU. INDICATIONS FOR THE PROCEDURE HISTORY: Mr. Brooks is a 71 y/o M who presents to the hospital after fall and scalp laceration on the back of the head. Examination reveal s the signs, symptoms and radiographic evidence of chronic subdural hematoma decreasing mental status, weakness, tendency to fall). He underwent bilateral parietal SEPS placement and drainage. DIAGNOSTIC STUDY: Post-op head CT scan showed resolution of cSDH on R side, however, L side still had local mass effect from loculated frontal cSDH. The desion was made to proceed with SEPS placement on L frontal side for drainage this collection. SURGICAL RISKS: The patient most likely has underlying dementia and disoriented, unable to provide consent. His daughter was well apprised of all objectives, benefits, risks and potential complications of the procedure, including but not limited to : worsening of current status, the possible need for further procedures, the risk of infection, headaches, CSF leak, possible spinal nerve injury resulting in paralysis, infection, injury to major vessels causing hemorrhage, stroke, loss of language function, coma and even . No assurance was given whether symptoms would improve following the procedure. The surgery is technically difficult procedure and despite the significant discomfort for the patient and the best effort of the physician, the surgery may be unsuccessful or may need to be aborted. Informed consent was obtained and secured in the chart after the patient and family voiced understanding of these risks and decided to proceed with the operation. DESCRIPTION OF THE PROCEDURE The patient was transferred to the operating room. He was given preoperative prophylactic IV antibiotics. ANESTHESIA: The patient was sedated and intubated without difficulty by the anesthesia service. Eyes were taped shut after ointment was applied to prevent corneal abrasion. A Brina Hugger was placed over the upper body to maintain control of core body temperature. POSITIONING: The patient was supine on OR table with his head on horse shoe balance screwhead polisher. All pressure points were carefully padded. OPERATIVE TECHNIQUE: The patient was prepped and draped in the standard sterile fashion. Bi-parietal SEPSes has been bilaterally removed from frm skull and wound cleaned and closed with metal sara. Local anesthesic was infiltrated along the line of the planned skin incisions on L frontal area behind hair line, which was opened sharply with a # 10 scalpel blade. Hemostasis was achieved utilizing monopolar and bipolar electrocautery. The scalp was reflected and held in place with self-retaining retractors. Utilizing the hand-held lift truck mechanic drill and a 5 mm twist drill, a small hole craniotomy was performed and dura matter has been open. Old blood came out under high pressure. [employer] subdural drainage port has been screwed into the twist hole. The drain has been attached to the port and secured with silk sutures. Scalp has been closed by metal sara. Bacitracin ointment has been applied to the new and previous wounds and sterile dressing has been placed over closed wounds. All sponge counts, needle counts and instrument counts were correct at the end of the case times two. The patient tolerated the procedure well, without any complications and was transferred in stable condition to the recovery room. MARY ELAM MD Aug 02, 2016 08:59
[2016-08-02] MEDS ORDERED: NORCO, ANEXSIA 5/325MG TABLET (HYDROcodone/ACETAMINOPHEN) PO PRN (09:15)
[2016-08-02] MEDS ORDERED: ONDANSETRON 4 MG TAB (S0181) PO PRN (09:15)
[2016-08-02 10:00] VITALS: BP 138/82
--- NOTE | 2016-08-02 10:13 | IPNPDOC ---
Text Note Date of Service The patient was seen on 08/02/16. NOTE Subjective: Patient seen and examined at bedside status-post neurosurgery procedure: L Frontal Twistdrill with placement of pediatric small feeding tube and removal of previous burrhole tubes and is post-operative day #3. Procedure was performed on 07/31/16. Post-operative day # 5 after Cinthia Holes placement and insertion of port for drainage of bilateral chronic SDH. Patient was ambulating with walker around the PCU prior to start of the interview. Patient only complains of some vague anxiety that has developed over the past 1- 2 days. Reports feeling "apprehensive" and described it as "what is going to happen next?" He admits to his recently passing away and being prescribed "too many pills". Also states he feels like he has to have a bowel movement but can't. He received some stool softeners this morning. Otherwise he denies fevers , chills, chest pain, SOB, nausea, vomiting, diarrhea, dysuria, blurred vision, denies weakness, runny nose, sore throat, cough. Denies headache. Denies abdominal pain. Denies numbness of his hands or feet or numbness/tingling anywhere. Denies pain anywhere else. Denies any urinary symptoms. Denies swelling. In addition, nurse called me in the afternoon regarding patient developing some serpentiginous movements of his tongue where he would stick out his tongue and back in repeatedly spontaneously at times. Was worried about tardive dyskinesia as he had not been doing this earlier during her shift. In addition, patient frequently coming out of his room to the nurse's station to ask when he could go home. Acting and feeling restless. Objective: VS: Please see below. General: Pleasant elderly male with no more tubes in Posterior Scalp or L frontal scalp. NAD. Cooperative. Oriented to person, place, and time. Normal mentation. HEENT: Head: normocephalic. Bandages and surgical sites present. Eyes: PERRL, sclera are nonicteric. Nose: No external lesions, Throat: no pharyngeal erythema or exudates, moist buccal mucosa. Psychiatric: Anxious. Repeatedly stands up and sits back down. He did this several times during the interview. Speech intact. Respiratory: clear to auscultation bilaterally with no wheezes, rales, or rhonchi. Neck: Supple Cardiovascular: regular rate and rhythm, with no murmurs, rubs or gallops. Abdomen: soft, nondistended, no hepatosplenomegaly appreciated. Bowel sounds present but hypoactive. No tenderness to palpation of abdomen. Genitourinary: no jeffers in place. Extremities: No swelling in either lower extremity bilaterally. Musculoskeletal: Normal ROM. Ambulating halls. Neurological: Answers questions appropriately. Moves all extremities. Ambulates with walker. Patient seems to have some serpentiginous movements of his tongue that may be the development of some tardive dyskinesia (patient was given haldol ~2 days ago for agitation). Integumentary: Some bruising and abrasions noticeable in LUE. Postsurgical sites without noticeable drainage or erythema with bandages in place. However, the sites had some dried blood around bandage and skin. Vascular: +2 dorsalis pedis and radial pulses bilaterally. Laboratory data: Please see below. Microbiology: Urine cx from 07/29: showed no growth Imaging: No new imaging Assessment/Plan: This is a 71 yo M presenting status-post fall with head trauma. Had CT scan of the head findings consistent with R hemisphere subacute subdural hematoma with acute rebleeding of the L hemisphere and midline shift to the L, as well as CT findings of chronic L hemispheric subdural hematoma. Is now status -post neurosurgery procedure: L Frontal Twistdrill with placement of pediatric small feeding tube and removal of placement of burrhole tubes and is post-operative day #3. Procedure was performed on 07/31/16. Post-operative day #5 after Cinthia Holes placement and insertion of port for drainage of bilateral chronic SDH. Also presented for metabolic encephalopathy 2/2 brain compression in the setting of acute subdural hematoma with midline shift on imaging treated with surgery and now with improved mentation. -Acute on chronic SDH status-post surgeries as noted above: Mental status has improved and patient is AAO X 3 when interviewed. Management per neurosurgery primary team. -Numbness in L hand 3rd, 4th, and 5th digits: no complaints today. -Scalp laceration: status-post surgery with cinthia holes placement and drainage port insertion at area of scalp laceration/trauma. Also status-post placement of L Frontal Twistdrill with placement of pediatric small feeding tube and removal of burrhole tubes: Management as per Neurosurgery. Will monitor clinically for signs of infection, erythema, drainage, bleeding. -HTN: Stable and BPs are increasing. Will restart carvedilol and trandolapril. -Hypernatremia: WNL today. Continue monitoring daily BMPs. -Hypokalemia: WNL. Supplementation as necessary. -BPH LUTS: Continue flomax. Urine cx showed no growth on 07/29/16. No urinary complaints today. UA unremarkable. Jeffers catheter was d/c'ed. -Dementia: continue aricept. -Anxiety: Uncontrolled. Patient feels very apprehensive. Patient not on Xanax TID PRN since after 2nd surgery. He seems to be quite anxious and repeatedly getting up out of bed and chair. Have consulted Psychiatry for evaluation and further recommendations. Xanax may not be recommended as this is a drug listed in Beer's criteria. However, will await Psych's recommendation. -Development of Possible Tardive Dyskinesia: On viewing patient, it does not seem like true tardive dyskinesia. Patient sticks tongue out and back in. He had not been doing this before and just started doing this today. He is status- post haldol ~2 days ago which could certainly cause tardive dyskinesia. Have ordered CT Scan of the Head without Contrast and consulted Dr. Mendez of Neurology. -Depression: continue sertraline. -Hx of EtOH Use and withdrawal symptoms: Continue folic acid, vitamin B 12, and thiamine. Not receiving: Xanax TID as needed for withdrawal symptoms since 2nd surgery. -Per Dr. Mendez's communication with Dr. Blackwood previously: Dr. Mendez sees patient in his office. Patient has baseline memory loss. In light of bleed , he is at risk for seizure and an EEG is recommended. Recommends aricept at 10 mg vs. 20 mg which patient did not tolerate. Have ordered EEG today. EEG pending. PT/OT and PM&R have been consulted by physical therapy for patient to receive rehabilitation. PFS consult in place for d/c planning. DVT prophylaxis: TEDs and SCDs. As per neurosurgery recommendations. No pharmacologic prophylaxis due to bleeding risk, status-post surgery for subdural hematomas. Immunizations as per protocol. My preceptor for this patient encounter was Dr. Sanket Bee, and was physically present in the building during the encounter and was fully available. As needed, all aspects of the patient interview, examination, medical decision making process, and medical care plan development were reviewed and approved by the preceptor. Preceptor is aware and concurs with the plan as stated in the body of this note and will attest to such by his/her cosignature. Attending Note: I have independently examined this patient and all aspects of the exam and treatment decisions have been discussed with the resident. A member of the hospitalist staff will continue to follow this patient through discharge. VS,Fishbone, I+O VS, Fishbone, I+O Laboratory Tests 08/02/16 06:28 Red Blood Count 4.43, Mean Corpuscular Volume 91.3, Mean Corpuscular Hemoglobin 31.6, Mean Corpuscular Hemoglobin Concent 34.7, Red Cell Distribution Width 12.2 , Calcium Level 8.6 L, Aspartate Amino Transf (AST/SGOT) 19, Alanine Aminotransferase (ALT/SGPT) 23, Alkaline Phosphatase 48, Total Bilirubin 0.6, Total Protein 6.7, Albumin 3.2 # Vital Signs Date Time Temp Pulse Resp B/P (MAP) Pulse Ox O2 Delivery O2 Flow Rate FiO2 08/02/16 06:00 98.0 92 20 144/69 (94) 95 08/01/16 18:00 Room Air 07/31/16 06:00 1.0 I&O- Last 24 Hours up to 6 AM 08/02/16 06:00 Intake Total 1620 ml Output Total 950 ml Balance 670 ml JOSE DEL REALME-1 Aug 02, 2016 10:13 SANKET BEE DO Aug 03, 2016 15:25
--- NOTE | 2016-08-02 10:26 | IPNPDOC ---
Date Seen The patient was seen on 08/02/16. Progress Note NEUROSURGERY ADMISSION DAY #6. POSTOPERATIVE DAY #5 and #3. PAIN CONTROL: Satisfactory with morphine 2mg IV q 2 hrs PRN for pain and Tylenol 650 mg PO q 6 hrs PRN for pain. SURGICAL PROCEDURE: 1.)[place] hole placement with insertion of 2 drains for bilateral chronic subdural hematoma (SDH). 2.) Removal of 2 drains from the right and left side of skull and cinthia hole placement with insertion of 1 new drain. Over 24 hour period: He was assessed by acute rehab- felt short term rehab was more appropriate. He has been assessed by OT- He did not require Serax last night. Although, nursing reports his symptoms do appear worse at night. SUBJECTIVE: Mr. Brooks is a 71-year-old male who was admitted for an acute on chronic bilateral SDH on 07/27/16 . He states he is "antsy" and paces the room, but otherwise feeling well today. He remains anxious for discharge. He has been eating and drinking well. He has been walking with assistance. He denies any new symptoms today. He denies chills, night sweats, headache, weakness, paresthesias, fatigue, dizziness, bladder or bowel incontinence, any leg pain or swelling, any nausea or vomiting. OBJECTIVE: CLINICAL STATUS: AVSS. NEUROLOGICAL STATUS: He is pacing the room. His ambulation is much improved since his initial arrival to the hospital. He is alert and oriented to person, place, date, month, and year. GCS = [id number] = 15. His speech is fluent. WOUND/INCISION: There are 3 and dressings which are intact over the skull. There does not appear to be any increased drainage, any surrounding erythema, or increased pain at the site. CRANIAL NERVES: II through XII are intact. MOTOR: Strength is 5/5 bilaterally throughout. He is able to stand up without any difficulty. SENSORY: Intact to light touch in all 4 extremities. MEDICATION CHANGES OVER 24 HOURS: None LABORATORY DATA: WBC= 5.3, and stable since admission. Hemoglobin= 14.0 Sodium= 142 Potassium= 4.0 ASSESSMENT: Improving. Acute on chronic bilateral chronic subdural hematomas. 1. Acute on chronic bilateral chronic subdural hematomas: Drained. Improved. 2. Underlying dementia: Will consult psychiatry for assessment of his mental status and mental capacity. For symptoms of sundowning delirium, please call hospitalist. 3. DC planning: [facility] has been contacted and working on discharge to short term rehab. Once this is arranged, he will be discharged. 4. Wound care: Will DC sara in 5 days. 5. Pain control: D/C morphine IV PRN. Start Vichy 5/325 mg PO q 4 hrs PRN. Cont Tylenol 650 mg PO q 6 hrs PRN. 6. Deep venous thrombosis (DVT) prophylaxis: TEDs and sequential compression devices. 7. Diet: as tolerated, with supervision. 8. Activity: as tolerated with assistance due to his increased risk of falls and inability to understand his physical limitations. 9. Nausea prophylaxis: D/C Zofran 2 mg IV q 8 hrs PRN. Start Zofran 4mg PO q 8 hrs PRN. 10. Constipation prophylaxis: continue MOM and colace. Maya Burgos, RPA-C Dr Elam VS, I&O, 24H, Fishbone Vital Signs/I&O Vital Signs Date Time Temp Pulse Resp B/P (MAP) Pulse Ox O2 Delivery O2 Flow Rate FiO2 08/02/16 06:00 98.0 92 20 144/69 (94) 95 08/01/16 18:00 Room Air 07/31/16 06:00 1.0 I&O- Last 24 Hours up to 6 AM 08/02/16 06:00 Intake Total 1620 ml Output Total 950 ml Balance 670 ml Laboratory Data 24H LABS Laboratory Tests 2 08/02/16 06:28: Anion Gap 5L, Glomerular Filtration Rate > 60.0, Blood Urea Nitrogen 8, Creatinine 0.76, Sodium Level 142, Potassium Level 4.0, Chloride Level 107, Carbon Dioxide Level 30, Calcium Level 8.6L, Aspartate Amino Transf (AST/SGOT) 19, Alanine Aminotransferase (ALT/SGPT) 23, Alkaline Phosphatase 48, Total Bilirubin 0.6, Total Protein 6.7, Albumin 3.2#, Albumin/Globulin Ratio 0.91L CBC/BMP Laboratory Tests 08/02/16 06:28 Red Blood Count 4.43, Mean Corpuscular Volume 91.3, Mean Corpuscular Hemoglobin 31.6, Mean Corpuscular Hemoglobin Concent 34.7, Red Cell Distribution Width 12.2 , Calcium Level 8.6 L, Aspartate Amino Transf (AST/SGOT) 19, Alanine Aminotransferase (ALT/SGPT) 23, Alkaline Phosphatase 48, Total Bilirubin 0.6, Total Protein 6.7, Albumin 3.2 # Microbiology Microbiology 07/29/16 Urine Culture - Final, Complete 07/27/16 Urine Culture - Final, Complete Staphylococcus Aureus Staphylococcus Epidermidis YEIMY BURGOS PA-C Aug 02, 2016 10:08
[2016-08-02] MEDS: CARVedilol 6.25 MG TAB PO SCH ×2 (12:24→21:25)
[2016-08-02] MEDS: TRANDOLAPRIL 1 MG TAB PO SCH (12:25)
[2016-08-02] MEDS: SENOKOT S TAB PO SCH ×2 (12:25→21:25)
[2016-08-02 14:00] VITALS: BP 105/63
--- NOTE | 2016-08-02 16:12 | REP ---
CT HEAD WITHOUT CONTRAST: HISTORY: Altered mental status. COMPARISON: 07/31/2016 The patient is status post bilateral subdural drain placement. The patient is status post removal of a left frontal convexity catheter. A chronic subdural hematoma 1.9 cm in width with rebleeding is present over the left cerebral hemisphere. The subdural hematoma is unchanged in size compared to the previous study. A subacute subdural hematoma 9 mm in width is present over the right cerebral hemisphere. The subdural hematoma is unchanged in size. There is mass effect with effacement of the overlying cortical sulci and bodies of the lateral ventricles with very minimal midline shift to the right. This is unchanged compared to the previous study. The visualizes sinuses are clear. IMPRESSION: 1. 1.9 cm chronic subdural hematoma with rebleeding over the left cerebral hemisphere, unchanged in size compared to the previous study. 2. 9 mm subacute subdural hematoma over the right cerebral hemisphere, unchanged compared to the previous study. There is minimal midline shift to the right that is unchanged compared to the previous study. Signed by Jake Nunes MD 08/02/2016 04:16 P
[2016-08-02 18:00] VITALS: BP 140/82
[2016-08-02 22:00] VITALS: BP 137/74
[2016-08-03] VITALS (7 sets, daily range): BP systolic 113–156; BP diastolic 61–90
[2016-08-03] MEDS: ACETAMINOPHEN TAB 650MG DOSE (2X325MG) PO SCH ×4 (00:23→17:37)
[2016-08-03] MEDS: OXAZEPAM 10 MG CAP PO PRN ×3 (03:11→20:14)
[2016-08-03 06:41] LABS: MEAN CORPUSCULAR HEMOGLOBIN 31.6 pg (27.0-33.0); MEAN CORPUSCULAR HGB CONC 34.1 g/dl (32.0-36.5); MEAN CORPUSCULAR VOLUME 92.7 fl (80.0-96.0); RED CELL DISTRIBUTION WIDTH 12.3 % (11.5-14.5); WHITE BLOOD COUNT 4.8 K/mm3 (4.0-10.0)
[2016-08-03 06:52] LABS: ALBUMIN 2.9 GM/DL (3.2-5.2); ALBUMIN/GLOBULIN RATIO 0.97 (1.00-1.93); ALKALINE PHOSPHATASE 40 U/L (45-117); ALT/SGPT 19 U/L (12-78); ANION GAP 6 MEQ/L (8-16); AST/SGOT 16 U/L (15-37); BILIRUBIN,TOTAL 0.5 MG/DL (0.2-1.0); BLOOD UREA NITROGEN 8 MG/DL (7-18); CALCIUM LEVEL 8.4 MG/DL (8.8-10.2); CARBON DIOXIDE LEVEL 29 MEQ/L (21-32); CHLORIDE LEVEL 107 MEQ/L (98-107); CREATININE FOR GFR 0.68 MG/DL (0.70-1.30); GLOMERULAR FILTRATION RATE > 60.0 (>42); GLUCOSE, FASTING 96 MG/DL (83-110); POTASSIUM SERUM 3.9 MEQ/L (3.5-5.1); SODIUM LEVEL 142 MEQ/L (136-145); TOTAL PROTEIN 5.9 GM/DL (6.4-8.2)
[2016-08-03] MEDS: CYANOCOBALAMIN 500 MCG TAB PO SCH (09:08)
[2016-08-03] MEDS: SERTRALINE HCL 25 MG TABLET PO SCH (09:08)
[2016-08-03] MEDS: TRANDOLAPRIL 1 MG TAB PO SCH (09:09)
[2016-08-03] MEDS: THIAMINE 100 MG TAB PO SCH (09:10)
[2016-08-03] MEDS: TAMSULOSIN 0.4 MG CAP PO SCH (09:10)
[2016-08-03] MEDS: SENOKOT S TAB PO SCH ×2 (09:10→20:13)
[2016-08-03] MEDS: MULTIVITAMINS/MINERALS THERAP 1 TAB PO SCH (09:10)
[2016-08-03] MEDS: FOLIC ACID 1 MG TAB PO SCH (09:10)
[2016-08-03] MEDS: DONEPEZIL 5 MG TAB PO SCH (09:10)
[2016-08-03] MEDS: CARVedilol 6.25 MG TAB PO SCH ×2 (09:11→20:13)
--- NOTE | 2016-08-03 10:41 | IPNPDOC ---
Date Seen The patient was seen on 08/03/16. Progress Note NEUROSURGERY ADMISSION DAY #7. POSTOPERATIVE DAY #6 and #4. PAIN CONTROL: Satisfactory with Stanton 5/325mg PO q 4 hrs PRN for pain and Tylenol 650 mg PO q 6 hrs PRN for pain. SURGICAL PROCEDURE: 1.)Cinthia hole placement with insertion of 2 drains in right and left side parietal region for bilateral chronic subdural hematoma (SDH). 2.) Removal of 2 drains from the right and left side of skull and cinthia hole placement with insertion of 1 new drain in left frontal region. Over 24 hour period: He received a CT of head which showed no changes since last study. Consult to psych placed yesterday for assessment of mental status and mental capacity. Spoke with Dr Ng today regarding consult. He states he will be by today to assess patient. Per nurse, Short term rehab will accept patient once his agitation/delirium is managed. SUBJECTIVE: Mr. Brooks is a 71-year-old male who was admitted for an acute on chronic bilateral SDH on 07/27/16 . He states he feels anxious and feels unable to sit still. He states he is not remembering things. When asked what kind of things he replies "It is hard to describe." He remains anxious for discharge. He has been eating and drinking well. He has been walking with assistance. He denies any new symptoms today. He denies chills, night sweats, headache, weakness, paresthesias, fatigue, dizziness, bladder or bowel incontinence, any leg pain or swelling, any nausea or vomiting. OBJECTIVE: CLINICAL STATUS: AVSS. NEUROLOGICAL STATUS: He is alert and oriented to person, place, date, month, and year. GCS = E4M6V5 = 15. His speech is fluent. He is anxious. He protrudes his tongue multiple times consecutively during conversation. WOUND/INCISION: There are 3 dressings which are intact over the skull. There does not appear to be any increased drainage, any surrounding erythema, or increased pain at the site. CRANIAL NERVES: II through XII are intact. MOTOR: Strength is 5/5 bilaterally throughout. He is able to stand up without any difficulty. SENSORY: Intact to light touch in all 4 extremities. MEDICATION CHANGES OVER 24 HOURS: (Added) Senna PO BID (Added) Stanton 5/325mg PO q 4 hrs PRN pain (Added) Zofran 4 mg q 12 hrs PRN nausea (Added) Mavik 2 mg PO daily (D/C) Zofran IV (D/C) Morphine IV LABORATORY DATA: WBC= 4.8, and stable since admission. Hemoglobin= 13.0, down from yesterdays 14.0 Sodium= 142, stable Potassium= 3.9, stable IMAGING: CT head, 08/02/16. Unchanged since prior study. ASSESSMENT: Improving. Acute on chronic bilateral chronic subdural hematomas. 1. Acute on chronic bilateral chronic subdural hematomas: Drained. Improved. 2. Underlying dementia: Psychiatry has been consulted yesterday for assessment of his mental status and mental capacity. There was no response to my page. The office was called and message has been left for consult and to call PA to discuss this patient. Paged again today, spoke with Dr Ng regarding patient. For symptoms of delirium, please call hospitalist. 3. DC planning: [facility] has been contacted and working on discharge to short term rehab. Per nurse, Short term rehab will accept patient once agitation/delirium managed. Once again, waiting for psych consult and their recommendations. Once this is managed and arranged, he will be discharged to short term. 4. Wound care: DC sara over incision in 4 days. Will remove the dressings today. 5. Pain control: Cont Stanton 5/325 mg PO q 4 hrs PRN and Tylenol 650 mg PO q 6 hrs PRN. 6. Deep venous thrombosis (DVT) prophylaxis: TEDs and sequential compression devices. 7. Diet: as tolerated, with supervision. 8. Activity: as tolerated with assistance due to his increased risk of falls and inability to understand his physical limitations. 9. Nausea prophylaxis: Cont Zofran 4mg PO q 8 hrs PRN. 10. Constipation prophylaxis: continue MOM and colace. Thank you for all consulting providers for your much appreciated help regarding care of Mr Brooks. Maya Burgos, RPA-C Dr Elam VS, I&O, 24H, Fishbone Vital Signs/I&O Vital Signs Date Time Temp Pulse Resp B/P (MAP) Pulse Ox O2 Delivery O2 Flow Rate FiO2 08/03/16 09:11 67 120/61 08/03/16 06:00 98.6 18 94 Room Air 07/31/16 06:00 1.0 I&O- Last 24 Hours up to 6 AM 08/03/16 06:00 Intake Total 720 ml Output Total 300 ml Balance 420 ml Laboratory Data 24H LABS Laboratory Tests 2 08/03/16 06:10: Anion Gap 6L, Glomerular Filtration Rate > 60.0, Blood Urea Nitrogen 8, Creatinine 0.68L, Sodium Level 142, Potassium Level 3.9, Chloride Level 107, Carbon Dioxide Level 29, Calcium Level 8.4L, Aspartate Amino Transf (AST/SGOT) 16, Alanine Aminotransferase (ALT/SGPT) 19, Alkaline Phosphatase 40L, Total Bilirubin 0.5, Total Protein 5.9L, Albumin 2.9L, Albumin/Globulin Ratio 0.97L CBC/BMP Laboratory Tests 08/03/16 06:10 Red Blood Count 4.11 L, Mean Corpuscular Volume 92.7, Mean Corpuscular Hemoglobin 31.6, Mean Corpuscular Hemoglobin Concent 34.1, Red Cell Distribution Width 12.3, Calcium Level 8.4 L, Aspartate Amino Transf (AST/SGOT) 16, Alanine Aminotransferase (ALT/SGPT) 19, Alkaline Phosphatase 40 L, Total Bilirubin 0.5, Total Protein 5.9 L, Albumin 2.9 L Microbiology Microbiology 07/29/16 Urine Culture - Final, Complete 07/27/16 Urine Culture - Final, Complete Staphylococcus Aureus Staphylococcus Epidermidis YEIMY BURGOS PA-C Aug 03, 2016 10:19
--- NOTE | 2016-08-03 10:56 | IPNPDOC ---
Text Note Date of Service The patient was seen on 08/03/16. NOTE Subjective: Patient seen and examined at bedside status-post neurosurgery procedure: L Frontal Twistdrill with placement of pediatric small feeding tube and removal of previous burrhole tubes and is post-operative day #4. Procedure was performed on 07/31/16. Post-operative day # 6 after Cinthia Holes placement and insertion of port for drainage of bilateral chronic SDH. Patient ambulating in room without difficulty. Daughter present at bedside and reports that patient's tongue movements began after he started drinking. Always been a social drinker but has been more heavily drinking since his a few weeks ago. Tongue movements also started when he started heavily drinking. Otherwise he denies fevers, chills, chest pain, SOB, nausea, vomiting, diarrhea, dysuria, blurred vision, denies weakness, runny nose, sore throat, cough. Denies headache. Denies abdominal pain. Denies numbness of his hands or feet or numbness/tingling anywhere. Denies pain anywhere else. Denies any urinary symptoms. Denies swelling. Patient still admits to anxiety. Daughter states patient was on a PRN anxiety medication, but cannot remember the name of it. Patient and daughter asking when patient will be discharged and what the next step is. Asking where patient will go to rehab. Daughter states patient is early-onset dementia and lives at home alone. Patient offers no other complaints today except for "feeling trapped" and wanting to leave hospital. Objective: VS: Please see below. General: Pleasant elderly male with no more tubes in Posterior Scalp or L frontal scalp. NAD. Cooperative. Oriented to person, place, and time. Normal mentation. HEENT: Head: normocephalic. Bandages and surgical sites present. Eyes: PERRL, sclera are nonicteric. Nose: No external lesions, Throat: no pharyngeal erythema or exudates, moist buccal mucosa. Psychiatric: Anxious. Repeatedly stands up and sits back down. Speech intact. Respiratory: clear to auscultation bilaterally with no wheezes, rales, or rhonchi. Neck: Supple Cardiovascular: regular rate and rhythm, with no murmurs, rubs or gallops. Abdomen: soft, nondistended, no hepatosplenomegaly appreciated. Bowel sounds present but hypoactive. No tenderness to palpation of abdomen. Genitourinary: no jeffers in place. Extremities: No swelling in either lower extremity bilaterally. Musculoskeletal: Normal ROM. Ambulating halls. Neurological: Answers questions appropriately. Moves all extremities. Ambulates with walker. Still noticeable tongue movements today. Integumentary: Some bruising and abrasions noticeable in LUE. Postsurgical sites without noticeable drainage or erythema with bandages in place. However, the sites had some dried blood around bandage and skin. Vascular: +2 dorsalis pedis and radial pulses bilaterally. Laboratory data: Please see below. Microbiology: Urine cx from 07/29: showed no growth Imaging: CT scan of head w/o contrast yesterday 08/02: 1. 1.9 cm chronic subdural hematoma with rebleeding over the left cerebral hemisphere, unchanged in size compared to the previous study. 2. 9 mm subacute subdural hematoma over the right cerebral hemisphere, unchanged compared to the previous study. There is minimal midline shift to the right that is unchanged compared to the previous study. Assessment/Plan: This is a 71 yo M presenting status-post fall with head trauma. Had CT scan of the head findings consistent with R hemisphere subacute subdural hematoma with acute rebleeding of the L hemisphere and midline shift to the L, as well as CT findings of chronic L hemispheric subdural hematoma. Repeat CT Scan of the Head on 07/31 showed: (1) 1.9 cm chronic subdural hematoma with re-bleeding over the left cerebral hemisphere decreased in size compared to the previous study. (2) 9 mm subacute subdural hematoma over the right cerebral hemisphere unchanged in size compared to the previous study. There is minimal midline shift to the right that is decreased compared to the previous study. Is now status-post 2 neurosurgery procedures: L Frontal Twistdrill with placement of pediatric small feeding tube and removal of placement of burrhole tubes and is post-operative day #3. Procedure was performed on 07/31/16. Post- operative day #5 after [place] Holes placement and insertion of port for drainage of bilateral chronic SDH. Also presented for metabolic encephalopathy 2/2 brain compression in the setting of acute subdural hematoma with midline shift on imaging treated with surgery and now with improved mentation. -Acute on chronic SDH status-post surgeries as noted above: Mental status has improved and patient is AAO X 3 when interviewed. Management per neurosurgery primary team. -Numbness in L hand 3rd, 4th, and 5th digits: no complaints today. -Scalp laceration: status-post surgery with cinthia holes placement and drainage port insertion at area of scalp laceration/trauma. Also status-post placement of L Frontal Twistdrill with placement of pediatric small feeding tube and removal of burrhole tubes: Management as per Neurosurgery. Will monitor clinically for signs of infection, erythema, drainage, bleeding. -HTN: Controlled and Stable. Continue carvedilol and trandolapril. -Hypernatremia: WNL today. Continue monitoring daily BMPs. -Hypokalemia: WNL. Supplementation as necessary. -BPH LUTS: Continue flomax. Urine cx showed no growth on 07/29/16. No urinary complaints today. UA unremarkable. Jeffers catheter was d/c'ed. -Dementia: continue aricept. -Anxiety: Uncontrolled. Patient feels very apprehensive. Patient not on Xanax TID PRN since after 2nd surgery. He seems to be quite anxious and repeatedly getting up out of bed and chair. Have consulted Psychiatry Dr. Ng who will see patient later today. Xanax may not be recommended as this is a drug listed in Beer's criteria. However, will await Psych's recommendation. -Development of Possible Tardive Dyskinesia: Ruled out. No abnormal or new findings on CT scan of head compared to prior. Per patient's daughter today, patient has had tongue movements prior to hospitalization after patient started drinking heavily recently. Have ordered CT Scan of the Head without Contrast and consulted Dr. Mendez of Neurology. Have not seen Neurology note of date. -Depression: continue sertraline 25 mg daily. -Hx of EtOH Use and withdrawal symptoms: Continue folic acid and thiamine. Not receiving: Xanax TID as needed for withdrawal symptoms since 2nd surgery. -Per Dr. Mendez's communication with Dr. Blackwood previously: Dr. Mendez sees patient in his office. Patient has baseline memory loss. In light of bleed , he is at risk for seizure and an EEG is recommended. Recommends aricept at 10 mg vs. 20 mg which patient did not tolerate. Have ordered EEG today. EEG pending--do not see report as of yet. PT/OT and PM&R have been consulted by physical therapy for patient to receive rehabilitation. PFS consult in place for d/c planning. client services account manager consult will be considered for patient due to patient lives alone and placement evaluation. Patient has early-onset dementia and is also a fall risk. DVT prophylaxis: TEDs and SCDs. As per neurosurgery recommendations. No pharmacologic prophylaxis due to bleeding risk, status-post surgery for subdural hematomas. Immunizations as per protocol. Disposition: pending discharge and rehab as per Neurosurgery. My preceptor for this patient encounter was Dr. Sanket Bee, and was physically present in the building during the encounter and was fully available. As needed, all aspects of the patient interview, examination, medical decision making process, and medical care plan development were reviewed and approved by the preceptor. Preceptor is aware and concurs with the plan as stated in the body of this note and will attest to such by his/her cosignature. Attending Note: I have independently examined this patient and all aspects of the exam and treatment decisions have been discussed with the resident. A member of the hospitalist staff will continue to follow this patient through discharge. VS,Fishbone, I+O VS, Fishbone, I+O Laboratory Tests 08/03/16 06:10 Red Blood Count 4.11 L, Mean Corpuscular Volume 92.7, Mean Corpuscular Hemoglobin 31.6, Mean Corpuscular Hemoglobin Concent 34.1, Red Cell Distribution Width 12.3, Calcium Level 8.4 L, Aspartate Amino Transf (AST/SGOT) 16, Alanine Aminotransferase (ALT/SGPT) 19, Alkaline Phosphatase 40 L, Total Bilirubin 0.5, Total Protein 5.9 L, Albumin 2.9 L Vital Signs Date Time Temp Pulse Resp B/P (MAP) Pulse Ox O2 Delivery O2 Flow Rate FiO2 08/03/16 09:11 67 120/61 08/03/16 06:00 98.6 18 94 Room Air 07/31/16 06:00 1.0 I&O- Last 24 Hours up to 6 AM 08/03/16 05:59 Intake Total 1080 ml Output Total 750 ml Balance 330 ml JOSE DEL REAL OGME-1 Aug 03, 2016 10:17 SANKET BEE DO Aug 03, 2016 15:30
--- NOTE | 2016-08-03 16:26 | EEG ---
DATE OF PROCEDURE: 08/02/2016 REFERRING PHYSICIAN: Dr. Joe Elam DIAGNOSIS: Seizure. EEG #: [id number] HISTORY: The patient is a 71-year-old man with a history of dementia, alcohol abuse and chronic bilateral subdural hematoma. This EEG was done to rule out epileptic potential and assess degree of encephalopathy. He is currently taking Zoloft, Flomax, thiamine, vitamin B12, Aricept, folic acid, oxazepam, etc. TECHNICAL DESCRIPTION: This digital EEG was recorded by 21 scalp, ear and two EKG electrodes and was reviewed in bipolar and referential montages following reformatting in 10-20 international electrode placement system. INTERPRETATION: The patient was noted to be in awake and drowsy states during this EEG. Resting awake background rhythm consisted of 7-8 Hz theta activity measuring 15-40 microvolts in amplitude. No sleep was achieved. Hyperventilation could not be performed. Photic stimulation remained unremarkable. EKG revealed normal sinus rhythm with left bundle branch block pattern due to wide QRS complexes. No focal, lateralizing or epileptiform abnormalities were seen. No clinical or electrographic seizures were recorded. CONCLUSION: This EEG in awake and drowsy states is mildly abnormal due to presence of mild generalized slowing consistent with nonspecific mild diffuse cerebral dysfunction such as seen in encephalopathy due to multiple potential causes. No epileptiform abnormalities were seen.
--- NOTE | 2016-08-03 22:45 | CR ---
DATE OF CONSULTATION: 08/03/2016 CHIEF COMPLAINT: He says that he is fine. SUBJECTIVE: He is 71 years old. He is recently . I have been asked to see him by the hospitalist, as well as neurosurgery. The patient has been agitated. The patient is interviewed. The chart is reviewed. Most of the history is obtained from the chart. The patient is unable to give me a history as he is mildly restless and irritable and has cognitive deficits. He has a history of dementia, possibly depression and anxiety, according to the chart, hypertension and benign prostatic hypertrophy (BPH) . He also has a history of misuse of alcohol. He lives on his own. He was living with his . She only a few weeks ago. He has used alcohol regularly for quite a while, not quite sure about the details. He fell at home, apparently someone found him. He was brought to the emergency room and had a head injury. He was found to have acute on chronic subdural hematoma and CT of the brain showed small vessel ischemic disease, chronic subdural hematoma, and then acute rebleeding over the left cerebral hemisphere, there was a subacute subdural hematoma over the right cerebral hemisphere as well. The patient has been seen by neurosurgery, Dr. Elam operated. This took place just a few days ago, today is the fourth and sixth postoperative days. He had surgical procedures with cinthia hole and placement of two drains, left and right parietal region, and a new drain inserted in the left frontal region. A couple of the drains have been removed in the last day or so. He has been noted to be agitated, thought to have delirium. Has been confused. Has been verbally upset and on one occasion had punched the bed. He has been seen by neurology, Dr. Mendez, who knows him from the outpatient clinic. There are concerns apparently regarding his use of alcohol and possibly withdrawing from it and he has been given Serax 10 mg every 8 hours to help with agitation, has received the Serax at least twice daily over the last couple of days. Early on was given lorazepam and intravenous haloperidol as he was quite agitated post surgically. I understand that there are plans to have him go for short term rehabilitation post surgery once he is less agitated. He says that he lives on his own and that he was not quite sure why he came here, suggested that it was for a routine to have his blood pressure checked. When informed that he had a fall, acknowledges it and then says that it was accidental. He was unable to give any details of how he got here. He did not that he had surgery and when pointed out that there was neurosurgery done, he suggests that perhaps it was because of "cancer." He is informed otherwise. He is unable to indicate how long he has been here or what treatments are being rendered. Says that he was "doing fine" until he is asked questions by various people here and then says gets upset, acknowledges feels restless at times, but suggests only when he is questioned. He then declined to answer any other questions, as he was mildly irritated and restless. Had been walking along the corridors with a sitter and had wanted to resume that. PAST PSYCHIATRIC HISTORY: I am not aware of the details but apparently has a history of anxiety and depression. He has had difficulties with alcohol and has been to emergency room secondary to that, but again I am not aware of the details as to whether he has had any rehabilitations or anything of that nature. MEDICAL HISTORY: Significant for dementia, hypertension. Apparently a hematoma in the past and now an acute couple of ones recently, after the fall. Has a history of hypertension. MEDICATIONS: Please see the list. These currently include: - hydrocodone for pain - Zofran for nausea - Senokot - carvedilol - vitamin B12 - thiamine - folic acid - Zoloft 25 mg daily - Flomax - Aricept 10 mg daily He has also been put on oxazepam 10 mg every 8 hours as needed for agitation. SOCIAL HISTORY: Was living with his until recently. She apparently , was ill. She only a few weeks ago. He refers to her as if she is still alive (please see the patient and family services (PFS) worker's note). Has a daughter. Apparently, the patient has been managing on his own. MENTAL STATUS EXAMINATION: He is in hospital clothes. He is tall, appears well nourished. Has bandages on his head. He is cooperative for a few minutes, then somewhat restless, and then tried to end the interview. He was mildly agitated. He was coherent, in terms of questions asked with a relatively broad affect, but some mild irritability. No evidence that he had any active thoughts of hurting himself or anyone else. He did not appear to be internally preoccupied. Currently, no fluctuation of consciousness seen. He had difficulties maintaining attention, somewhat. Hui, is deemed to be alert. He is oriented to place and person. He is able to tell me the date by looking at the board. I did not test him for any further cognition, but he displayed difficulties when he referred to his in the present tense and how he would return to live with her. Staff has noticed difficulties with his short term memory as well. His judgment is poor, as is insight. INVESTIGATIONS: IMAGING: CT scan of the brain done yesterday shows chronic subdural hematoma with rebleeding in the left cerebral hemisphere and one in the right cerebral hemisphere. ASSESSMENT: 1. Delirium. This is likely multifactorial. 2. Neurocognitive disorder (dementia) by history. This is most possibly vascular dementia. 3. Alcohol use disorder. 4. Consider alcohol withdrawal. 5. Status post subdural hematomas and their drainage. He has been irritable, agitated, restless, confused, pacing around the place. He has had periods when he has not been able to maintain attention. He has several risk factors for delirium, including dementia, his age, the bleeding, the surgery, the postsurgical period, including the recent drains, which will all have contributed to the confusion and irritation, possibly with some disinhibition as well. He drinks regularly and the possibility of withdrawal exacerbating the irritability and agitation is also considered. He does not know, at present, why he came to the hospital or why he had surgery. He refers to his as she is still alive, she recently. He has considerable cognitive deficits, including seemingly short term memory difficulties, his executive functioning has been impacted as well. RECOMMENDATIONS: 1. Serax (oxazepam) 10 mg by mouth three times a day for one days and then 10 mg by mouth twice a day for two days, then 10 mg daily for a day. This is in addition to the Serax being given when he is agitated. 2. Hold the Serax if the patient is sedated. The Serax and its taper may help with minimizing any alcohol withdrawal symptoms and therefore agitation as well. 3. Trazodone 25 mg by mouth at night as needed for insomnia for the next few nights if necessary. Optimize the rest of his care. Given his current state and cognitive deficits and his inability to indicate why he came to the hospital, the treatments rendered, he does not have the capacity to make decisions regarding his care at present. Thank you for the consult. If you have any questions, please call. The assessment took 30 minutes.
[2016-08-04] MEDS: ACETAMINOPHEN TAB 650MG DOSE (2X325MG) PO SCH ×5 (00:28→23:25)
[2016-08-04 06:57] VITALS: BP 117/66
[2016-08-04] MEDS ORDERED: OXAZEPAM 10 MG CAP PO PRN (08:15)
[2016-08-04] MEDS: SENOKOT S TAB PO SCH ×2 (09:02→20:40)
[2016-08-04] MEDS: DONEPEZIL 5 MG TAB PO SCH (09:02)
[2016-08-04] MEDS: TRANDOLAPRIL 1 MG TAB PO SCH (09:02)
[2016-08-04] MEDS: SERTRALINE HCL 25 MG TABLET PO SCH (09:03)
[2016-08-04] MEDS: OXAZEPAM 10 MG CAP PO SCH ×3 (09:03→20:39)
[2016-08-04] MEDS: CYANOCOBALAMIN 500 MCG TAB PO SCH (09:03)
[2016-08-04] MEDS: THIAMINE 100 MG TAB PO SCH (09:03)
[2016-08-04] MEDS: MULTIVITAMINS/MINERALS THERAP 1 TAB PO SCH (09:03)
[2016-08-04] MEDS: FOLIC ACID 1 MG TAB PO SCH (09:03)
[2016-08-04] MEDS: TAMSULOSIN 0.4 MG CAP PO SCH (09:04)
[2016-08-04] MEDS: CARVedilol 6.25 MG TAB PO SCH ×2 (09:04→20:40)
[2016-08-04 10:00] VITALS: BP 118/58
[2016-08-04 14:00] VITALS: BP_SYST 126; BP_SYST 138; BP_DIAS 61; BP_DIAS 68
--- NOTE | 2016-08-04 15:28 | IPNPDOC ---
Text Note Date of Service The patient was seen on 08/04/16. NOTE Subjective: Patient seen and examined at bedside status-post neurosurgery procedure: L Frontal Twistdrill with placement of pediatric small feeding tube and removal of previous burrhole tubes. Procedure was performed on 07/31/16. Is status-post after [place] Holes placement and insertion of port for drainage of bilateral chronic SDH. Patient ambulating in room and halls without difficulty. Patient states he's feeling good today and has no complaints. Denies fevers, chills, chest pain, SOB, nausea, vomiting, diarrhea, dysuria, blurred vision, denies weakness, runny nose, sore throat, cough. Denies headache. Denies abdominal pain. Denies numbness of his hands or feet or numbness/tingling anywhere. Denies pain anywhere else. Denies any urinary symptoms. Denies swelling. Denies anxiety and states this has improved. Nurse reports patient has short-term memory loss. Patient admits Dr. Ng saw him yesterday, however, does not recall what Dr. Ng spoke to him about yesterday. Objective: VSS: Please see below. General: Pleasant elderly male with no more tubes in Posterior Scalp or L frontal scalp. NAD. Cooperative. Oriented to person, place, and time. Normal mentation. HEENT: Head: normocephalic. Bandages and surgical sites present. Eyes: PERRL, sclera are nonicteric. Nose: No external lesions, Throat: no pharyngeal erythema or exudates, moist buccal mucosa. Psychiatric: Less anxious than yesterday. Still ambulating halls periodically. Speech intact. Seems to have short-term memory loss. Respiratory: clear to auscultation bilaterally with no wheezes, rales, or rhonchi. Neck: Supple Cardiovascular: regular rate and rhythm, with no murmurs, rubs or gallops. Abdomen: soft, nondistended, no hepatosplenomegaly appreciated. Bowel sounds present but hypoactive. No tenderness to palpation of abdomen. Genitourinary: no jeffers in place. Extremities: No swelling in either lower extremity bilaterally. Musculoskeletal: Normal ROM. Ambulating halls. Neurological: Answers questions appropriately. Moves all extremities. Ambulates with walker. Integumentary: Some bruising and abrasions noticeable in LUE. Postsurgical sites with sara in place without noticeable drainage or erythema with bandages in place. However, the sites had some dried blood around bandage and skin. Vascular: +2 dorsalis pedis and radial pulses bilaterally. Laboratory data: Please see below. Microbiology: Urine cx from 07/29: showed no growth Imaging: No new imaging. EEG Report from 08/03/16: INTERPRETATION: The patient was noted to be in awake and drowsy states during this EEG. Resting awake background rhythm consisted of 7-8 Hz theta activity measuring 15-40 microvolts in amplitude. No sleep was achieved. Hyperventilation could not be performed. Photic stimulation remained unremarkable. EKG revealed normal sinus rhythm with left bundle branch block pattern due to wide QRS complexes. No focal, lateralizing or epileptiform abnormalities were seen. No clinical or electrographic seizures were recorded. CONCLUSION: This EEG in awake and drowsy states is mildly abnormal due to presence of mild generalized slowing consistent with nonspecific mild diffuse cerebral dysfunction such as seen in encephalopathy due to multiple potential causes. No epileptiform abnormalities were seen. Assessment/Plan: This is a 71 yo M presenting status-post fall with head trauma. Had CT scan of the head findings consistent with R hemisphere subacute subdural hematoma with acute rebleeding of the L hemisphere and midline shift to the L, as well as CT findings of chronic L hemispheric subdural hematoma. Repeat CT Scan of the Head on 07/31 showed: (1) 1.9 cm chronic subdural hematoma with re-bleeding over the left cerebral hemisphere decreased in size compared to the previous study. (2) 9 mm subacute subdural hematoma over the right cerebral hemisphere unchanged in size compared to the previous study. There is minimal midline shift to the right that is decreased compared to the previous study. Is now status-post 2 neurosurgery procedures: L Frontal Twistdrill with placement of pediatric small feeding tube and removal of placement of burrhole tubes. Procedure was performed on 07/31/16. Is status-post [place]inth[place] Holes placement and insertion of port for drainage of bilateral chronic SDH. Also presented for metabolic encephalopathy 2/2 brain compression in the setting of acute subdural hematoma with midline shift on imaging treated with surgery and now with improved mentation. -Acute on chronic SDH status-post surgeries as noted above: Mental status has improved and patient is AAO X 3 when interviewed. Management per neurosurgery primary team. -Numbness in L hand 3rd, 4th, and 5th digits: no complaints today. -Scalp laceration: status-post surgery with cinthia holes placement and drainage port insertion at area of scalp laceration/trauma. Also status-post placement of L Frontal Twistdrill with placement of pediatric small feeding tube and removal of burrhole tubes: Management as per Neurosurgery. Will monitor clinically for signs of infection, erythema, drainage, bleeding. -HTN: Controlled and Stable. Continue carvedilol and trandolapril. -Hypernatremia: WNL today. Continue monitoring daily BMPs. -Hypokalemia: WNL. Supplementation as necessary. -BPH LUTS: Continue flomax. Urine cx showed no growth on 07/29/16. No urinary complaints today. UA unremarkable. Jeffers catheter was d/c'ed. -Dementia: continue aricept. -Anxiety: Dr. Ng saw patient yesterday. According to note, patient may have delirium that is multifactorial, has neurocognitive disorder by hx most likely due to vascular dementia, EtOH use disorder, possible EtOH withdrawal, has short term memory issues. Dr. Ng started patient on serax taper and PRN agitation. In addition, trazodone QHS for insomnia has been started. Dr. Ng states patient does not have decision making capacity. -Development of Possible Tardive Dyskinesia: Ruled out. No abnormal or new findings on CT scan of head compared to prior. Per patient's daughter today, patient has had tongue movements prior to hospitalization after patient started drinking heavily recently. Have ordered CT Scan of the Head without Contrast and consulted Dr. Mendez of Neurology. Have not seen Neurology note of date. -Depression: continue sertraline 25 mg daily. -Hx of EtOH Use and withdrawal symptoms: Continue folic acid and thiamine. Serax taper started. -Per Dr. Mendez's communication with Dr. Blackwood previously: Dr. Mendez sees patient in his office. Patient has baseline memory loss. In light of bleed , he is at risk for seizure and an EEG is recommended. Recommends aricept at 10 mg vs. 20 mg which patient did not tolerate. Have ordered EEG today. EEG was negative for seizure activity but abnormal results as reported above. In addition, patient is still seizure precautions. PT/OT and PM&R have been consulted by Neurosurgery for patient to receive rehabilitation. PFS/Sewer Maintenance Supervisor consult in place for d/c planning. Patient lives alone and needs placement evaluation. Patient has early-onset dementia and is also a fall risk. Now, as per Psychiatry Eval, patient does not have decision-making capacity. DVT prophylaxis: TEDs and SCDs. As per neurosurgery recommendations. No pharmacologic prophylaxis due to bleeding risk, status-post surgery for subdural hematomas. Immunizations as per protocol. Disposition: pending discharge and rehab as per Neurosurgery. My preceptor for this patient encounter was Dr. Kristin Major, and was physically present in the building during the encounter and was fully available. As needed , all aspects of the patient interview, examination, medical decision making process, and medical care plan development were reviewed and approved by the preceptor. Preceptor is aware and concurs with the plan as stated in the body of this note and will attest to such by his/her cosignature. VS,Fishbone, I+O VS, Fishbone, I+O Vital Signs Date Time Temp Pulse Resp B/P (MAP) Pulse Ox O2 Delivery O2 Flow Rate FiO2 08/04/16 14:00 97.4 63 18 138/68 (91) 97 Room Air 126/61 (82) 07/31/16 06:00 1.0 I&O- Last 24 Hours up to 6 AM 08/04/16 05:59 Intake Total 820 ml Output Total 0 ml Balance 820 ml JOSE DEL REAL OGME-1 Aug 04, 2016 15:28
[2016-08-04 16:00] VITALS: BP 138/68
[2016-08-04 18:00] VITALS: BP 113/56
[2016-08-04] MEDS: traZODone 25MG PER 1/2 TABLET PO PRN (20:50)
[2016-08-04 22:00] VITALS: BP_SYST 128; BP_DIAS 61; BP_DIAS 68
[2016-08-05 02:00] VITALS: BP 114/56
[2016-08-05] MEDS: ACETAMINOPHEN TAB 650MG DOSE (2X325MG) PO SCH ×3 (05:02→17:42)
[2016-08-05 06:00] VITALS: BP 108/63
[2016-08-05 06:25] LABS: MEAN CORPUSCULAR HEMOGLOBIN 31.7 pg (27.0-33.0); MEAN CORPUSCULAR HGB CONC 34.8 g/dl (32.0-36.5); MEAN CORPUSCULAR VOLUME 91.3 fl (80.0-96.0); RED CELL DISTRIBUTION WIDTH 12.3 % (11.5-14.5); WHITE BLOOD COUNT 5.4 K/mm3 (4.0-10.0)
[2016-08-05 06:46] LABS: ALBUMIN 3.1 GM/DL (3.2-5.2); ALBUMIN/GLOBULIN RATIO 0.94 (1.00-1.93); ALKALINE PHOSPHATASE 43 U/L (45-117); ALT/SGPT 35 U/L (12-78); ANION GAP 7 MEQ/L (8-16); AST/SGOT 26 U/L (15-37); BILIRUBIN,TOTAL 0.5 MG/DL (0.2-1.0); BLOOD UREA NITROGEN 10 MG/DL (7-18); CALCIUM LEVEL 8.2 MG/DL (8.8-10.2); CARBON DIOXIDE LEVEL 27 MEQ/L (21-32); CHLORIDE LEVEL 108 MEQ/L (98-107); CREATININE FOR GFR 0.66 MG/DL (0.70-1.30); GLOMERULAR FILTRATION RATE > 60.0 (>42); GLUCOSE, FASTING 90 MG/DL (83-110); POTASSIUM SERUM 3.7 MEQ/L (3.5-5.1); SODIUM LEVEL 142 MEQ/L (136-145); TOTAL PROTEIN 6.4 GM/DL (6.4-8.2)
[2016-08-05] MEDS: TRANDOLAPRIL 1 MG TAB PO SCH (09:00)
[2016-08-05] MEDS: OXAZEPAM 10 MG CAP PO SCH ×3 (09:00→21:15)
[2016-08-05] MEDS: CARVedilol 6.25 MG TAB PO SCH ×2 (09:00→21:16)
[2016-08-05 10:00] VITALS: BP 127/71
[2016-08-05] MEDS: FOLIC ACID 1 MG TAB PO SCH (10:03)
[2016-08-05] MEDS: DONEPEZIL 5 MG TAB PO SCH (10:03)
[2016-08-05] MEDS: CYANOCOBALAMIN 500 MCG TAB PO SCH (10:03)
[2016-08-05] MEDS: MULTIVITAMINS/MINERALS THERAP 1 TAB PO SCH (10:04)
[2016-08-05] MEDS: SERTRALINE HCL 25 MG TABLET PO SCH (10:04)
[2016-08-05] MEDS: SENOKOT S TAB PO SCH ×2 (10:04→21:15)
[2016-08-05] MEDS: TAMSULOSIN 0.4 MG CAP PO SCH (10:04)
[2016-08-05] MEDS: THIAMINE 100 MG TAB PO SCH (10:04)
[2016-08-05 14:00] VITALS: BP 124/66
[2016-08-05 18:00] VITALS: BP 115/50
[2016-08-05 21:16] VITALS: BP 134/64
[2016-08-05] MEDS: traZODone 25MG PER 1/2 TABLET PO PRN (22:01)
[2016-08-06] VITALS (7 sets, daily range): BP systolic 99–162; BP diastolic 50–95
[2016-08-06] MEDS: ACETAMINOPHEN TAB 650MG DOSE (2X325MG) PO SCH ×4 (05:06→18:22)
[2016-08-06 06:09] LABS: MEAN CORPUSCULAR HEMOGLOBIN 31.8 pg (27.0-33.0); MEAN CORPUSCULAR HGB CONC 34.6 g/dl (32.0-36.5); MEAN CORPUSCULAR VOLUME 91.9 fl (80.0-96.0); RED CELL DISTRIBUTION WIDTH 12.4 % (11.5-14.5); WHITE BLOOD COUNT 4.8 K/mm3 (4.0-10.0)
[2016-08-06 06:45] LABS: ALBUMIN 2.8 GM/DL (3.2-5.2); ALBUMIN/GLOBULIN RATIO 0.85 (1.00-1.93); ALKALINE PHOSPHATASE 43 U/L (45-117); ALT/SGPT 38 U/L (12-78); ANION GAP 5 MEQ/L (8-16); AST/SGOT 26 U/L (15-37); BILIRUBIN,TOTAL 0.5 MG/DL (0.2-1.0); BLOOD UREA NITROGEN 11 MG/DL (7-18); CALCIUM LEVEL 8.5 MG/DL (8.8-10.2); CARBON DIOXIDE LEVEL 28 MEQ/L (21-32); CHLORIDE LEVEL 108 MEQ/L (98-107); CREATININE FOR GFR 0.66 MG/DL (0.70-1.30); GLOMERULAR FILTRATION RATE > 60.0 (>42); GLUCOSE, FASTING 97 MG/DL (83-110); POTASSIUM SERUM 3.9 MEQ/L (3.5-5.1); SODIUM LEVEL 141 MEQ/L (136-145); TOTAL PROTEIN 6.1 GM/DL (6.4-8.2)
[2016-08-06] MEDS ORDERED: traZODone 50 MG TAB PO PRN (07:30)
[2016-08-06] MEDS: DONEPEZIL 5 MG TAB PO SCH (09:21)
[2016-08-06] MEDS: OXAZEPAM 10 MG CAP PO SCH ×2 (09:22→20:23)
[2016-08-06] MEDS: TAMSULOSIN 0.4 MG CAP PO SCH (09:22)
[2016-08-06] MEDS: FOLIC ACID 1 MG TAB PO SCH (09:22)
[2016-08-06] MEDS: CYANOCOBALAMIN 500 MCG TAB PO SCH (09:22)
[2016-08-06] MEDS: MULTIVITAMINS/MINERALS THERAP 1 TAB PO SCH (09:23)
[2016-08-06] MEDS: CARVedilol 6.25 MG TAB PO SCH ×2 (09:23→20:23)
[2016-08-06] MEDS: SENOKOT S TAB PO SCH ×2 (09:24→20:23)
[2016-08-06] MEDS: THIAMINE 100 MG TAB PO SCH (09:24)
[2016-08-06] MEDS: SERTRALINE HCL 25 MG TABLET PO SCH (09:24)
--- NOTE | 2016-08-06 13:02 | IPNPDOC ---
Date Seen The patient was seen on 08/06/16. Progress Note NEUROSURGERY ADMISSION DAY #10. POSTOPERATIVE DAY #9 and #7. PAIN CONTROL: Satisfactory with [place] 5/325mg PO q 4 hrs PRN for pain and Tylenol 650 mg PO q 6 hrs PRN for pain. SURGICAL PROCEDURE: 1.)[place] hole placement with insertion of 2 drains in right and left side parietal region for bilateral chronic subdural hematoma (SDH). 2.) Removal of 2 drains from the right and left side of skull and cinthia hole placement with insertion of 1 new drain in left frontal region. Over 24 hour period: Fall this morning after slipping on rolling tray stand while attempting to get out of bed. Per nursing he landed on his buttocks and no head injury. Consult to psych placed Saturday for assessment of mental status and mental capacity. Dr Ng saw patient. He increased the frequency of Serax for 1 day from BID to TIB and then continue BID with PRN for increased agitation. Trazodone 25 mg PO at HS PRN for insomnia. Regarding his mental status, he states he does not have the capacity to make decisions regarding his care at present. Per nurse, Short term rehab will accept patient once his agitation/delirium is managed. Short term rehab is currently being arranged. Waiting for acceptance. SUBJECTIVE: Mr. Brooks is a 71-year-old male who was admitted for an acute on chronic bilateral SDH on 07/27/16 . He states he feels better today. It appears he improves after Serax and taking his assisted walks around the floor. He was returning from a walk just before I spoke with him. He states he had been feeling dizzy for the past 3 weeks and today was the worst. He states the dizziness was worse this morning, but now he feels better. He thinks this may be due to his medications and would like them adjusted. Per nursing, he attempted to quickly get out of bed and slipped on the rolling tray stand and fell on his buttocks. He was able to get up and ambulate without difficulty after this incident. He has been eating and drinking well. He has been walking with assistance. He denies chills, night sweats, headache, weakness, paresthesias, fatigue, bladder or bowel incontinence, any leg pain or swelling, any nausea or vomiting. OBJECTIVE: CLINICAL STATUS: AVSS. NEUROLOGICAL STATUS: He is alert and oriented to person, place, date, month, and year. GCS = [id number] = 15. His speech is fluent. He is anxious. He protrudes his tongue on occasion multiple times consecutively during conversation. WOUND/INCISION: There are 3 dressings which are intact over the skull. There does not appear to be any increased drainage, any surrounding erythema, or increased pain at the site. CRANIAL NERVES: II through XII are intact. MOTOR: Strength is 5/5 bilaterally throughout. He is able to stand up without any difficulty. SENSORY: Intact to light touch in all 4 extremities. MEDICATION CHANGES OVER 24 HOURS: (Added) 08/04- Trazodone 25 mg PO at HS PRN for insomnia. This was D/C and Trazodone 12.5 mg PO at HS PRN for insomnia was added. (D/C) Trandolapril 2 mg PO daily LABORATORY DATA: WBC= 4.8, and stable since admission. Hemoglobin= 13.2 Sodium= 141 Potassium= 3.9 IMAGING: No new studies. ASSESSMENT: Improving. Acute on chronic bilateral subdural hematomas. This patient has no acute neurosurgical issues at this time. He is waiting to be accepted by short term rehabilitation which can take up to 3-5 days. My concern at this point is patient's safety as he overestimates his physical abilities which increases his risk for falls during this time until accepted by short term rehab. Short term rehabilitation has declined him previously do to psychiatric concerns. 1. Acute on chronic bilateral subdural hematomas: Drained. Improved. No acute neurosurgical issues at this time. 2. Underlying dementia: Dr Ng saw pt on Saturday. He had increased the Serax to TID for 1 day then cont BID dosing. Per nursing, the Serax appears to have significantly helped his agitation although he remains quite anxious. Nursing states he can't remember to ask for help and will attempt to get up quickly. I have concern regarding how to keep him safe and avoid falls until he is accepted by short term rehab. Nursing states this can take up to 3-5 days. His fall today was d/t slipping on rolling tray while attempting to get up to quickly. This safety concern is d/t his poor judgment and other psychiatric concerns. Will keep a sitter with him. Will discuss with psych for further recommendations regarding his safety in the presence of his current mental status. Spoke with Dr Ng. He recommended to continue with sitter and Haldol 0.5 mg PRN for increased agitation. Discussed transfer of care to psychiatry, but he states he does not require acute psych care. For symptoms of sundowning delirium, please call hospitalist. 3. DC planning: PFS has been contacted and working on discharge to short term rehab. Per nurse, Short term rehab will accept patient once agitation/delirium managed. 4. Wound care: DC sara over incision tomorrow. 5. Pain control: Cont [place] 5/325 mg PO q 4 hrs PRN and Tylenol 650 mg PO q 6 hrs PRN. 6. Deep venous thrombosis (DVT) prophylaxis: TEDs and sequential compression devices. 7. Diet: as tolerated, with supervision. 8. Activity: as tolerated with assistance due to his increased risk of falls and inability to understand his physical limitations. 9. Nausea prophylaxis: Cont Zofran 4mg PO q 8 hrs PRN. 10. Constipation prophylaxis: continue MOM and colace. Thank you for all consulting providers for your much appreciated help regarding care of Mr Brooks. Spoke with Dr Hoffman regarding recommendations for patient safety. Recommended to continue with sitter and consult psych if needed. Maya Burgos, OMEGA-C VS, I&O, 24H, [place] Vital Signs/I&O Vital Signs Date Time Temp Pulse Resp B/P (MAP) Pulse Ox O2 Delivery O2 Flow Rate FiO2 08/06/16 09:23 72 125/68 08/06/16 06:32 98.5 18 97 Room Air 07/31/16 06:00 1.0 I&O- Last 24 Hours up to 6 AM 08/06/16 06:00 Intake Total 1440 ml Output Total 500 ml Balance 940 ml Laboratory Data 24H LABS Laboratory Tests 2 08/06/16 05:40: Anion Gap 5L, Glomerular Filtration Rate > 60.0, Blood Urea Nitrogen 11, Creatinine 0.66L, Sodium Level 141, Potassium Level 3.9, Chloride Level 108H, Carbon Dioxide Level 28, Calcium Level 8.5L, Aspartate Amino Transf (AST/SGOT) 26, Alanine Aminotransferase (ALT/SGPT) 38, Alkaline Phosphatase 43L, Total Bilirubin 0.5, Total Protein 6.1L, Albumin 2.8L, Albumin/Globulin Ratio 0.85L CBC/BMP Laboratory Tests 08/06/16 05:40 Red Blood Count 4.15 L, Mean Corpuscular Volume 91.9, Mean Corpuscular Hemoglobin 31.8, Mean Corpuscular Hemoglobin Concent 34.6, Red Cell Distribution Width 12.4, Calcium Level 8.5 L, Aspartate Amino Transf (AST/SGOT) 26, Alanine Aminotransferase (ALT/SGPT) 38, Alkaline Phosphatase 43 L, Total Bilirubin 0.5, Total Protein 6.1 L, Albumin 2.8 L Microbiology Microbiology 07/29/16 Urine Culture - Final, Complete 07/27/16 Urine Culture - Final, Complete Staphylococcus Aureus Staphylococcus Epidermidis YEIMY BURGOS PA-C Aug 06, 2016 13:02
--- NOTE | 2016-08-06 22:04 | IPNPDOC ---
Text Note Date of Service The patient was seen on 08/06/16. NOTE Subjective: Patient seen and examined at bedside status-post neurosurgery procedure: L Frontal Twistdrill with placement of pediatric small feeding tube and removal of previous burrhole tubes. Procedure was performed on 07/31/16. Is status-post [place] Holes placement and insertion of port for drainage of bilateral chronic SDH. Patient ambulating in room and halls without difficulty. C/o dizziness. Denies fevers, chills, chest pain, SOB, nausea, vomiting, diarrhea, dysuria, blurred vision, denies weakness, runny nose, sore throat, cough. Denies headache. Denies abdominal pain. Denies numbness of his hands or feet or numbness/tingling anywhere. Denies pain anywhere else. Denies any urinary symptoms, bowel/bladder incontinence. Denies swelling. Nurse reports patient fell early this AM ~6 AM. It was a witnessed fall and patient did not hit his head. He fell on his buttock in the form of a "home run " slide. He does report having some soreness in the area. Objective: VSS: Please see below. General: Pleasant elderly male with no more tubes in Posterior Scalp or L frontal scalp. NAD. Cooperative. Oriented to person, place, and time. Normal mentation but forgetful with short-term memory loss. HEENT: Head: normocephalic. Bandages and surgical sites present with sara in place. Eyes: PERRL, sclera are nonicteric. Nose: No external lesions, Throat: no pharyngeal erythema or exudates, moist buccal mucosa. Psychiatric: Less anxious than yesterday. Still ambulating halls periodically. Speech intact. Seems to have short-term memory loss. Respiratory: clear to auscultation bilaterally with no wheezes, rales, or rhonchi. Neck: Supple Cardiovascular: regular rate and rhythm, with no murmurs, rubs or gallops. Abdomen: soft, nondistended, no hepatosplenomegaly appreciated. Bowel sounds present but hypoactive. No tenderness to palpation of abdomen. Genitourinary: no jeffers in place. Extremities: No swelling in either lower extremity bilaterally. Musculoskeletal: Normal ROM. Ambulating halls. Neurological: Answers questions appropriately. Moves all extremities. Ambulates without walker now. Integumentary: Some bruising and abrasions noticeable in both upper extremities. Postsurgical sites with sara in place without noticeable drainage or erythema with bandages in place. Vascular: +2 dorsalis pedis and radial pulses bilaterally. Laboratory data: Please see below. Microbiology: Urine cx from 07/29: showed no growth Imaging: No new imaging. Assessment/Plan: This is a 71 yo M presenting status-post fall with head trauma. Had CT scan of the head findings consistent with R hemisphere subacute subdural hematoma with acute rebleeding of the L hemisphere and midline shift to the L, as well as CT findings of chronic L hemispheric subdural hematoma. Repeat CT Scan of the Head on 07/31 showed: (1) 1.9 cm chronic subdural hematoma with re-bleeding over the left cerebral hemisphere decreased in size compared to the previous study. (2) 9 mm subacute subdural hematoma over the right cerebral hemisphere unchanged in size compared to the previous study. There is minimal midline shift to the right that is decreased compared to the previous study. Is now status-post 2 neurosurgery procedures: L Frontal Twistdrill with placement of pediatric small feeding tube and removal of placement of burrhole tubes. Procedure was performed on 07/31/16. Is status-post [place] Holes placement and insertion of port for drainage of bilateral chronic SDH. Will monitor clinically for signs of infection, erythema, drainage, bleeding. -Also presented for metabolic encephalopathy 2/2 brain compression in the setting of acute subdural hematoma with midline shift on imaging treated with surgery and now with improved mentation. -Acute on chronic SDH status-post surgeries as noted above: Mental status has improved and patient is AAO X 3 when interviewed. However, has short-term memory loss. Management per neurosurgery primary team. -HTN: BPs running soft this AM. Continue carvedilol. Have d/ce'd trandalopril and decreased dose of trazodone to 12.5 mg. -Hypernatremia: WNL today. Continue monitoring daily BMPs. -Hypokalemia: WNL. Supplementation as necessary. -BPH LUTS: Continue flomax. Urine cx showed no growth on 07/29/16. No urinary complaints today. UA unremarkable. [place] catheter was d/c'ed. -Dementia: continue aricept. -Anxiety: Dr. Ng started patient on serax taper and PRN agitation. Serax PRN discontinued. In addition, trazodone QHS for insomnia has been started. Dr. Ng states patient does not have decision making capacity. -Depression: continue sertraline 25 mg daily. -Hx of EtOH Use and withdrawal symptoms: Continue folic acid and thiamine. Serax taper started. Patient is placed on seizure precautions as per Dr. Mendez. PT/OT and PM&R have been consulted by Neurosurgery for patient to receive rehabilitation. PFS/Forensic Pathologist consult in place for d/c planning. Patient lives alone and needs placement evaluation. Patient has early-onset dementia and is also a fall risk. Now, as per Psychiatry Eval, patient does not have decision-making capacity. DVT prophylaxis: TEDs and SCDs. As per neurosurgery recommendations. No pharmacologic prophylaxis due to bleeding risk, status-post surgery for subdural hematomas. Immunizations as per protocol. Disposition: pending discharge and rehab as per Neurosurgery. My preceptor for this patient encounter was Dr. Kristin Major, and was physically present in the building during the encounter and was fully available. As needed , all aspects of the patient interview, examination, medical decision making process, and medical care plan development were reviewed and approved by the preceptor. Preceptor is aware and concurs with the plan as stated in the body of this note and will attest to such by his/her cosignature. VS,Fishbone, I+O VS, Fishbone, I+O Laboratory Tests 08/06/16 05:40 Red Blood Count 4.15 L, Mean Corpuscular Volume 91.9, Mean Corpuscular Hemoglobin 31.8, Mean Corpuscular Hemoglobin Concent 34.6, Red Cell Distribution Width 12.4, Calcium Level 8.5 L, Aspartate Amino Transf (AST/SGOT) 26, Alanine Aminotransferase (ALT/SGPT) 38, Alkaline Phosphatase 43 L, Total Bilirubin 0.5, Total Protein 6.1 L, Albumin 2.8 L Vital Signs Date Time Temp Pulse Resp B/P (MAP) Pulse Ox O2 Delivery O2 Flow Rate FiO2 08/06/16 20:23 60 140/67 08/06/16 14:00 97.2 17 95 Room Air 07/31/16 06:00 1.0 I&O- Last 24 Hours up to 6 AM 08/06/16 05:59 Intake Total 1440 ml Output Total 500 ml Balance 940 ml JOSE DEL REAL OGME-1 Aug 06, 2016 22:04
[2016-08-06] MEDS: NYSTATIN 100,000 UNITS/GM TOPICAL PWD 15 GM TOP SCH (22:52)
[2016-08-07] VITALS (8 sets, daily range): BP systolic 112–150; BP diastolic 58–82
[2016-08-07] MEDS: ACETAMINOPHEN TAB 650MG DOSE (2X325MG) PO SCH ×5 (00:07→23:00)
[2016-08-07 06:33] LABS: MEAN CORPUSCULAR HEMOGLOBIN 32.3 pg (27.0-33.0); MEAN CORPUSCULAR HGB CONC 34.7 g/dl (32.0-36.5); MEAN CORPUSCULAR VOLUME 93.2 fl (80.0-96.0); RED CELL DISTRIBUTION WIDTH 12.4 % (11.5-14.5); WHITE BLOOD COUNT 5.3 K/mm3 (4.0-10.0)
[2016-08-07 07:05] LABS: ALBUMIN 2.7 GM/DL (3.2-5.2); ALKALINE PHOSPHATASE 43 U/L (45-117); ALT/SGPT 35 U/L (12-78); ANION GAP 6 MEQ/L (8-16); AST/SGOT 18 U/L (15-37); BILIRUBIN,TOTAL 0.3 MG/DL (0.2-1.0); BLOOD UREA NITROGEN 10 MG/DL (7-18); CALCIUM LEVEL 8.1 MG/DL (8.8-10.2); CARBON DIOXIDE LEVEL 28 MEQ/L (21-32); CHLORIDE LEVEL 107 MEQ/L (98-107); CREATININE FOR GFR 0.78 MG/DL (0.70-1.30); GLOMERULAR FILTRATION RATE > 60.0 (>42); GLUCOSE, FASTING 106 MG/DL (83-110); POTASSIUM SERUM 3.6 MEQ/L (3.5-5.1); SODIUM LEVEL 141 MEQ/L (136-145); TOTAL PROTEIN 5.7 GM/DL (6.4-8.2)
[2016-08-07] MEDS: SENOKOT S TAB PO SCH ×2 (11:02→20:05)
[2016-08-07] MEDS: DONEPEZIL 5 MG TAB PO SCH (11:02)
[2016-08-07] MEDS: MULTIVITAMINS/MINERALS THERAP 1 TAB PO SCH (11:02)
[2016-08-07] MEDS: SERTRALINE HCL 25 MG TABLET PO SCH (11:02)
[2016-08-07] MEDS: CYANOCOBALAMIN 500 MCG TAB PO SCH (11:02)
[2016-08-07] MEDS: FOLIC ACID 1 MG TAB PO SCH (11:05)
[2016-08-07] MEDS: THIAMINE 100 MG TAB PO SCH (11:05)
[2016-08-07] MEDS: OXAZEPAM 10 MG CAP PO SCH (11:05)
[2016-08-07] MEDS: CARVedilol 6.25 MG TAB PO SCH ×2 (11:05→20:05)
[2016-08-07] MEDS: TAMSULOSIN 0.4 MG CAP PO SCH (11:05)
[2016-08-07] MEDS: NYSTATIN 100,000 UNITS/GM TOPICAL PWD 15 GM TOP SCH ×2 (11:06→20:06)
[2016-08-07] MEDS: OXAZEPAM 10 MG CAP PO PRN (17:16)
--- NOTE | 2016-08-07 22:01 | IPN ---
DATE: 08/07/2016 The patient has been less agitated overall and appears less irritable. He has received oxazepam (Serax) about an hour ago. He is still on schedule with oxazepam 10 mg daily. I understand from the nurse that he walks the halls quite regularly. He is cooperative. Currently, there is no agitation. No psychomotor retardation. He is not sure why he got here. Answers questions briefly. He does not appear internally preoccupied. He is oriented to self but not to time. Judgment and insight are compromised. ASSESSMENT: 1. Neurocognitive disorder (dementia). 2. Delirium. This is resolved, most likely at this stage, and his sensorium is clear. 3. Behavioral difficulties secondary to the dementia, the hematomas, the surgeries and the recovery continued, but are diminished. He is improved clinically. RECOMMENDATIONS: I suggest discontinue the scheduled Serax 10 mg daily. Consider Haldol 0.25 mg every 6 hours as needed for agitation, no more than 0.75 mg a day in the short term. Discontinue the Serax 10 mg as needed for agitation in the next day or so. Optimize current care. The patient will need supervision once he leaves the hospital. I am unclear at present if the plans are for him to go to post surgical. I contacted neurosurgery yesterday about my assessment of a few days ago, as well as recommendations. I spoke with Connie Burgos. LISA
[2016-08-08 02:00] VITALS: BP 118/58
[2016-08-08] MEDS: OXAZEPAM 10 MG CAP PO PRN (05:07)
[2016-08-08] MEDS: ACETAMINOPHEN TAB 650MG DOSE (2X325MG) PO SCH ×4 (05:07→23:57)
[2016-08-08 06:00] VITALS: BP 127/68
[2016-08-08 07:15] LABS: MEAN CORPUSCULAR HEMOGLOBIN 31.7 pg (27.0-33.0); MEAN CORPUSCULAR HGB CONC 33.8 g/dl (32.0-36.5); MEAN CORPUSCULAR VOLUME 93.8 fl (80.0-96.0); RED CELL DISTRIBUTION WIDTH 12.3 % (11.5-14.5); WHITE BLOOD COUNT 5.8 K/mm3 (4.0-10.0)
[2016-08-08 07:35] LABS: ALBUMIN 2.8 GM/DL (3.2-5.2); ALBUMIN/GLOBULIN RATIO 0.88 (1.00-1.93); ALKALINE PHOSPHATASE 44 U/L (45-117); ALT/SGPT 31 U/L (12-78); ANION GAP 4 MEQ/L (8-16); AST/SGOT 13 U/L (15-37); BILIRUBIN,TOTAL 0.4 MG/DL (0.2-1.0); BLOOD UREA NITROGEN 9 MG/DL (7-18); CALCIUM LEVEL 8.4 MG/DL (8.8-10.2); CARBON DIOXIDE LEVEL 31 MEQ/L (21-32); CHLORIDE LEVEL 107 MEQ/L (98-107); CREATININE FOR GFR 0.71 MG/DL (0.70-1.30); GLOMERULAR FILTRATION RATE > 60.0 (>42); GLUCOSE, FASTING 91 MG/DL (83-110); POTASSIUM SERUM 4.2 MEQ/L (3.5-5.1); SODIUM LEVEL 142 MEQ/L (136-145)
[2016-08-08] MEDS ORDERED: OXAZEPAM 10 MG CAP PO SCH (09:00)
[2016-08-08] MEDS: SERTRALINE HCL 25 MG TABLET PO SCH (09:14)
[2016-08-08] MEDS: CYANOCOBALAMIN 500 MCG TAB PO SCH (09:14)
[2016-08-08] MEDS: FOLIC ACID 1 MG TAB PO SCH (09:14)
[2016-08-08] MEDS: THIAMINE 100 MG TAB PO SCH (09:14)
[2016-08-08] MEDS: SENOKOT S TAB PO SCH ×2 (09:15→20:30)
[2016-08-08] MEDS: DONEPEZIL 5 MG TAB PO SCH (09:15)
[2016-08-08] MEDS: MULTIVITAMINS/MINERALS THERAP 1 TAB PO SCH (09:15)
[2016-08-08] MEDS: CARVedilol 6.25 MG TAB PO SCH ×2 (09:15→20:30)
[2016-08-08] MEDS: TAMSULOSIN 0.4 MG CAP PO SCH (09:16)
[2016-08-08] MEDS: NYSTATIN 100,000 UNITS/GM TOPICAL PWD 15 GM TOP SCH ×2 (09:16→20:31)
--- NOTE | 2016-08-08 09:50 | IPNPDOC ---
Date Seen The patient was seen on 08/07/16. Progress Note NEUROSURGERY ADMISSION DAY #11. POSTOPERATIVE DAY #10 and #8. PAIN CONTROL: Satisfactory with [place] 5/325mg PO q 4 hrs PRN for pain and Tylenol 650 mg PO q 6 hrs PRN for pain. SURGICAL PROCEDURE: 1.)[place] hole placement with insertion of 2 drains in right and left side parietal region for bilateral chronic subdural hematoma (SDH). 2.) Removal of 2 drains from the right and left side of skull and [place] hole placement with insertion of 1 new drain in left frontal region. Over 24 hour period: Per psych- Serax taper. He has been doing well with the taper. He has been otherwise doing well, with the exception of anxiousness to go home. Discussion with [facility]- he does not have a health care proxy. Short term rehab is currently being arranged. Waiting for acceptance. SUBJECTIVE: Mr. Brooks is a 71-year-old male who was admitted for an acute on chronic bilateral SDH on 07/27/16 . He tells me he is anxious to go home. No new concerns for today. He has been eating and drinking well. He has been walking with assistance. His dizziness has resolved. He denies chills, night sweats, headache, weakness, paresthesias, fatigue, bladder or bowel incontinence, any leg pain or swelling, any nausea or vomiting. OBJECTIVE: CLINICAL STATUS: AVSS. NEUROLOGICAL STATUS: He is alert and oriented to person, place, date, month, and year. GCS = [id number] = 15. His speech is fluent. He is anxious. He protrudes his tongue on occasion multiple times consecutively during conversation. WOUND/INCISION: Removed sara from incision today. Incisions appear to be healing well. There does not appear to be any increased drainage, any surrounding erythema, or increased pain at the site. CRANIAL NERVES: II through XII are intact. MOTOR: Strength is 5/5 bilaterally throughout. He is able to stand up without any difficulty. SENSORY: Intact to light touch in all 4 extremities. LABORATORY DATA: WBC= 5.3, and stable since admission. Hemoglobin= 12.9 Sodium= 141 Potassium= 3.6 IMAGING: No new studies. ASSESSMENT: Improving. Acute on chronic bilateral subdural hematomas. This patient has no acute neurosurgical issues at this time. He is waiting to be accepted by short term rehabilitation which can take up to 3-5 days or longer due to the process of obtaining Medicare. My concern at this point is patient's safety as he overestimates his physical abilities which increases his risk for falls during this time until accepted by short term rehab. 1. Acute on chronic bilateral subdural hematomas: Drained. Improved. No acute neurosurgical issues at this time. 2. Underlying dementia: plan per psych. For symptoms of sundowning delirium, please call hospitalist. 3. DC planning: [facility] has been contacted. Plan to discharge to short term rehab. 4. Wound care: [place] over incisions removed today. Incisions appear to be healing well. 5. Pain control: Cont [place] 5/325 mg PO q 4 hrs PRN and Tylenol 650 mg PO q 6 hrs PRN. 6. Deep venous thrombosis (DVT) prophylaxis: TEDs and sequential compression devices. 7. Diet: as tolerated, with supervision. 8. Activity: as tolerated with assistance due to his increased risk of falls and inability to understand his physical limitations. 9. Nausea prophylaxis: Cont Zofran 4mg PO q 8 hrs PRN. 10. Constipation prophylaxis: continue MOM and colace. Thank you for all consulting providers for your much appreciated help regarding care of Mr Brooks. Maya Burgos, RPA-C VS, I&O, 24H, [place] Vital Signs/I&O Vital Signs Date Time Temp Pulse Resp B/P (MAP) Pulse Ox O2 Delivery O2 Flow Rate FiO2 08/08/16 09:15 60 127/68 08/08/16 06:00 96.5 16 96 Room Air I&O- Last 24 Hours up to 6 AM 08/08/16 06:00 Intake Total 890 ml Output Total 1300 ml Balance -410 ml Laboratory Data 24H LABS Laboratory Tests 2 08/08/16 06:36: Anion Gap 4L, Glomerular Filtration Rate > 60.0, Blood Urea Nitrogen 9, Creatinine 0.71, Sodium Level 142, Potassium Level 4.2, Chloride Level 107, Carbon Dioxide Level 31, Calcium Level 8.4L, Aspartate Amino Transf (AST/SGOT) 13L, Alanine Aminotransferase (ALT/SGPT) 31, Alkaline Phosphatase 44L, Total Bilirubin 0.4, Total Protein 6.0L, Albumin 2.8L, Albumin/Globulin Ratio 0.88L CBC/BMP Laboratory Tests 08/08/16 06:36 Red Blood Count 4.23 L, Mean Corpuscular Volume 93.8, Mean Corpuscular Hemoglobin 31.7, Mean Corpuscular Hemoglobin Concent 33.8, Red Cell Distribution Width 12.3, Calcium Level 8.4 L, Aspartate Amino Transf (AST/SGOT) 13 L, Alanine Aminotransferase (ALT/SGPT) 31, Alkaline Phosphatase 44 L, Total Bilirubin 0.4, Total Protein 6.0 L, Albumin 2.8 L Microbiology Microbiology 07/29/16 Urine Culture - Final, Complete YEIMY BURGOS PA-C Aug 08, 2016 09:50
[2016-08-08 10:00] VITALS: BP 129/72
[2016-08-08 14:00] VITALS: BP 130/63
--- NOTE | 2016-08-08 14:24 | IPNPDOC ---
Subjective Date Seen The patient was seen on 08/08/16. Subjective Chief Complaint/HPI The patient is a 71-year-old male admitted with a reason for visit of Subdural Hematoma. Events since last encounter Did not sleep well last night , intermittently getting anxious and agitated and wanting to leave. Objective Physical Examination General Exam: Positive: Alert, Cooperative, No Acute Distress Eye Exam: Positive: PERRLA, Conjunctiva & lids normal, EOMI, Negative: Sclera icteric ENT Exam: Positive: Atraumatic, Mucous membr. moist/pink, Pharynx Normal Neck Exam: Positive: Supple, Negative: JVD, thyromegaly Chest Exam: Positive: Clear to auscultation, Normal air movement Heart Exam: Positive: Rate Normal, Regular Rhythm, Normal S1, Normal S2, Negative: Murmurs, Rubs Abdomen Exam: Positive: Normal bowel sounds, Soft, Negative: Tenderness, Hepatospenomegaly Extremity Exam: Positive: Normal pulses, Negative: Clubbing, Cyanosis, Edema Skin Exam: Positive: Nl turgor and temperature, Negative: Rash, Breakdown Assessment /Plan Problems (1) Subdural hematoma Status: Acute Problem Text: Admitted with acute on chronic bilateral SDH on 07/27/16 S/p [place] hole placement with insertion of 2 drains in right and left side parietal region for bilateral chronic subdural hematoma (SDH). Then Removal of 2 drains from the right and left side of skull and [place] hole placement with insertion of 1 new drain in left frontal region. Plan as per neurosurgery. (2) Dementia with behavioral disturbance Status: Chronic Problem Text: Anxiety and agitation wants to go home. seen by psych. will start haloperidal prn and continue trazodone at bedtime as per psychiatry (3) Alcoholism Status: Chronic Problem Text: History of alcohol abuse and alcohol intoxication . Patient currently finishing serax taper. will dc serax today. (4) BPH (benign prostatic hyperplasia) Problem Text: continue flomax. (5) Hypertension Status: Chronic Problem Text: will continue coreg however trandanopril has been stopped. Plan/VTE VTE Prophylaxis Ordered?: Yes (TEDS/SCD) VTE Exclusion Pharmacological: Active Bleeding Plan Diet: Make NPO Activity: Bedrest VS, I&O, 24H, Fishbone Vital Signs/I&O Vital Signs Date Time Temp Pulse Resp B/P (MAP) Pulse Ox O2 Delivery O2 Flow Rate FiO2 08/08/16 10:00 97.7 55 16 129/72 (91) 92 Room Air I&O- Last 24 Hours up to 6 AM 08/08/16 06:00 Intake Total 890 ml Output Total 1300 ml Balance -410 ml Laboratory Data 24H LABS Laboratory Tests 2 08/08/16 06:36: Anion Gap 4L, Glomerular Filtration Rate > 60.0, Blood Urea Nitrogen 9, Creatinine 0.71, Sodium Level 142, Potassium Level 4.2, Chloride Level 107, Carbon Dioxide Level 31, Calcium Level 8.4L, Aspartate Amino Transf (AST/SGOT) 13L, Alanine Aminotransferase (ALT/SGPT) 31, Alkaline Phosphatase 44L, Total Bilirubin 0.4, Total Protein 6.0L, Albumin 2.8L, Albumin/Globulin Ratio 0.88L CBC/BMP Laboratory Tests 08/08/16 06:36 Red Blood Count 4.23 L, Mean Corpuscular Volume 93.8, Mean Corpuscular Hemoglobin 31.7, Mean Corpuscular Hemoglobin Concent 33.8, Red Cell Distribution Width 12.3, Calcium Level 8.4 L, Aspartate Amino Transf (AST/SGOT) 13 L, Alanine Aminotransferase (ALT/SGPT) 31, Alkaline Phosphatase 44 L, Total Bilirubin 0.4, Total Protein 6.0 L, Albumin 2.8 L Microbiology Microbiology 07/29/16 Urine Culture - Final, Complete MOJGAN BUCKLEY MD Aug 08, 2016 14:24
[2016-08-08 18:00] VITALS: BP 140/86
[2016-08-08] MEDS: HALOPERIDOL 0.25MG PER 1/2 TABLET PO PRN (18:59)
[2016-08-08] MEDS: traZODone 50 MG TAB PO SCH (20:29)
[2016-08-08 22:00] VITALS: BP 122/62
[2016-08-09] VITALS (7 sets, daily range): BP systolic 109–138; BP diastolic 55–80
[2016-08-09] MEDS: ACETAMINOPHEN TAB 650MG DOSE (2X325MG) PO SCH ×3 (06:34→18:00)
[2016-08-09 07:29] LABS: MEAN CORPUSCULAR HEMOGLOBIN 31.4 pg (27.0-33.0); MEAN CORPUSCULAR HGB CONC 34.3 g/dl (32.0-36.5); MEAN CORPUSCULAR VOLUME 91.5 fl (80.0-96.0); RED CELL DISTRIBUTION WIDTH 12.3 % (11.5-14.5)
[2016-08-09 07:42] LABS: ALBUMIN 3.4 GM/DL (3.2-5.2); ALBUMIN/GLOBULIN RATIO 1.03 (1.00-1.93); ALKALINE PHOSPHATASE 56 U/L (45-117); ALT/SGPT 38 U/L (12-78); ANION GAP 5 MEQ/L (8-16); AST/SGOT 19 U/L (15-37); BILIRUBIN,TOTAL 0.5 MG/DL (0.2-1.0); BLOOD UREA NITROGEN 10 MG/DL (7-18); CALCIUM LEVEL 8.5 MG/DL (8.8-10.2); CARBON DIOXIDE LEVEL 28 MEQ/L (21-32); CHLORIDE LEVEL 104 MEQ/L (98-107); CREATININE FOR GFR 0.73 MG/DL (0.70-1.30); GLOMERULAR FILTRATION RATE > 60.0 (>42); GLUCOSE, FASTING 102 MG/DL (83-110); POTASSIUM SERUM 3.7 MEQ/L (3.5-5.1); SODIUM LEVEL 137 MEQ/L (136-145); TOTAL PROTEIN 6.7 GM/DL (6.4-8.2)
[2016-08-09] MEDS: FOLIC ACID 1 MG TAB PO SCH (09:38)
[2016-08-09] MEDS: SERTRALINE HCL 25 MG TABLET PO SCH (09:38)
[2016-08-09] MEDS: THIAMINE 100 MG TAB PO SCH (09:38)
[2016-08-09] MEDS: TAMSULOSIN 0.4 MG CAP PO SCH (09:38)
[2016-08-09] MEDS: CARVedilol 6.25 MG TAB PO SCH ×2 (09:39→21:42)
[2016-08-09] MEDS: SENOKOT S TAB PO SCH ×2 (09:39→21:41)
[2016-08-09] MEDS: MULTIVITAMINS/MINERALS THERAP 1 TAB PO SCH (09:39)
[2016-08-09] MEDS: DONEPEZIL 5 MG TAB PO SCH (09:39)
[2016-08-09] MEDS: NYSTATIN 100,000 UNITS/GM TOPICAL PWD 15 GM TOP SCH ×2 (09:40→21:42)
[2016-08-09] MEDS: CYANOCOBALAMIN 500 MCG TAB PO SCH (09:40)
[2016-08-09] MEDS: DOCUSATE SODIUM 100 MG CAP PO PRN (09:40)
--- NOTE | 2016-08-09 10:58 | IPNPDOC ---
Date Seen The patient was seen on 08/08/16. Progress Note NEUROSURGERY ADMISSION DAY #12. POSTOPERATIVE DAY #11 and #9. PAIN CONTROL: Satisfactory with [place] 5/325mg PO q 4 hrs PRN for pain and Tylenol 650 mg PO q 6 hrs PRN for pain. SURGICAL PROCEDURE: 1.)[place] hole placement with insertion of 2 drains in right and left side parietal region for bilateral chronic subdural hematoma (SDH). 2.) Removal of 2 drains from the right and left side of skull and [place] hole placement with insertion of 1 new drain in left frontal region. Over 24 hour period: Per psych- Serax taper. He has been doing well with the taper. He has been otherwise doing well, with the exception of anxiousness to go home. Short term rehab is currently being arranged. Waiting for acceptance. SUBJECTIVE: Mr. Brooks is a 71-year-old male who was admitted for an acute on chronic bilateral SDH on 07/27/16 . He tells me he is anxious to go home. No new concerns for today. His left frontal incision has opened up. He denies any pain associated with it. He has been eating and drinking well. He has been walking with assistance. His dizziness has resolved. He denies chills, night sweats, headache, weakness, paresthesias, fatigue, bladder or bowel incontinence, any leg pain or swelling, any nausea or vomiting. OBJECTIVE: CLINICAL STATUS: AVSS. NEUROLOGICAL STATUS: He is alert and oriented to person, place, date, month, and year. GCS = E4M6V5 = 15. His speech is fluent. He is anxious, but this is improved since yesterday. He protrudes his tongue on occasion multiple times consecutively during conversation. WOUND/INCISION: Incision over the left frontal has opened up. Cleaned incision with iodine and re-closed with sara. Covered with 4x4 dressing. Incisions over parietal regions appear to be healing well. There does not appear to be any increased drainage, any surrounding erythema, or increased pain at the site. CRANIAL NERVES: II through XII are intact. MOTOR: Strength is 5/5 bilaterally throughout. He is able to stand up without any difficulty. SENSORY: Intact to light touch in all 4 extremities. LABORATORY DATA: WBC= 5.8, and stable since admission. Hemoglobin= 13.4 Sodium= 142 Potassium= 4.2 IMAGING: No new studies. ASSESSMENT: Improving. Acute on chronic bilateral subdural hematomas. 1. Acute on chronic bilateral subdural hematomas: Drained. Improved. No acute neurosurgical issues at this time. 2. Underlying dementia: plan per psych. For symptoms of sundowning delirium, please call hospitalist. 3. DC planning: [facility] has been contacted. Plan to discharge to short term rehab. 4. Wound care: Re-closed left frontal incision with sara. Will continue to monitor this. Incisions over parietal regions appear to be healing well. 5. Pain control: Cont [place] 5/325 mg PO q 4 hrs PRN and Tylenol 650 mg PO q 6 hrs PRN. 6. Deep venous thrombosis (DVT) prophylaxis: TEDs and sequential compression devices. 7. Diet: as tolerated, with supervision. 8. Activity: as tolerated with assistance due to his increased risk of falls and inability to understand his physical limitations. 9. Nausea prophylaxis: Cont Zofran 4mg PO q 8 hrs PRN. 10. Constipation prophylaxis: continue MOM and colace. Thank you for all consulting providers for your much appreciated help regarding care of Mr Brooks. Maay Burgos, RPA-C VS, I&O, 24H, [place] Vital Signs/I&O Vital Signs Date Time Temp Pulse Resp B/P (MAP) Pulse Ox O2 Delivery O2 Flow Rate FiO2 08/09/16 10:00 97.3 57 16 120/58 (78) 97 Room Air I&O- Last 24 Hours up to 6 AM 08/09/16 06:00 Intake Total 960 ml Output Total 300 ml Balance 660 ml Laboratory Data 24H LABS Laboratory Tests 2 08/09/16 06:59: Anion Gap 5L, Glomerular Filtration Rate > 60.0, Blood Urea Nitrogen 10, Creatinine 0.73, Sodium Level 137, Potassium Level 3.7, Chloride Level 104, Carbon Dioxide Level 28, Calcium Level 8.5L, Aspartate Amino Transf (AST/SGOT) 19, Alanine Aminotransferase (ALT/SGPT) 38, Alkaline Phosphatase 56, Total Bilirubin 0.5, Total Protein 6.7, Albumin 3.4#, Albumin/Globulin Ratio 1.03 CBC/BMP Laboratory Tests 08/09/16 06:59 Red Blood Count 4.56, Mean Corpuscular Volume 91.5, Mean Corpuscular Hemoglobin 31.4, Mean Corpuscular Hemoglobin Concent 34.3, Red Cell Distribution Width 12.3 , Calcium Level 8.5 L, Aspartate Amino Transf (AST/SGOT) 19, Alanine Aminotransferase (ALT/SGPT) 38, Alkaline Phosphatase 56, Total Bilirubin 0.5, Total Protein 6.7, Albumin 3.4 YEIMY BROOKS PA-C Aug 09, 2016 10:58
[2016-08-09] MEDS: HALOPERIDOL 0.25MG PER 1/2 TABLET PO PRN ×2 (15:24→23:36)
--- NOTE | 2016-08-09 19:39 | IPNPDOC ---
Date Seen The patient was seen on 08/09/16. Progress Note NEUROSURGERY ADMISSION DAY #13. POSTOPERATIVE DAY #12 and #10. PAIN CONTROL: Satisfactory with [place] 5/325mg PO q 4 hrs PRN for pain and Tylenol 650 mg PO q 6 hrs PRN for pain. SURGICAL PROCEDURE: 1.)[place] hole placement with insertion of 2 drains in right and left side parietal region for bilateral chronic subdural hematoma (SDH). 2.) Removal of 2 drains from the right and left side of skull and [place] hole placement with insertion of 1 new drain in left frontal region. Over 24 hour period: Per psych- Serax taper. He has been doing well with the taper. He has been otherwise doing well, with the exception of anxiousness and irritability about staying in hospital. Short term rehab is currently being arranged. Waiting for acceptance. SUBJECTIVE: Mr. Brooks is a 71-year-old male who was admitted for an acute on chronic bilateral SDH on 07/27/16 . He states he feels he is at his baseline and would like to go home. He becomes irritable when telling me he doesn't understand why he is still in the hospital because he feels fine. He states he has been safe at home and hasn't had any issues previously (he does not remember the fall with head injury which brought him to ED). No new concerns for today. He has been eating and drinking well. He has been walking without difficulty, sitter walks with him. He denies chills, night sweats, headache, dizziness, weakness, paresthesias, fatigue, bladder or bowel incontinence, any leg pain or swelling, any nausea or vomiting. OBJECTIVE: CLINICAL STATUS: AVSS. NEUROLOGICAL STATUS: He is alert and oriented to person, place, date, month, and year. GCS = E4M6V5 = 15. His speech is fluent. He is anxious and more irritable to me than he was yesterday. He protrudes his tongue on occasion multiple times consecutively during conversation. WOUND/INCISION: Incision over the left frontal region closed with sara and covered with 4x4 dressing. Incisions over parietal regions appear to be healing well. There does not appear to be any increased drainage, any surrounding erythema, or increased pain at the incision sites. CRANIAL NERVES: II through XII are intact. MOTOR: Strength is 5/5 bilaterally throughout. He is able to stand up without any difficulty. SENSORY: Intact to light touch in all 4 extremities. LABORATORY DATA: WBC= 6.0, and stable since admission. Hemoglobin= 14.3 Sodium= 137 Potassium= 3.7 IMAGING: No new studies. ASSESSMENT: Improving. Acute on chronic bilateral subdural hematomas. 1. Acute on chronic bilateral subdural hematomas: Drained. Improved. No acute neurosurgical issues at this time. 2. Underlying dementia: plan per psych. For symptoms of sundowning delirium, please call hospitalist. 3. DC planning: PFS has been contacted. Plan to discharge to short term rehab. 4. Wound care: [place] placed 08/08/16 over re-opened incision left frontal region. Will plan to D/C sara in 6 days. Incisions over parietal regions appear to be healing well. 5. Pain control: Cont [place] 5/325 mg PO q 4 hrs PRN and Tylenol 650 mg PO q 6 hrs PRN. 6. Deep venous thrombosis (DVT) prophylaxis: TEDs and sequential compression devices. 7. Diet: as tolerated. 8. Activity: as tolerated with assistance/monitoring due to his increased risk of falls and inability to understand his physical limitations. 9. Nausea prophylaxis: Cont Zofran 4mg PO q 8 hrs PRN. 10. Constipation prophylaxis: continue MOM and colace. Thank you for all consulting providers for your much appreciated help regarding care of Mr Brooks. Maya Burgos, OMEGA-C VS, I&O, 24H, [place] Vital Signs/I&O Vital Signs Date Time Temp Pulse Resp B/P (MAP) Pulse Ox O2 Delivery O2 Flow Rate FiO2 08/09/16 14:00 97.7 57 16 133/61 (85) 97 Room Air I&O- Last 24 Hours up to 6 AM 08/09/16 06:00 Intake Total 960 ml Output Total 300 ml Balance 660 ml Laboratory Data 24H LABS Laboratory Tests 2 08/09/16 06:59: Anion Gap 5L, Glomerular Filtration Rate > 60.0, Blood Urea Nitrogen 10, Creatinine 0.73, Sodium Level 137, Potassium Level 3.7, Chloride Level 104, Carbon Dioxide Level 28, Calcium Level 8.5L, Aspartate Amino Transf (AST/SGOT) 19, Alanine Aminotransferase (ALT/SGPT) 38, Alkaline Phosphatase 56, Total Bilirubin 0.5, Total Protein 6.7, Albumin 3.4#, Albumin/Globulin Ratio 1.03 CBC/BMP Laboratory Tests 08/09/16 06:59 Red Blood Count 4.56, Mean Corpuscular Volume 91.5, Mean Corpuscular Hemoglobin 31.4, Mean Corpuscular Hemoglobin Concent 34.3, Red Cell Distribution Width 12.3 , Calcium Level 8.5 L, Aspartate Amino Transf (AST/SGOT) 19, Alanine Aminotransferase (ALT/SGPT) 38, Alkaline Phosphatase 56, Total Bilirubin 0.5, Total Protein 6.7, Albumin 3.4 # YEIMY BURGOS PA-C Aug 09, 2016 19:39
[2016-08-09] MEDS: traZODone 50 MG TAB PO SCH (21:39)
[2016-08-10] MEDS: ACETAMINOPHEN TAB 650MG DOSE (2X325MG) PO SCH ×5 (00:11→23:46)
[2016-08-10 02:00] VITALS: BP 131/61
[2016-08-10 06:00] VITALS: BP 119/66
[2016-08-10 06:05] LABS: MEAN CORPUSCULAR HEMOGLOBIN 31.4 pg (27.0-33.0); MEAN CORPUSCULAR HGB CONC 33.7 g/dl (32.0-36.5); MEAN CORPUSCULAR VOLUME 93.1 fl (80.0-96.0); RED CELL DISTRIBUTION WIDTH 12.4 % (11.5-14.5); WHITE BLOOD COUNT 6.9 K/mm3 (4.0-10.0)
[2016-08-10 06:21] LABS: ALBUMIN 3.6 GM/DL (3.2-5.2); ALBUMIN/GLOBULIN RATIO 1.06 (1.00-1.93); ALKALINE PHOSPHATASE 60 U/L (45-117); ALT/SGPT 35 U/L (12-78); ANION GAP 5 MEQ/L (8-16); AST/SGOT 21 U/L (15-37); BILIRUBIN,TOTAL 0.5 MG/DL (0.2-1.0); BLOOD UREA NITROGEN 11 MG/DL (7-18); CALCIUM LEVEL 8.6 MG/DL (8.8-10.2); CARBON DIOXIDE LEVEL 30 MEQ/L (21-32); CHLORIDE LEVEL 101 MEQ/L (98-107); CREATININE FOR GFR 0.78 MG/DL (0.70-1.30); GLOMERULAR FILTRATION RATE > 60.0 (>42); GLUCOSE, FASTING 109 MG/DL (83-110); POTASSIUM SERUM 3.6 MEQ/L (3.5-5.1); SODIUM LEVEL 136 MEQ/L (136-145)
[2016-08-10] MEDS: FOLIC ACID 1 MG TAB PO SCH (08:47)
[2016-08-10] MEDS: SENOKOT S TAB PO SCH ×2 (08:47→21:22)
[2016-08-10] MEDS: TAMSULOSIN 0.4 MG CAP PO SCH (08:48)
[2016-08-10] MEDS: DONEPEZIL 5 MG TAB PO SCH (08:48)
[2016-08-10] MEDS: CYANOCOBALAMIN 500 MCG TAB PO SCH (08:48)
[2016-08-10] MEDS: MULTIVITAMINS/MINERALS THERAP 1 TAB PO SCH (08:48)
[2016-08-10] MEDS: THIAMINE 100 MG TAB PO SCH (08:48)
[2016-08-10] MEDS: CARVedilol 6.25 MG TAB PO SCH ×2 (08:48→21:22)
[2016-08-10] MEDS: SERTRALINE HCL 25 MG TABLET PO SCH (08:48)
[2016-08-10] MEDS: NYSTATIN 100,000 UNITS/GM TOPICAL PWD 15 GM TOP SCH ×2 (08:49→21:23)
[2016-08-10 10:00] VITALS: BP 144/75
--- NOTE | 2016-08-10 11:07 | IPNPDOC ---
Subjective Date Seen The patient was seen on 08/10/16. Subjective Chief Complaint/HPI The patient is a 71-year-old male admitted with a reason for visit of Subdural Hematoma. Events since last encounter [place] this week , acute delirium seems to have resolved. Just intermittently getting anxious to go home. no fever or chills, no chest pain or SOB , no nausea or vomiting or diarrhea. Objective Physical Examination General Exam: Positive: Alert, Cooperative, No Acute Distress Eye Exam: Positive: PERRLA, Conjunctiva & lids normal, EOMI, Negative: Sclera icteric ENT Exam: Positive: Atraumatic, Mucous membr. moist/pink, Pharynx Normal Neck Exam: Positive: Supple, Negative: JVD, thyromegaly Chest Exam: Positive: Clear to auscultation, Normal air movement Heart Exam: Positive: Rate Normal, Regular Rhythm, Normal S1, Normal S2, Negative: Murmurs, Rubs Abdomen Exam: Positive: Normal bowel sounds, Soft, Negative: Tenderness, Hepatospenomegaly Extremity Exam: Positive: Normal pulses, Negative: Clubbing, Cyanosis, Edema Skin Exam: Positive: Nl turgor and temperature, Negative: Rash, Breakdown Assessment /Plan Problems (1) Subdural hematoma Status: Acute Problem Text: Admitted with acute on chronic bilateral SDH on 07/27/16 S/p [place] hole placement with insertion of 2 drains in right and left side parietal region for bilateral chronic subdural hematoma (SDH). Then Removal of 2 drains from the right and left side of skull and [place] hole placement with insertion of 1 new drain in left frontal region. Plan as per neurosurgery. (2) Acute delirium Status: Resolved Problem Text: Due to subdural hematomas, surgery Now sensorium clear. (3) Dementia with behavioral disturbance Status: Chronic Problem Text: Anxiety and agitation wants to go home. Better controlled now. on haloperidal prn and continue trazodone at bedtime as per psychiatry (4) Alcoholism Status: Chronic Problem Text: History of alcohol abuse and alcohol intoxication . finished serax taper. (5) BPH (benign prostatic hyperplasia) Problem Text: continue flomax. (6) Hypertension Status: Chronic Problem Text: will continue coreg however trandanopril has been stopped. Plan/VTE VTE Prophylaxis Ordered?: Yes (TEDS/SCD) VTE Exclusion Pharmacological: Active Bleeding Plan Diet: Make NPO Activity: Bedrest VS, I&O, 24H, Sandrine Vital Signs/I&O Vital Signs Date Time Temp Pulse Resp B/P (MAP) Pulse Ox O2 Delivery O2 Flow Rate FiO2 08/10/16 10:00 97.2 62 16 144/75 (98) 97 Room Air I&O- Last 24 Hours up to 6 AM 08/10/16 06:00 Intake Total 1560 ml Output Total 0 ml Balance 1560 ml Laboratory Data 24H LABS Laboratory Tests 2 08/10/16 05:47: Anion Gap 5L, Glomerular Filtration Rate > 60.0, Blood Urea Nitrogen 11, Creatinine 0.78, Sodium Level 136, Potassium Level 3.6, Chloride Level 101, Carbon Dioxide Level 30, Calcium Level 8.6L, Aspartate Amino Transf (AST/SGOT) 21, Alanine Aminotransferase (ALT/SGPT) 35, Alkaline Phosphatase 60, Total Bilirubin 0.5, Total Protein 7.0, Albumin 3.6, Albumin/Globulin Ratio 1.06 CBC/BMP Laboratory Tests 08/10/16 05:47 Red Blood Count 4.53, Mean Corpuscular Volume 93.1, Mean Corpuscular Hemoglobin 31.4, Mean Corpuscular Hemoglobin Concent 33.7, Red Cell Distribution Width 12.4 , Calcium Level 8.6 L, Aspartate Amino Transf (AST/SGOT) 21, Alanine Aminotransferase (ALT/SGPT) 35, Alkaline Phosphatase 60, Total Bilirubin 0.5, Total Protein 7.0, Albumin 3.6 MOJGAN BUCKLEY MD Aug 10, 2016 11:07
--- NOTE | 2016-08-10 11:42 | CR ---
DATE OF CONSULTATION: 08/09/2016 REASON FOR CONSULTATION: I have been asked to see this patient to make and assessment regarding his current condition and comment on his capacity to make decisions regarding his care, as well as healthcare proxy and power of claims attorney. He is seen in his room, and his daughter was there. I saw the patient alone, but I asked his permission to speak with the daughter, Soraya, prior to seeing him. She indicated that the eventual plans were for him, as far as she was aware, to go home, but she is unsure of the rehabilitation that was being mentioned in the prior notes by neurosurgery. The patient says he has been anxious, waiting for the interview. He is aware of the purpose of the interview, and says has been nervous about that all afternoon. In fact, the nurse looking after him had informed me about his anxiety about this early on. He is clinically improved, is less anxious overall, but was anxious about the interview. He indicated he had fallen, says does not remember it, and that it is possible his daughter may have discovered him, and he was brought to the hospital. Does not remember that, but remembers being here the last few days, vaguely remembers seeing me a few days ago, also suggests that he is clinically much improved and is eager to point out that he "is a different person" to the one I had seen. Says caters for himself at home and that he keeps busy around the house, as well as taking care of the grounds, and his boats, his Jet[employer]ki. He says he lives in [facility]. Also indicates his brother lives next door, and that he generally gets along with him, and brother has been assisting him to some extent while the patient has been here. The patient says his daughter is in close contact with him as well, he says she lives in [facility], and that his son comes by every other week or so. He lives in [place]. The patient says he has been managing for food on his own, particularly after his a few weeks ago, says prepares some meals. Says had been driving, does not plan to drive for a while, says will need time for recovery. Says is willing to accept any assistance that he may be offered upon leaving the hospital, and is prepared to go to any rehab that the neurosurgeons may suggest. Also acknowledges has been drinking excessively and that his drinking may have led his falling. Says it has been quite a while since he has had any alcohol, denies any current cravings, but also suggests that there are times he occasionally thinks about it. Says will consider attending Alcoholics Anonymous (AA). Says the longest he has remained without alcohol has been a few weeks; this was within the last couple of years, but he is not quite sure when. Also suggests his had been concerned about his drinking. 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 Acknowledges has had increasing limitations over the last year or so, but that they have not affected him in a major manner. Also acknowledges has had occasional difficulties with his short-term memory. Says if it came to it, and he was unable to make decisions, would want his daughter, as well as his son, making decisions regarding his health care. Also suggests would have his daughter take care of addressing his affairs, as power of claims attorney, if it was required. MENTAL STATUS EXAMINATION: He is neat. He is cooperative. He is coherent. No agitation. No psychomotor retardation. Appears mildly anxious at times, and became, at one point, tearful and more anxious when difficulties with short-term memory, on recall of three objects, was displayed. He denies any suicidal thoughts or intents. There is no evidence of psychosis. His attention and concentration are good essentially, short-term memory is fair, was able to recall three out of three objects but after several attempts. Intellect is average. Judgment is fair to good. Insight is fair. ASSESSMENT: 1. Neurocognitive disorder, mild to moderate (dementia). 2. Alcohol use disorder. He is clinically improved, is considerably less anxious overall, though anxious about the interview, when he was informed about it earlier today, as well as its purpose, the evaluation for capacity to make some decisions. He feels he has improved, and is able to indicate why he was admitted to the hospital, the surgery, its purpose and his recovery. He is also willing to accept assistance when he goes home. He does have some short-term memory deficits, and gets anxious when they are displayed. Given the above, he does display the capacity to make decisions regarding his healthcare at present. He also displays the capacity to nominate his healthcare proxy or proxies, as well as power of claims attorney. RECOMMENDATIONS: 1. Continue current care, optimize it. 2. Discontinue Haldol in the next day or two. 3. Encourage refrain from, and abstinence from alcohol. Would suggest he consider attending AA at the very least, and would also suggest considering outpatient alcohol treatment. 4. If he goes home, I would suggest ensuring adequate assistance. I spent about 30 minutes with the patient. If there are any questions, please call. I am signing off at present.
[2016-08-10 14:00] VITALS: BP 129/62
[2016-08-10 18:00] VITALS: BP 134/77
[2016-08-10] MEDS: traZODone 50 MG TAB PO SCH (21:22)
[2016-08-10 22:00] VITALS: BP 134/60
--- NOTE | 2016-08-10 22:02 | IPNPDOC ---
Date Seen The patient was seen on 08/10/16. Progress Note NEUROSURGERY ADMISSION DAY #14. POSTOPERATIVE DAY #13 and #11. PAIN CONTROL: Satisfactory with [place] 5/325mg PO q 4 hrs PRN for pain and Tylenol 650 mg PO q 6 hrs PRN for pain. SURGICAL PROCEDURE: 1.)[place] hole placement with insertion of 2 drains in right and left side parietal region for bilateral chronic subdural hematoma (SDH). 2.) Removal of 2 drains from the right and left side of skull and cinthia hole placement with insertion of 1 new drain in left frontal region. Over 24 hour period: Per nursing- major improvements in his mood today. Family is to arrange 24-hr supervision at home, with help of PFS. Once this is arranged, he will be discharged to home. SUBJECTIVE: Mr. Brooks is a 71-year-old male who was admitted for an acute on chronic bilateral SDH on 07/27/16. He is excited about going home. Appears to be in good spirits today. No new concerns for today. He has been eating and drinking well. He is walking well, accompanied by sitter. He denies chills, night sweats, headache, dizziness, weakness, paresthesias, fatigue, bladder or bowel incontinence, any leg pain or swelling, any nausea or vomiting. OBJECTIVE: CLINICAL STATUS: AVSS. NEUROLOGICAL STATUS: He is alert and oriented to person, place, date, month, and year. GCS = [id number] = 15. His speech is fluent. Mood is improved, in good spirits today. No agitation. He protrudes his tongue on occasion multiple times consecutively during conversation. WOUND/INCISION: Incision over the left frontal region closed with sara and covered with 4x4 dressing-- healing. Incisions over parietal regions appear to be healing well. There does not appear to be any increased drainage, any surrounding erythema, or increased pain at the incision sites. CRANIAL NERVES: II through XII are intact. MOTOR: Strength is 5/5 bilaterally throughout. He is able to stand up without any difficulty. SENSORY: Intact to light touch in all 4 extremities. LABORATORY DATA: WBC= 6.9 Hemoglobin= 14.2 Sodium= 136 Potassium= 3.6 IMAGING: No new studies. ASSESSMENT: Improving. Acute on chronic bilateral subdural hematomas. 1. Acute on chronic bilateral subdural hematomas: Drained. Improved. No acute neurosurgical issues at this time. 2. Underlying dementia: plan per psych. For symptoms of sundowning delirium, please call hospitalist. 3. DC planning: PFS has been contacted. Plan to discharge to home with 24-hr supervision. Once this arranged, he will be discharged. 4. Wound care: [place] placed 08/08/16 over re-opened incision left frontal region. Will plan to D/C sara in 5 days. Incisions over parietal regions appear to be healing well. 5. Pain control: Cont [place] 5/325 mg PO q 4 hrs PRN and Tylenol 650 mg PO q 6 hrs PRN. He hasn't been asking for pain med. No complaints of pain. Mild soreness over L frontal region incision. 6. Deep venous thrombosis (DVT) prophylaxis: TEDs and sequential compression devices. 7. Diet: as tolerated. 8. Activity: as tolerated with assistance/monitoring due to his increased risk of falls and inability to understand his physical limitations. 9. Nausea prophylaxis: Cont Zofran 4mg PO q 8 hrs PRN. 10. Constipation prophylaxis: continue MOM and colace. Thank you for all consulting providers for your much appreciated help regarding care of Mr Brooks. Maya Burgos, RPA-C VS, I&O, 24H, Fishbone Vital Signs/I&O Vital Signs Date Time Temp Pulse Resp B/P (MAP) Pulse Ox O2 Delivery O2 Flow Rate FiO2 08/10/16 21:22 60 137/60 08/10/16 18:00 97.6 16 97 Room Air I&O- Last 24 Hours up to 6 AM 08/10/16 06:00 Intake Total 1560 ml Output Total 0 ml Balance 1560 ml Laboratory Data 24H LABS Laboratory Tests 2 08/10/16 05:47: Anion Gap 5L, Glomerular Filtration Rate > 60.0, Blood Urea Nitrogen 11, Creatinine 0.78, Sodium Level 136, Potassium Level 3.6, Chloride Level 101, Carbon Dioxide Level 30, Calcium Level 8.6L, Aspartate Amino Transf (AST/SGOT) 21, Alanine Aminotransferase (ALT/SGPT) 35, Alkaline Phosphatase 60, Total Bilirubin 0.5, Total Protein 7.0, Albumin 3.6, Albumin/Globulin Ratio 1.06 08/10/16 14:15: Bedside Glucose (Misc Panel) 137H CBC/BMP Laboratory Tests 08/10/16 05:47 Red Blood Count 4.53, Mean Corpuscular Volume 93.1, Mean Corpuscular Hemoglobin 31.4, Mean Corpuscular Hemoglobin Concent 33.7, Red Cell Distribution Width 12.4 , Calcium Level 8.6 L, Aspartate Amino Transf (AST/SGOT) 21, Alanine Aminotransferase (ALT/SGPT) 35, Alkaline Phosphatase 60, Total Bilirubin 0.5, Total Protein 7.0, Albumin 3.6 YEIMY BURGOS PA-C Aug 10, 2016 22:02
[2016-08-11] VITALS (7 sets, daily range): BP systolic 105–128; BP diastolic 56–68
[2016-08-11] MEDS: ACETAMINOPHEN TAB 650MG DOSE (2X325MG) PO SCH ×3 (05:13→17:42)
[2016-08-11] MEDS: HALOPERIDOL 0.25MG PER 1/2 TABLET PO PRN (05:30)
[2016-08-11 05:43] LABS: MEAN CORPUSCULAR HEMOGLOBIN 32.4 pg (27.0-33.0); MEAN CORPUSCULAR HGB CONC 34.8 g/dl (32.0-36.5); MEAN CORPUSCULAR VOLUME 93.1 fl (80.0-96.0); RED CELL DISTRIBUTION WIDTH 12.4 % (11.5-14.5); WHITE BLOOD COUNT 5.5 K/mm3 (4.0-10.0)
[2016-08-11 06:00] LABS: ALBUMIN 3.2 GM/DL (3.2-5.2); ALBUMIN/GLOBULIN RATIO 0.97 (1.00-1.93); ALKALINE PHOSPHATASE 59 U/L (45-117); ALT/SGPT 32 U/L (12-78); ANION GAP 2 MEQ/L (8-16); AST/SGOT 19 U/L (15-37); BILIRUBIN,TOTAL 0.5 MG/DL (0.2-1.0); BLOOD UREA NITROGEN 11 MG/DL (7-18); CALCIUM LEVEL 8.5 MG/DL (8.8-10.2); CARBON DIOXIDE LEVEL 33 MEQ/L (21-32); CHLORIDE LEVEL 104 MEQ/L (98-107); CREATININE FOR GFR 0.76 MG/DL (0.70-1.30); GLOMERULAR FILTRATION RATE > 60.0 (>42); GLUCOSE, FASTING 99 MG/DL (83-110); POTASSIUM SERUM 3.5 MEQ/L (3.5-5.1); SODIUM LEVEL 139 MEQ/L (136-145); TOTAL PROTEIN 6.5 GM/DL (6.4-8.2)
[2016-08-11] MEDS: SENOKOT S TAB PO SCH ×2 (10:46→21:42)
[2016-08-11] MEDS: DONEPEZIL 5 MG TAB PO SCH (10:46)
[2016-08-11] MEDS: FOLIC ACID 1 MG TAB PO SCH (10:46)
[2016-08-11] MEDS: MULTIVITAMINS/MINERALS THERAP 1 TAB PO SCH (10:46)
[2016-08-11] MEDS: THIAMINE 100 MG TAB PO SCH (10:46)
[2016-08-11] MEDS: SERTRALINE HCL 25 MG TABLET PO SCH (10:47)
[2016-08-11] MEDS: CARVedilol 6.25 MG TAB PO SCH ×2 (10:47→21:00)
[2016-08-11] MEDS: CYANOCOBALAMIN 500 MCG TAB PO SCH (10:47)
[2016-08-11] MEDS: TAMSULOSIN 0.4 MG CAP PO SCH (10:47)
[2016-08-11] MEDS: NYSTATIN 100,000 UNITS/GM TOPICAL PWD 15 GM TOP SCH ×2 (10:48→21:42)
[2016-08-11] MEDS: HALOPERIDOL 0.5 MG TAB PO PRN (13:23)
[2016-08-11] MEDS: OXAZEPAM 10 MG CAP PO PRN (16:08)
[2016-08-11] MEDS: traZODone 50 MG TAB PO SCH (21:42)
[2016-08-12] VITALS (7 sets, daily range): BP systolic 112–137; BP diastolic 57–76
[2016-08-12] MEDS: ACETAMINOPHEN TAB 650MG DOSE (2X325MG) PO SCH ×4 (00:42→17:53)
[2016-08-12 05:59] LABS: MEAN CORPUSCULAR HEMOGLOBIN 31.6 pg (27.0-33.0); MEAN CORPUSCULAR HGB CONC 32.9 g/dl (32.0-36.5); MEAN CORPUSCULAR VOLUME 96.2 fl (80.0-96.0); RED CELL DISTRIBUTION WIDTH 12.3 % (11.5-14.5)
[2016-08-12 06:37] LABS: ALBUMIN 2.9 GM/DL (3.2-5.2); ALBUMIN/GLOBULIN RATIO 0.91 (1.00-1.93); ALKALINE PHOSPHATASE 52 U/L (45-117); ALT/SGPT 25 U/L (12-78); ANION GAP 4 MEQ/L (8-16); AST/SGOT 14 U/L (15-37); BILIRUBIN,TOTAL 0.4 MG/DL (0.2-1.0); BLOOD UREA NITROGEN 11 MG/DL (7-18); CARBON DIOXIDE LEVEL 31 MEQ/L (21-32); CHLORIDE LEVEL 105 MEQ/L (98-107); CREATININE FOR GFR 0.83 MG/DL (0.70-1.30); GLOMERULAR FILTRATION RATE > 60.0 (>42); GLUCOSE, FASTING 86 MG/DL (83-110); POTASSIUM SERUM 3.8 MEQ/L (3.5-5.1); SODIUM LEVEL 140 MEQ/L (136-145); TOTAL PROTEIN 6.1 GM/DL (6.4-8.2)
[2016-08-12] MEDS: THIAMINE 100 MG TAB PO SCH (08:59)
[2016-08-12] MEDS: CYANOCOBALAMIN 500 MCG TAB PO SCH (08:59)
[2016-08-12] MEDS: MULTIVITAMINS/MINERALS THERAP 1 TAB PO SCH (08:59)
[2016-08-12] MEDS: SERTRALINE HCL 25 MG TABLET PO SCH (08:59)
[2016-08-12] MEDS: SENOKOT S TAB PO SCH ×2 (08:59→20:39)
[2016-08-12] MEDS: DONEPEZIL 5 MG TAB PO SCH (08:59)
[2016-08-12] MEDS: HALOPERIDOL 0.5 MG TAB PO PRN ×2 (08:59→19:51)
[2016-08-12] MEDS: TAMSULOSIN 0.4 MG CAP PO SCH (08:59)
[2016-08-12] MEDS: FOLIC ACID 1 MG TAB PO SCH (08:59)
[2016-08-12] MEDS: CARVedilol 6.25 MG TAB PO SCH ×2 (08:59→20:40)
[2016-08-12] MEDS: NYSTATIN 100,000 UNITS/GM TOPICAL PWD 15 GM TOP SCH ×2 (09:00→20:40)
[2016-08-12] MEDS: OXAZEPAM 10 MG CAP PO PRN (12:54)
[2016-08-12] MEDS: traZODone 50 MG TAB PO SCH (20:40)
[2016-08-13] MEDS: ACETAMINOPHEN TAB 650MG DOSE (2X325MG) PO SCH ×3 (00:43→12:01)
[2016-08-13 02:00] VITALS: BP 100/58
[2016-08-13] MEDS: OXAZEPAM 10 MG CAP PO PRN (04:18)
[2016-08-13 06:00] VITALS: BP 107/60
[2016-08-13 09:00] VITALS: BP 110/65
[2016-08-13] MEDS: CARVedilol 6.25 MG TAB PO SCH (09:00)
[2016-08-13] MEDS: SERTRALINE HCL 25 MG TABLET PO SCH (09:43)
[2016-08-13] MEDS: MULTIVITAMINS/MINERALS THERAP 1 TAB PO SCH (09:43)
[2016-08-13] MEDS: SENOKOT S TAB PO SCH (09:44)
[2016-08-13] MEDS: NYSTATIN 100,000 UNITS/GM TOPICAL PWD 15 GM TOP SCH (09:44)
[2016-08-13] MEDS: CYANOCOBALAMIN 500 MCG TAB PO SCH (09:44)
[2016-08-13] MEDS: FOLIC ACID 1 MG TAB PO SCH (09:44)
[2016-08-13] MEDS: THIAMINE 100 MG TAB PO SCH (09:44)
[2016-08-13] MEDS: DONEPEZIL 5 MG TAB PO SCH (09:44)
[2016-08-13] MEDS: TAMSULOSIN 0.4 MG CAP PO SCH (09:44)
[2016-08-13 09:50] VITALS: BP 137/66
[2016-08-13 10:00] VITALS: BP 131/56
--- NOTE | 2016-08-13 11:47 | IPNPDOC ---
Date Seen The patient was seen on 08/13/16. Progress Note NEUROSURGERY ADMISSION DAY #17. POSTOPERATIVE DAY #16 and #14. PAIN CONTROL: Satisfactory with [place] 5/325mg PO q 4 hrs PRN for pain and Tylenol 650 mg PO q 6 hrs PRN for pain. SURGICAL PROCEDURE: 1.)[place] hole placement with insertion of 2 drains in right and left side parietal region for bilateral chronic subdural hematoma (SDH). 2.) Removal of 2 drains from the right and left side of skull and cinthia hole placement with insertion of 1 new drain in left frontal region. Over 24 hour period: Mood has been well today. He had received Serax early this morning and Haldol last night for episode of increased agitation. His room was moved from 4227 to the other side of 4th floor, 4209. Family is to arrange 24-hr supervision at home, with help of PFS. Per nursing, daughter was given a list of potential 24-hr care providers and will let us know when it is set up. I am told this could be today or tomorrow. He was seen by Dr Ng, psych, on 08/10/16 who states he does display the capacity to make decisions regarding his healthcare at present and displays the capacity to nominate his healthcare proxy or proxies, as well as power of securities attorney. SUBJECTIVE: Mr. Brooks is a 71-year-old male who was admitted for an acute on chronic bilateral SDH on 07/27/16. He is anxious to get home and correctly tells me he has been here for 17 days. Appears to be in good spirits today, but becomes mildly frustrated when discussing safety concerns at home. No new concerns for today. He has been eating and drinking well. He is walking well, accompanied by sitter. He denies pain at incision sites, chills, night sweats, headache, dizziness, weakness, paresthesias, fatigue, bladder or bowel incontinence, any leg pain or swelling, any nausea or vomiting. OBJECTIVE: CLINICAL STATUS: AVSS. NEUROLOGICAL STATUS: He is alert and oriented to person, place, date, month, and year. GCS = E4M6V5 = 15. His speech is fluent. Mood is improved, in good spirits today. No agitation. He protrudes his tongue on occasion multiple times consecutively during conversation. WOUND/INCISION: Incision over the left frontal region closed with aida and covered with 4x4 dressing-- healing. Incisions over parietal regions appear to be healing well. There does not appear to be any increased drainage, any surrounding erythema, or increased pain at the incision sites. CRANIAL NERVES: II through XII are intact. MOTOR: Strength is 5/5 bilaterally throughout. He is able to stand up without any difficulty. SENSORY: Intact to light touch in all 4 extremities. LABORATORY DATA: from 08/12/16 WBC= 6.0 Hemoglobin= 13.2 Sodium= 140 Potassium= 3.8 IMAGING: No new studies. ASSESSMENT: Improving. Acute on chronic bilateral subdural hematomas. 1. Acute on chronic bilateral subdural hematomas: Drained. Improved. No acute neurosurgical issues at this time. 2. Underlying dementia: plan per psych. For symptoms of sundowning delirium, please call hospitalist. 3. DC planning: PFS has been contacted. Plan to discharge to home with 24-hr supervision. Once this arranged, he will be discharged. 4. Wound care: Aida placed 08/08/16 over re-opened incision left frontal region. Will plan to D/C aida in 2 days. Incisions over parietal regions appear to be healing well. 5. Pain control: Cont [place] 5/325 mg PO q 4 hrs PRN and Tylenol 650 mg PO q 6 hrs PRN. He hasn't been asking for pain med. No complaints of pain. 6. Deep venous thrombosis (DVT) prophylaxis: TEDs and sequential compression devices. 7. Diet: as tolerated. 8. Activity: as tolerated with assistance/monitoring due to his increased risk of falls and inability to understand his physical limitations. 9. Nausea prophylaxis: Cont Zofran 4mg PO q 8 hrs PRN. 10. Constipation prophylaxis: continue MOM and colace. Thank you for all consulting providers for your much appreciated help regarding care of Mr Brooks. SE AnthonyC VS, I&O, 24H, Fishbone Vital Signs/I&O Vital Signs Date Time Temp Pulse Resp B/P (MAP) Pulse Ox O2 Delivery O2 Flow Rate FiO2 08/13/16 10:00 98.5 53 16 131/56 (81) 98 Room Air I&O- Last 24 Hours up to 6 AM 08/13/16 06:00 Intake Total 2310 ml Output Total 0 ml Balance 2310 ml YEIMY BAIG PA-C Aug 13, 2016 11:47
[2016-08-13 14:00] VITALS: BP 137/66
--- NOTE | 2016-08-17 16:12 | DS.PDOC ---
Discharge Summary General Date of Admission Jul 27, 2016 at 17:18 Date of Discharge 08/13/2016 Attending Physician: MARY VARGAS MD Discharge Summary PROCEDURES PERFORMED DURING STAY: 1.)[place]inthia hole placement with insertion of 2 drains in right and left side parietal region for bilateral chronic subdural hematoma (SDH). 2.) Removal of 2 drains from the right and left side of skull and cinthia hole placement with insertion of 1 new drain in left frontal region. ADMITTING DIAGNOSES: 1. Acute on chronic bilateral subdural hematomas. DISCHARGE DIAGNOSES: 1. Acute on chronic bilateral subdural hematomas: Drained. Improved. 2. Underlying dementia. CHIEF COMPLAINT: Upon arrival at the hospital through ED, he was unaware why he was here. He denied any symptoms. Upon leaving the hospital, he is able to tell me he had surgery on his head after a fall at home. However, he still does not remember the fall or arriving to the ED. HISTORY OF PRESENT ILLNESS: Mr. Brooks is a 71-year-old male who was admitted for an acute on chronic bilateral SDH on 07/27/16. He has presented to the ED via ambulance and does not remember his arrival to the hospital or why he arrived at the ED. He has a history of alcoholism and had just lost his of 43+ years 3 weeks ago. He was showing signs of short term memory loss as he would not remember events that had just occurred or staff that had recently visited. He underwent 2 neurosurgical procedure to drain blood from right and left parietal regions and left frontal region. His disposition began to improve. Although, he was demonstrating significant improvements of his short term memory during the course of his stay, he would become intermittently agitated yelling on occasion as it was quite frustrating for him. He had been eating and drinking well during his hospital stay. He was walking without any difficulty or instability accompanied by sitter. He denies pain at incision sites, chills, night sweats, headache, dizziness, weakness, paresthesias, fatigue, bladder or bowel incontinence, any leg pain or swelling, any nausea or vomiting. Prior to surgery, we discussed all possible risks of surgery, as well as the risks of surgery providing no relief to his complaints with patient and his family. His daughter, Soraya, had been chosen for proxy and nursing and social workers helped the family with this paperwork. Patient and family understand the potential risks and benefits and wished to proceed with surgery for a possibility of improvement in symptoms. HOSPITAL COURSE: Patient was admitted to 4th floor following surgery. His hospital course has been uneventful. He denies any postop symptoms and has remained afebrile. No new focal motor deficits have been noted on exam. DISCHARGE MEDICATIONS: Please see below. ALLERGIES: Please see below. PHYSICAL EXAMINATION ON DISCHARGE: VITAL SIGNS: Please see below. GENERAL: Sitting comfortably and participating in conversation well. Pleasant and excited about his discharge. Appears to be in no acute distress. He is dressed in his street clothes and sitting in the chair appearing ready to leave. EXTREMITIES: No peripheral edema, ecchymosis, or lesions. Moving all 4 extremities well. SKIN: Mild bruising present over anterior forearms. Edges of the incisions over right and left parietal regions are close together nicely and dry. Aida over the left frontal incision are intact with dry bandage covering them. There is no active drainage, erythema, or significant swelling noted. NEUROLOGICAL EXAMINATION: Alert and oriented 3. Rate and flow speech is ordinary. Speech is fluent. No new focal deficits noted on exam. LABORATORY DATA: Please see below. IMAGIN. See chart for details. Activity: See below in discharge instructions Diet: See below in discharge instructions DISCHARGE PLAN AND INSTRUCTIONS: The following discharge instructions have been discussed with the patient. A handout has been given as well. 1. Discharged to home with 24-7 monitoring/supervision. This was discussed at length with the family. Return to the office in 2 days to have aida removed. 2. Keep incision clean and inspect daily for signs of infection (redness, discharge, swelling, increased pain, and warmth. 3. You may shower 48 hours after your surgery. Avoid bath tubs, hot tubs/ whirlpools, and swimming pools until cleared by surgeon or PA. 4. Do not apply lotions or creams near the incision site. 5. Start walking around the house as soon as possible. This helps to reduce swelling and lowers the chance of blood clots. 6. Continue to gradually increase physical activity. 7. Climbing stairs at home is permitted as tolerated with caution. If available use handrails and taken time going up and down the stairs pain close attention to place each foot on each step carefully. 8. No bending, twisting, pulling, pushing, or lifting greater than 5 pounds until follow-up in the office. 9. No strenuous activity for at least 2 weeks. 10. Get plenty of rest. 11. Follow-up balance diet and drink plenty of water. 12. Decreased activity and pain medications may promote constipation, so you may want to add more raw fruit to your diet. A mild pkjv-dbf-qnyytex stool softener or laxative may be used if necessary. 13. Take pain medication as prescribed. Pain medication will not remove all the pain, but will lessen it significantly. 14. Do not drink alcohol when taking pain medications. 15. Do not drive or operate any machinery until youre given specific instructions about driving when you follow-up in the office. 16. He is to call office to schedule follow-up appointment within 1-2 weeks or if any new signs or symptoms develop; [phone]. 17. He understands to call the office if any new questions arise. WHAT TO EXPECT: - Soreness, stiffness, and aching can be expected after surgery. - [id number]-thxfhgwb postoperative pain. - Periods of fatigue and/or tiredness. -Healing is a slow and gradual process. - May experience a sore throat and/or hoarseness of your voice. - Some numbness may be present around the area of the incision which may persist for several weeks. WHEN TO CALL: - Increased swelling or bruising. - If swelling and redness persist after a few days. - Increased redness along the incision. -If any unusual bleeding or drainage developed at the incision site. -If severe or increased pain not relieved by medication develops. - If any side effects to medications, such as rash, nausea, vomiting, or headache, arises. - If temperature of 100.5 or greater. - If any calf pain and/or swelling in any extremity develops. - Any new or increased difficulty breathing or shortness of breath. - Any loss of feeling or motion. - Increased intensity of headache or headache not responding tear medications. - Inability to urinate. - Extreme fatigue or lethargy. - Any worsening of any of your symptoms. All questions have been answered to patient's satisfaction. Patient understands and is aware of possible catastrophic sequela if he does not follow these recommendations. Patient agrees to follow-up in the office within 2 weeks or sooner if needed. DISCHARGE CONDITION: Stable. TIME SPENT ON DISCHARGE: Greater than 45 minutes. Maya Burgos RPA-C Vital Signs/I&Os Vital Signs Date Time Temp Pulse Resp B/P (MAP) Pulse Ox O2 Delivery O2 Flow Rate FiO2 08/13/16 14:00 97.0 69 18 137/66 (89) 97 Room Air I&O- Last 24 Hours up to 6 AM 08/13/16 05:59 Intake Total 2430 ml Output Total 0 ml Balance 2430 ml Discharge Medications Scheduled (Sertraline HCl) 25 Mg Tab, 25 MG PO DAILY, (Reported) Carvedilol (Carvedilol) 6.25 Mg Tab, 6.25 MG PO BID, (Reported) Cyanocobalamin (Vitamin B-12) 1,000 Mcg Tab, 1,000 MCG PO DAILY, (Reported) Donepezil Hcl (Donepezil HCl) 10 Mg Tab, 10 MG PO DAILY, (Reported) Tamsulosin Hydrochloride (Flomax) 0.4 Mg Cap, 0.4 MG PO DAILY, (Reported) Trandolapril (Trandolapril) 2 Mg Tab, 2 MG PO DAILY, (Reported) Scheduled PRN Alprazolam (Alprazolam) 0.25 Mg Tab, 0.25 MG PO TID PRN for ANXIETY, (Reported) Allergies Coded Allergies: Codeine (Verified Adverse Reaction, Mild, HALLUCINATIONS, 07/27/16) YEIMY BURGOS PA-C Aug 13, 2016 16:25
== END 2016-08-13 18:30 | disposition home or self-care (01) | DRG 25 ==
LOC: EDBD 10:38 → M ED 16:11 → M ED INP 17:18 → M PCU 20:13 → M ICU 07-28 12:44 → M MSPAV 07-31 14:24
PROVIDERS: ADMIT Neurological Surgery; ATTEND Neurological Surgery
PROC: 009400Z Drainage of Intracranial Subdural Space with Drainage Device, Open Approach (ICD-10-PCS; principal; 2016-07-28 08:00)
PROC: 00P Central Nervous System and Cranial Nerves, Removal (ICD-10-PCS; 2016-07-30)
PROC: 009400Z Drainage of Intracranial Subdural Space with Drainage Device, Open Approach (ICD-10-PCS; 2016-07-30)
DX: S06.5X0A Traumatic subdural hemorrhage without loss of consciousness, initial encounter (principal); G93.5 Compression of brain; G93.41 Metabolic encephalopathy; E87.0 Hyperosmolality and hypernatremia; F03.90 Unspecified dementia, unspecified severity, without behavioral disturbance, psychotic disturbance, mood disturbance, and anxiety; R41.0 Disorientation, unspecified; I10 Essential (primary) hypertension; N40.0 Benign prostatic hyperplasia without lower urinary tract symptoms; F41.9 Anxiety disorder, unspecified; E87.6 Hypokalemia; F32.9 Major depressive disorder, single episode, unspecified; W01.0XXA Fall on same level from slipping, tripping and stumbling without subsequent striking against object, initial encounter; F10.10 Alcohol abuse, uncomplicated; Y92.012 Bathroom of single-family (private) house as the place of occurrence of the external cause; S01.01XA Laceration without foreign body of scalp, initial encounter; Y99.8 Other external cause status; Y93.E8 Activity, other personal hygiene; Z88.5 Allergy status to narcotic agent; Z79.899 Other long term (current) drug therapy; Z85.828 Personal history of other malignant neoplasm of skin

== ENCOUNTER → 2016-09-17 | Outpatient (CLI) | payer MEDICARE, BC, OTHER ==
[~2016-09-17] MED LIST changes: +ALPR0.25 PO; +ARIC1TAB2; +DONETAB6 PO; +FLOM5CAP PO; +SERT25TA88; +SERT25TA88 PO; -TRAN2TAB4; +TRAN2TAB8; +TRAN2TAB8 PO; +VITA10002; +VITA10002 PO
--- NOTE | 2016-09-17 13:41 | REP ---
CT OF THE BRAIN WITHOUT CONTRAST: REASON: Followup bilateral subdural hematoma. COMPARISON: 08/02/2016. The left sided chronic subdural hematoma seen with rebleeding over the left cerebral hemisphere on the prior examination now has a maximal width of 1.5 cm which as improved from the prior exam. No abnormal increased density is seen in the hematoma that would be considered consistent with a rebleed at this time. The smaller right sided subdural hematoma has also decreased in size and now has a maximum width of 4 mm previously 9 mm. There is no evidence of rebleeding in the right subdural hematoma. There are no other significant changes compared to the prior exam. IMPRESSION: Improvement as described above. Signed by Chago Couch DO 09/17/2016 04:30 P
== END ==
LOC: M RAD 12:08
PROVIDERS: ATTEND Physician Assistant Surgical
DX: S06.5X0A Traumatic subdural hemorrhage without loss of consciousness, initial encounter (principal); X58.XXXA Exposure to other specified factors, initial encounter; Y92.89 Other specified places as the place of occurrence of the external cause; Y93.89 Activity, other specified; Y99.8 Other external cause status

== ENCOUNTER → 2016-10-08 | Outpatient (CLI) | payer MEDICARE, BC, OTHER ==
[2016-10-10 00:06] LABS: PSA TOTAL 0.8 ng/mL (0.0-4.0)
== END ==
LOC: M SMT 09:45
PROVIDERS: ATTEND Urology
DX: R97.20 Elevated prostate specific antigen [PSA] (principal)

== ENCOUNTER 2017-07-08 19:05 | Emergency (ER) | payer MEDICARE, BC, OTHER ==
[2017-07-08] MEDS: NS 1,000 ML IV (17:45)
[2017-07-08] MEDS: levETIRAcetam 250MG TABLET (KEPPRA) PO (18:15)
[2017-07-08 18:16] LABS: BASO % 0.3 % (0.0-1.0); EOS # 0.1 10^3/uL (0.0-0.50); HEMATOCRIT 40.3 % (42.0-52.0); HEMOGLOBIN 13.8 g/dl (13.5-17.5); IMMATURE GRANULOCYTE % 0.2 % (0-3.0); LYMPH # 1.4 10^3/uL (1.5-4.5); LYMPH % 23.3 % (24.0-44.0); MEAN CORPUSCULAR HEMOGLOBIN 30.5 pg (27.0-33.0); MEAN CORPUSCULAR HGB CONC 34.2 g/dl (32.0-36.5); MEAN CORPUSCULAR VOLUME 89.2 fl (80.0-96.0); MONO # 0.5 10^3/uL (0.0-0.8); MONO % 8.7 % (0.0-5.0); NEUTROPHILS # 4.1 10^3/uL (1.8-7.7); NEUTROPHILS % 66.5 % (36.0-66.0); PLATELET COUNT, AUTOMATED 164 10^3/uL (150-450); RED BLOOD COUNT 4.52 10^6/uL (4.30-6.10); RED CELL DISTRIBUTION WIDTH 12.5 % (11.5-14.5); WHITE BLOOD COUNT 6.1 10^3/uL (4.0-10.0)
[2017-07-08 18:49] LABS: LACTIC ACID SEPSIS PROTOCOL 1.1 MMOL/L (0.4-2.0)
[2017-07-08 18:49] LABS: ACETAMINOPHEN LEVEL 3.1 UG/ML (10.0-30.0); ALBUMIN 3.3 GM/DL (3.2-5.2); ALBUMIN/GLOBULIN RATIO 1.27 (1.00-1.93); ALKALINE PHOSPHATASE 43 U/L (45-117); ALT/SGPT 30 U/L (12-78); ANION GAP 5 MEQ/L (8-16); AST/SGOT 21 U/L (7-37); BILIRUBIN,DIRECT 0.1 MG/DL (0.0-0.2); BILIRUBIN,TOTAL 0.4 MG/DL (0.2-1.0); BLOOD UREA NITROGEN 7 MG/DL (7-18); CALCIUM LEVEL 8.2 MG/DL (8.8-10.2); CARBON DIOXIDE LEVEL 29 MEQ/L (21-32); CHLORIDE LEVEL 107 MEQ/L (98-107); CPK CREATINE PHOSPHOKINASE 167 U/L (39-308); ETHYL ALCOHOL (ETHANOL) 0.004 % (0.000-0.010); GLOMERULAR FILTRATION RATE > 60.0 (>42); GLUCOSE, FASTING 90 MG/DL (70-100); POTASSIUM SERUM 3.7 MEQ/L (3.5-5.1); SALICYLATE LEVEL < 1.7 MG/DL (5.0-30.0); SODIUM LEVEL 141 MEQ/L (136-145); TOTAL PROTEIN 5.9 GM/DL (6.4-8.2); TROPONIN I < 0.02 NG/ML (< 0.10)
[2017-07-08 18:51] LABS: KETONE, URINE AUTO RFX NEGATIVE (NEGATIVE); LEUKOCYTE ESTERASE UR AUTO RFX 3+ (NEGATIVE); NITRITE, URINE AUTO RFX NEGATIVE (NEGATIVE); RBC, URINE AUTO RFX 2 /HPF (0-3); SPECIFIC GRAVITY UR AUTO RFX 1.008 (1.002-1.035); SQUAM EPITHELIAL CELL UR AURFX 0 /HPF (0-6); WBC, URINE AUTO RFX 26 /HPF (0-3)
[2017-07-08 18:55] LABS: CK-MB VALUE MASS 3.7 NG/ML (<3.6); MB/CK RELATIVE INDEX 2.21 (< OR =4)
[2017-07-08 19:00] LABS: AMPHETAMINES LEVEL URINE NEGATIVE (NEGATIVE); BARBITURATES URINE NEGATIVE (NEGATIVE); BENZODIAZEPINES URINE NEGATIVE (NEGATIVE); CANNABINOIDS URINE NEGATIVE (NEGATIVE); COCAINE METABOLITE URINE NEGATIVE (NEGATIVE); METHADONE URINE NEGATIVE (NEGATIVE); OPIATES URINE NEGATIVE (NEGATIVE); PHENCYCLIDINE URINE NEGATIVE (NEGATIVE)
[2017-07-08] MEDS: CIPROFLOXACIN 500 MG TAB PO (19:47)
== END 2017-07-08 19:54 | disposition home or self-care (01) ==
LOC: M ED 19:05
DX: J06.9 Acute upper respiratory infection, unspecified (principal); G40.209 Localization-related (focal) (partial) symptomatic epilepsy and epileptic syndromes with complex partial seizures, not intractable, without status epilepticus; R00.1 Bradycardia, unspecified; I10 Essential (primary) hypertension; Z86.73 Personal history of transient ischemic attack (TIA), and cerebral infarction without residual deficits; Z82.49 Family history of ischemic heart disease and other diseases of the circulatory system; Z82.3 Family history of stroke; Z79.899 Other long term (current) drug therapy; Z88.5 Allergy status to narcotic agent

== ENCOUNTER 2017-07-11 11:52 | Inpatient (IN) | payer MEDICARE, BC, OTHER ==
[2017-07-11 12:36] LABS: BASO % 0.2 % (0.0-1.0); EOS # 0.1 10^3/uL (0.0-0.50); HEMATOCRIT 39.3 % (42.0-52.0); HEMOGLOBIN 13.4 g/dl (13.5-17.5); IMMATURE GRANULOCYTE % 0.2 % (0-3.0); LYMPH # 1.1 10^3/uL (1.5-4.5); LYMPH % 19.2 % (24.0-44.0); MEAN CORPUSCULAR HEMOGLOBIN 30.7 pg (27.0-33.0); MEAN CORPUSCULAR HGB CONC 34.1 g/dl (32.0-36.5); MEAN CORPUSCULAR VOLUME 89.9 fl (80.0-96.0); MONO # 0.5 10^3/uL (0.0-0.8); MONO % 7.8 % (0.0-5.0); NEUTROPHILS # 4.3 10^3/uL (1.8-7.7); NEUTROPHILS % 71.6 % (36.0-66.0); PLATELET COUNT, AUTOMATED 167 10^3/uL (150-450); RED BLOOD COUNT 4.37 10^6/uL (4.30-6.10); RED CELL DISTRIBUTION WIDTH 12.6 % (11.5-14.5); WHITE BLOOD COUNT 5.9 10^3/uL (4.0-10.0)
[2017-07-11] MEDS: NS 1,000 ML IV ×3 (13:20→23:00)
[2017-07-11 13:21] LABS: ANION GAP 6 MEQ/L (8-16); BLOOD UREA NITROGEN 8 MG/DL (7-18); CALCIUM LEVEL 8.4 MG/DL (8.8-10.2); CARBON DIOXIDE LEVEL 25 MEQ/L (21-32); CHLORIDE LEVEL 110 MEQ/L (98-107); CREATININE FOR GFR 0.73 MG/DL (0.70-1.30); GLOMERULAR FILTRATION RATE > 60.0 (>42); GLUCOSE, FASTING 97 MG/DL (70-100); POTASSIUM SERUM 3.8 MEQ/L (3.5-5.1); SODIUM LEVEL 141 MEQ/L (136-145)
[2017-07-11 13:32] LABS: LACTIC ACID SEPSIS PROTOCOL 0.9 MMOL/L (0.4-2.0)
[2017-07-11 13:32] LABS: KETONE, URINE AUTO RFX NEGATIVE (NEGATIVE); NITRITE, URINE AUTO RFX NEGATIVE (NEGATIVE); RBC, URINE AUTO RFX 0 /HPF (0-3); SPECIFIC GRAVITY UR AUTO RFX 1.008 (1.002-1.035); SQUAM EPITHELIAL CELL UR AURFX 0 /HPF (0-6); WBC, URINE AUTO RFX 0 /HPF (0-3)
[2017-07-11 13:39] LABS: CK-MB VALUE MASS 2.8 NG/ML (<3.6); CPK CREATINE PHOSPHOKINASE 144 U/L (39-308); MB/CK RELATIVE INDEX 1.94 (< OR =4); TROPONIN I < 0.02 NG/ML (< 0.10)
[2017-07-11 13:42] LABS: INR 1.01; PROTHROMBIN TIME 13.4 SECONDS (12.4-14.5)
[2017-07-11 14:10] LABS: LEUKOCYTE ESTERASE UR AUTO RFX TRACE (NEGATIVE)
[2017-07-11] MEDS: LORazepam 2 MG/ML VIAL (J2060) IV (14:30)
[2017-07-11] MEDS: HEPARIN SOD (PORCINE) 5000 UNITS/ML VIAL SC ×2 (18:13→23:51)
[2017-07-11] MEDS: LISINOPRIL 10 MG TAB PO (18:14)
[2017-07-11] MEDS: TAMSULOSIN 0.4 MG CAP PO (20:49)
[2017-07-12 05:54] LABS: HEMATOCRIT 40.1 % (42.0-52.0); HEMOGLOBIN 13.2 g/dl (13.5-17.5); MEAN CORPUSCULAR HEMOGLOBIN 30.1 pg (27.0-33.0); MEAN CORPUSCULAR HGB CONC 32.9 g/dl (32.0-36.5); MEAN CORPUSCULAR VOLUME 91.6 fl (80.0-96.0); PLATELET COUNT, AUTOMATED 161 10^3/uL (150-450); RED BLOOD COUNT 4.38 10^6/uL (4.30-6.10); RED CELL DISTRIBUTION WIDTH 12.7 % (11.5-14.5); WHITE BLOOD COUNT 4.9 10^3/uL (4.0-10.0)
[2017-07-12 06:12] LABS: ANION GAP 5 MEQ/L (8-16); BLOOD UREA NITROGEN 9 MG/DL (7-18); CARBON DIOXIDE LEVEL 26 MEQ/L (21-32); CHLORIDE LEVEL 114 MEQ/L (98-107); CREATININE FOR GFR 0.76 MG/DL (0.70-1.30); GLOMERULAR FILTRATION RATE > 60.0 (>42); GLUCOSE, FASTING 90 MG/DL (70-100); MAGNESIUM LEVEL 2.2 MG/DL (1.8-2.4); POTASSIUM SERUM 4.1 MEQ/L (3.5-5.1); SODIUM LEVEL 145 MEQ/L (136-145)
[2017-07-12] MEDS: HEPARIN SOD (PORCINE) 5000 UNITS/ML VIAL SC ×3 (06:36→21:39)
[2017-07-12] MEDS: LISINOPRIL 10 MG TAB PO (09:00)
[2017-07-12] MEDS: DONEPEZIL 5 MG TAB PO (09:02)
[2017-07-12] MEDS: CYANOCOBALAMIN 500 MCG TAB PO (09:03)
[2017-07-12 16:57] LABS: AMMONIA 17 uMOL/L (<32)
[2017-07-12] MEDS: TAMSULOSIN 0.4 MG CAP PO (21:38)
[2017-07-13 05:04] LABS: HEMATOCRIT 39.1 % (42.0-52.0); HEMOGLOBIN 12.9 g/dl (13.5-17.5); MEAN CORPUSCULAR HEMOGLOBIN 30.1 pg (27.0-33.0); MEAN CORPUSCULAR VOLUME 91.1 fl (80.0-96.0); PLATELET COUNT, AUTOMATED 144 10^3/uL (150-450); RED BLOOD COUNT 4.29 10^6/uL (4.30-6.10); RED CELL DISTRIBUTION WIDTH 12.8 % (11.5-14.5); WHITE BLOOD COUNT 3.6 10^3/uL (4.0-10.0)
[2017-07-13] MEDS: HEPARIN SOD (PORCINE) 5000 UNITS/ML VIAL SC ×3 (05:14→20:50)
[2017-07-13 05:25] LABS: ANION GAP 5 MEQ/L (8-16); BLOOD UREA NITROGEN 8 MG/DL (7-18); CARBON DIOXIDE LEVEL 28 MEQ/L (21-32); CHLORIDE LEVEL 113 MEQ/L (98-107); CREATININE FOR GFR 0.66 MG/DL (0.70-1.30); GLOMERULAR FILTRATION RATE > 60.0 (>42); GLUCOSE, FASTING 92 MG/DL (70-100); MAGNESIUM LEVEL 2.2 MG/DL (1.8-2.4); POTASSIUM SERUM 3.7 MEQ/L (3.5-5.1); SODIUM LEVEL 146 MEQ/L (136-145)
[2017-07-13 08:44] LABS: BEDSIDE GLUCOSE 94 MG/DL (83-110)
[2017-07-13] MEDS: CYANOCOBALAMIN 500 MCG TAB PO ×2 (09:00→14:11)
[2017-07-13] MEDS: DONEPEZIL 5 MG TAB PO (09:00)
[2017-07-13] MEDS: LISINOPRIL 10 MG TAB PO ×2 (09:00→14:11)
[2017-07-13] MEDS: HALOPERIDOL 5 MG/ML VIAL (J1630) IV ×2 (09:15→11:35)
[2017-07-13] MEDS: FOLIC ACID 1 MG TAB PO (14:11)
[2017-07-13] MEDS: THIAMINE 100 MG TAB PO (14:11)
[2017-07-13] MEDS: MEMANTINE 5MG TABLET (NAMENDA) PO ×2 (14:11→20:49)
[2017-07-13] MEDS: ARIPiprazole 2 MG TAB PO (15:00)
[2017-07-13] MEDS: OLANZapine 5 MG TAB PO (15:39)
[2017-07-13] MEDS ORDERED: SLF 3 ML SYR IV (15:45)
[2017-07-13] MEDS: TAMSULOSIN 0.4 MG CAP PO (20:49)
[2017-07-13] MEDS: SLF 3 ML SYR IV (20:50)
[2017-07-14 05:01] LABS: HEMATOCRIT 38.7 % (42.0-52.0); HEMOGLOBIN 12.6 g/dl (13.5-17.5); MEAN CORPUSCULAR HEMOGLOBIN 29.9 pg (27.0-33.0); MEAN CORPUSCULAR HGB CONC 32.6 g/dl (32.0-36.5); MEAN CORPUSCULAR VOLUME 91.7 fl (80.0-96.0); PLATELET COUNT, AUTOMATED 129 10^3/uL (150-450); RED BLOOD COUNT 4.22 10^6/uL (4.30-6.10); RED CELL DISTRIBUTION WIDTH 12.8 % (11.5-14.5); WHITE BLOOD COUNT 4.2 10^3/uL (4.0-10.0)
[2017-07-14 05:21] LABS: ALBUMIN 2.9 GM/DL (3.2-5.2); ALBUMIN/GLOBULIN RATIO 1.04 (1.00-1.93); ALKALINE PHOSPHATASE 35 U/L (45-117); ALT/SGPT 17 U/L (12-78); ANION GAP 4 MEQ/L (8-16); AST/SGOT 13 U/L (7-37); BILIRUBIN,DIRECT 0.1 MG/DL (0.0-0.2); BILIRUBIN,TOTAL 0.4 MG/DL (0.2-1.0); BLOOD UREA NITROGEN 7 MG/DL (7-18); CALCIUM LEVEL 7.9 MG/DL (8.8-10.2); CARBON DIOXIDE LEVEL 30 MEQ/L (21-32); CHLORIDE LEVEL 114 MEQ/L (98-107); CHOLESTEROL LEVEL 130 MG/DL (<200); CHOLESTEROL RISK RATIO 2.407 (<5); CREATININE FOR GFR 0.75 MG/DL (0.70-1.30); GLOMERULAR FILTRATION RATE > 60.0 (>42); GLUCOSE, FASTING 90 MG/DL (70-100); HDL CHOLESTEROL 54 MG/DL (>40); LDL CHOLESTEROL 61.4 MG/DL (<100); MAGNESIUM LEVEL 2.3 MG/DL (1.8-2.4); NON-HDL-C 76 MG/DL; POTASSIUM SERUM 3.9 MEQ/L (3.5-5.1); SODIUM LEVEL 148 MEQ/L (136-145); TOTAL PROTEIN 5.7 GM/DL (6.4-8.2); TRIGLYCERIDES LEVEL 73 MG/DL (<150)
[2017-07-14] MEDS: HEPARIN SOD (PORCINE) 5000 UNITS/ML VIAL SC ×3 (06:22→21:02)
[2017-07-14] MEDS: SLF 3 ML SYR IV ×3 (06:22→21:02)
[2017-07-14] MEDS: ARIPiprazole 2 MG TAB PO (07:54)
[2017-07-14] MEDS: THIAMINE 100 MG TAB PO (07:54)
[2017-07-14] MEDS: FOLIC ACID 1 MG TAB PO (07:54)
[2017-07-14] MEDS: MEMANTINE 5MG TABLET (NAMENDA) PO ×2 (07:54→21:02)
[2017-07-14] MEDS: OLANZapine 5 MG TAB PO (07:54)
[2017-07-14] MEDS: LISINOPRIL 10 MG TAB PO (07:54)
[2017-07-14] MEDS: ACETAMINOPHEN TAB 650MG DOSE (2X325MG) PO (07:55)
[2017-07-14 08:06] LABS: LEVETIRACETAM (KEPPRA) 13.5 ug/mL (10.0-40.0)
[2017-07-14] MEDS: MULTIVITAMINS/MINERALS THERAP 1 TAB PO (16:34)
[2017-07-14] MEDS: TAMSULOSIN 0.4 MG CAP PO (21:02)
[2017-07-14] MEDS: CitaloPRAM (CeleXA) 10 MG TABLET PO (21:02)
[2017-07-14] MEDS: OLANZapine 2.5MG TABLET PO (21:02)
[2017-07-15 05:18] LABS: HEMATOCRIT 40.6 % (42.0-52.0); HEMOGLOBIN 13.5 g/dl (13.5-17.5); MEAN CORPUSCULAR HEMOGLOBIN 30.5 pg (27.0-33.0); MEAN CORPUSCULAR HGB CONC 33.3 g/dl (32.0-36.5); MEAN CORPUSCULAR VOLUME 91.9 fl (80.0-96.0); PLATELET COUNT, AUTOMATED 147 10^3/uL (150-450); RED BLOOD COUNT 4.42 10^6/uL (4.30-6.10); RED CELL DISTRIBUTION WIDTH 12.8 % (11.5-14.5); WHITE BLOOD COUNT 4.5 10^3/uL (4.0-10.0)
[2017-07-15 05:33] LABS: ANION GAP 4 MEQ/L (8-16); BLOOD UREA NITROGEN 8 MG/DL (7-18); CALCIUM LEVEL 7.9 MG/DL (8.8-10.2); CARBON DIOXIDE LEVEL 30 MEQ/L (21-32); CHLORIDE LEVEL 112 MEQ/L (98-107); CREATININE FOR GFR 0.75 MG/DL (0.70-1.30); GLOMERULAR FILTRATION RATE > 60.0 (>42); GLUCOSE, FASTING 82 MG/DL (70-100); MAGNESIUM LEVEL 2.3 MG/DL (1.8-2.4); POTASSIUM SERUM 3.9 MEQ/L (3.5-5.1); SODIUM LEVEL 146 MEQ/L (136-145)
[2017-07-15] MEDS: SLF 3 ML SYR IV ×3 (05:38→21:11)
[2017-07-15] MEDS: HEPARIN SOD (PORCINE) 5000 UNITS/ML VIAL SC ×3 (05:38→21:10)
[2017-07-15] MEDS: MULTIVITAMINS/MINERALS THERAP 1 TAB PO (07:44)
[2017-07-15] MEDS: CYANOCOBALAMIN 500 MCG TAB PO (07:45)
[2017-07-15] MEDS: OLANZapine 5 MG TAB PO (07:45)
[2017-07-15] MEDS: THIAMINE 100 MG TAB PO (07:45)
[2017-07-15] MEDS: FOLIC ACID 1 MG TAB PO (07:48)
[2017-07-15 08:50] LABS: FOLATE 14.2 NG/ML (>5.4)
[2017-07-15] MEDS: ARIPiprazole 2 MG TAB PO (12:29)
[2017-07-15] MEDS: LISINOPRIL 10 MG TAB PO (12:29)
[2017-07-15] MEDS: MEMANTINE 5MG TABLET (NAMENDA) PO ×2 (12:32→21:10)
[2017-07-15] MEDS: CitaloPRAM (CeleXA) 10 MG TABLET PO (21:10)
[2017-07-15] MEDS: TAMSULOSIN 0.4 MG CAP PO (21:10)
[2017-07-15] MEDS: OLANZapine 2.5MG TABLET PO (21:10)
[2017-07-16] MEDS: HEPARIN SOD (PORCINE) 5000 UNITS/ML VIAL SC ×3 (05:10→21:54)
[2017-07-16] MEDS: SLF 3 ML SYR IV ×3 (05:10→21:55)
[2017-07-16 06:46] LABS: BEDSIDE GLUCOSE 102 MG/DL (83-110)
[2017-07-16] MEDS: OLANZapine 5 MG TAB PO ×2 (06:50→21:55)
[2017-07-16] MEDS: CYANOCOBALAMIN 500 MCG TAB PO (08:30)
[2017-07-16] MEDS: MULTIVITAMINS/MINERALS THERAP 1 TAB PO (08:30)
[2017-07-16] MEDS: THIAMINE 100 MG TAB PO (08:30)
[2017-07-16] MEDS: FOLIC ACID 1 MG TAB PO (08:31)
[2017-07-16] MEDS: MEMANTINE 5MG TABLET (NAMENDA) PO ×2 (08:31→21:54)
[2017-07-16] MEDS: LISINOPRIL 10 MG TAB PO (08:31)
[2017-07-16] MEDS: ARIPiprazole 2 MG TAB PO (08:31)
[2017-07-16 09:17] LABS: HEMATOCRIT 43.7 % (42.0-52.0); HEMOGLOBIN 14.3 g/dl (13.5-17.5); MEAN CORPUSCULAR HEMOGLOBIN 29.9 pg (27.0-33.0); MEAN CORPUSCULAR HGB CONC 32.7 g/dl (32.0-36.5); MEAN CORPUSCULAR VOLUME 91.2 fl (80.0-96.0); PLATELET COUNT, AUTOMATED 145 10^3/uL (150-450); RED BLOOD COUNT 4.79 10^6/uL (4.30-6.10); RED CELL DISTRIBUTION WIDTH 12.7 % (11.5-14.5); WHITE BLOOD COUNT 4.2 10^3/uL (4.0-10.0)
[2017-07-16 10:16] LABS: ANION GAP 7 MEQ/L (8-16); BLOOD UREA NITROGEN 9 MG/DL (7-18); CALCIUM LEVEL 8.8 MG/DL (8.8-10.2); CARBON DIOXIDE LEVEL 28 MEQ/L (21-32); CHLORIDE LEVEL 107 MEQ/L (98-107); CREATININE FOR GFR 0.82 MG/DL (0.70-1.30); GLOMERULAR FILTRATION RATE > 60.0 (>42); GLUCOSE, FASTING 103 MG/DL (70-100); MAGNESIUM LEVEL 2.3 MG/DL (1.8-2.4); POTASSIUM SERUM 4.2 MEQ/L (3.5-5.1); SODIUM LEVEL 142 MEQ/L (136-145)
[2017-07-16] MEDS: levETIRAcetam 250MG TABLET (KEPPRA) PO ×2 (15:14→21:55)
[2017-07-16] MEDS: TAMSULOSIN 0.4 MG CAP PO (21:54)
[2017-07-16] MEDS: OLANZapine 2.5MG TABLET PO (21:55)
[2017-07-16] MEDS: CitaloPRAM (CeleXA) 10 MG TABLET PO (21:55)
[2017-07-17] MEDS: SLF 3 ML SYR IV ×3 (06:00→21:19)
[2017-07-17] MEDS: HEPARIN SOD (PORCINE) 5000 UNITS/ML VIAL SC ×3 (06:00→21:19)
[2017-07-17 06:10] LABS: HEMATOCRIT 39.4 % (42.0-52.0); HEMOGLOBIN 12.8 g/dl (13.5-17.5); MEAN CORPUSCULAR HEMOGLOBIN 29.8 pg (27.0-33.0); MEAN CORPUSCULAR HGB CONC 32.5 g/dl (32.0-36.5); MEAN CORPUSCULAR VOLUME 91.8 fl (80.0-96.0); PLATELET COUNT, AUTOMATED 147 10^3/uL (150-450); RED BLOOD COUNT 4.29 10^6/uL (4.30-6.10); RED CELL DISTRIBUTION WIDTH 12.8 % (11.5-14.5); WHITE BLOOD COUNT 4.3 10^3/uL (4.0-10.0)
[2017-07-17 06:29] LABS: ANION GAP 2 MEQ/L (8-16); BLOOD UREA NITROGEN 9 MG/DL (7-18); CALCIUM LEVEL 8.2 MG/DL (8.8-10.2); CARBON DIOXIDE LEVEL 32 MEQ/L (21-32); CHLORIDE LEVEL 111 MEQ/L (98-107); GLOMERULAR FILTRATION RATE > 60.0 (>42); GLUCOSE, FASTING 86 MG/DL (70-100); MAGNESIUM LEVEL 2.3 MG/DL (1.8-2.4); SODIUM LEVEL 145 MEQ/L (136-145)
[2017-07-17] MEDS: THIAMINE 100 MG TAB PO (09:09)
[2017-07-17] MEDS: ARIPiprazole 2 MG TAB PO (09:09)
[2017-07-17] MEDS: FOLIC ACID 1 MG TAB PO (09:09)
[2017-07-17] MEDS: levETIRAcetam 250MG TABLET (KEPPRA) PO ×2 (09:09→21:18)
[2017-07-17] MEDS: CYANOCOBALAMIN 500 MCG TAB PO (09:09)
[2017-07-17] MEDS: MEMANTINE 5MG TABLET (NAMENDA) PO ×2 (09:09→21:18)
[2017-07-17] MEDS: MULTIVITAMINS/MINERALS THERAP 1 TAB PO (09:09)
[2017-07-17] MEDS: LISINOPRIL 5 MG TAB PO (12:41)
[2017-07-17] MEDS: CitaloPRAM (CeleXA) 10 MG TABLET PO (21:18)
[2017-07-17] MEDS: TAMSULOSIN 0.4 MG CAP PO (21:18)
[2017-07-17] MEDS: OLANZapine 2.5MG TABLET PO (21:18)
[2017-07-18 06:20] LABS: HEMATOCRIT 39.1 % (42.0-52.0); MEAN CORPUSCULAR HEMOGLOBIN 30.7 pg (27.0-33.0); MEAN CORPUSCULAR HGB CONC 33.2 g/dl (32.0-36.5); MEAN CORPUSCULAR VOLUME 92.2 fl (80.0-96.0); PLATELET COUNT, AUTOMATED 141 10^3/uL (150-450); RED BLOOD COUNT 4.24 10^6/uL (4.30-6.10); RED CELL DISTRIBUTION WIDTH 12.9 % (11.5-14.5); WHITE BLOOD COUNT 4.6 10^3/uL (4.0-10.0)
[2017-07-18] MEDS: SLF 3 ML SYR IV ×3 (06:22→21:11)
[2017-07-18] MEDS: HEPARIN SOD (PORCINE) 5000 UNITS/ML VIAL SC ×3 (06:22→21:11)
[2017-07-18 07:00] LABS: ANION GAP 5 MEQ/L (8-16); BLOOD UREA NITROGEN 9 MG/DL (7-18); CALCIUM LEVEL 8.3 MG/DL (8.8-10.2); CARBON DIOXIDE LEVEL 30 MEQ/L (21-32); CHLORIDE LEVEL 111 MEQ/L (98-107); CREATININE FOR GFR 0.78 MG/DL (0.70-1.30); GLOMERULAR FILTRATION RATE > 60.0 (>42); GLUCOSE, FASTING 83 MG/DL (70-100); MAGNESIUM LEVEL 2.3 MG/DL (1.8-2.4); POTASSIUM SERUM 3.9 MEQ/L (3.5-5.1); SODIUM LEVEL 146 MEQ/L (136-145)
[2017-07-18] MEDS: THIAMINE 100 MG TAB PO (09:24)
[2017-07-18] MEDS: MULTIVITAMINS/MINERALS THERAP 1 TAB PO (09:24)
[2017-07-18] MEDS: MEMANTINE 5MG TABLET (NAMENDA) PO ×2 (09:24→21:10)
[2017-07-18] MEDS: CYANOCOBALAMIN 500 MCG TAB PO (09:24)
[2017-07-18] MEDS: ARIPiprazole 2 MG TAB PO (09:25)
[2017-07-18] MEDS: FOLIC ACID 1 MG TAB PO (09:25)
[2017-07-18] MEDS: levETIRAcetam 250MG TABLET (KEPPRA) PO ×2 (09:25→21:10)
[2017-07-18] MEDS: OLANZapine 2.5MG TABLET PO (21:10)
[2017-07-18] MEDS: CitaloPRAM (CeleXA) 10 MG TABLET PO (21:10)
[2017-07-18] MEDS: TAMSULOSIN 0.4 MG CAP PO (21:10)
[2017-07-19] MEDS: SLF 3 ML SYR IV (05:05)
[2017-07-19] MEDS: HEPARIN SOD (PORCINE) 5000 UNITS/ML VIAL SC (05:05)
[2017-07-19 09:03] LABS: HEMATOCRIT 43.2 % (42.0-52.0); HEMOGLOBIN 14.4 g/dl (13.5-17.5); MEAN CORPUSCULAR HEMOGLOBIN 30.7 pg (27.0-33.0); MEAN CORPUSCULAR HGB CONC 33.3 g/dl (32.0-36.5); MEAN CORPUSCULAR VOLUME 92.1 fl (80.0-96.0); PLATELET COUNT, AUTOMATED 153 10^3/uL (150-450); RED BLOOD COUNT 4.69 10^6/uL (4.30-6.10); RED CELL DISTRIBUTION WIDTH 12.7 % (11.5-14.5); WHITE BLOOD COUNT 6.8 10^3/uL (4.0-10.0)
[2017-07-19 09:30] LABS: ANION GAP 7 MEQ/L (8-16); BLOOD UREA NITROGEN 12 MG/DL (7-18); CALCIUM LEVEL 8.5 MG/DL (8.8-10.2); CARBON DIOXIDE LEVEL 30 MEQ/L (21-32); CHLORIDE LEVEL 107 MEQ/L (98-107); CREATININE FOR GFR 0.92 MG/DL (0.70-1.30); GLOMERULAR FILTRATION RATE > 60.0 (>42); GLUCOSE, FASTING 123 MG/DL (70-100); SODIUM LEVEL 144 MEQ/L (136-145)
[2017-07-19] MEDS: THIAMINE 100 MG TAB PO (09:36)
[2017-07-19] MEDS: CYANOCOBALAMIN 500 MCG TAB PO (09:36)
[2017-07-19] MEDS: ARIPiprazole 2 MG TAB PO (09:36)
[2017-07-19] MEDS: MEMANTINE 5MG TABLET (NAMENDA) PO (09:36)
[2017-07-19] MEDS: MULTIVITAMINS/MINERALS THERAP 1 TAB PO (09:36)
[2017-07-19] MEDS: FOLIC ACID 1 MG TAB PO (09:36)
[2017-07-19] MEDS: levETIRAcetam 250MG TABLET (KEPPRA) PO (09:36)
[2017-07-19 14:14] LABS: VITAMIN B1 LEVEL WHOLE BLOOD 154.7 nmol/L (66.5-200.0)
== END 2017-07-19 13:12 | disposition home or self-care (01) | DRG 74 ==
LOC: M MSPAV 07-15 12:59 → M ED 11:52 → M ED INP 15:02 → M PCU 18:27
DX: G62.1 Alcoholic polyneuropathy (principal); F33.9 Major depressive disorder, recurrent, unspecified; F03.91 Unspecified dementia, unspecified severity, with behavioral disturbance; N40.0 Benign prostatic hyperplasia without lower urinary tract symptoms; F41.9 Anxiety disorder, unspecified; I10 Essential (primary) hypertension; R00.1 Bradycardia, unspecified; R41.82 Altered mental status, unspecified; R56.9 Unspecified convulsions; I95.1 Orthostatic hypotension; Z85.828 Personal history of other malignant neoplasm of skin; Z79.899 Other long term (current) drug therapy

== ENCOUNTER → 2017-09-08 | Outpatient (REF) | payer MEDICARE, OTHER | LOC: M LAB REF 09:54 | DX: N39.0 Urinary tract infection, site not specified (principal) | CPT/HCPCS: 87086 ==

== ENCOUNTER → 2017-09-27 | Outpatient (CLI) | payer MEDICARE, BC, OTHER ==
[2017-09-27 20:05] LABS: HEMATOCRIT 41.7 % (42.0-52.0); HEMOGLOBIN 13.7 g/dl (13.5-17.5); MEAN CORPUSCULAR VOLUME 92.5 fl (80.0-96.0); RED BLOOD COUNT 4.51 10^6/uL (4.30-6.10); WHITE BLOOD COUNT 8.6 10^3/uL (4.0-10.0)
[2017-09-27 20:06] LABS: BASO % 0.3 % (0.0-1.0); EOS # 0.1 10^3/uL (0.0-0.50); EOS % 0.7 % (0.0-3.0); IMMATURE GRANULOCYTE % 0.6 % (0-3.0); LYMPH # 1.5 10^3/uL (1.5-4.5); LYMPH % 17.8 % (24.0-44.0); MEAN CORPUSCULAR HEMOGLOBIN 30.4 pg (27.0-33.0); MEAN CORPUSCULAR HGB CONC 32.9 g/dl (32.0-36.5); MONO # 0.7 10^3/uL (0.0-0.8); MONO % 8.1 % (0.0-5.0); NEUTROPHILS # 6.2 10^3/uL (1.8-7.7); NEUTROPHILS % 72.5 % (36.0-66.0); PLATELET COUNT, AUTOMATED 153 10^3/uL (150-450); RED CELL DISTRIBUTION WIDTH 12.4 % (11.5-14.5)
[2017-09-27 20:11] LABS: ALBUMIN 3.3 GM/DL (3.2-5.2); ALBUMIN/GLOBULIN RATIO 1.06 (1.00-1.93); ALKALINE PHOSPHATASE 40 U/L (45-117); ALT/SGPT 16 U/L (12-78); ANION GAP 9 MEQ/L (8-16); AST/SGOT 8 U/L (7-37); BILIRUBIN,TOTAL 0.3 MG/DL (0.2-1.0); BLOOD UREA NITROGEN 11 MG/DL (7-18); CALCIUM LEVEL 8.5 MG/DL (8.8-10.2); CARBON DIOXIDE LEVEL 30 MEQ/L (21-32); CHLORIDE LEVEL 101 MEQ/L (98-107); CREATININE FOR GFR 0.89 MG/DL (0.70-1.30); FREE T4 0.87 NG/DL (0.76-1.46); GLOMERULAR FILTRATION RATE > 60.0 (>42); SODIUM LEVEL 140 MEQ/L (136-145); TOTAL PROTEIN 6.4 GM/DL (6.4-8.2)
[2017-09-30 11:21] LABS: GLUCOSE, FASTING 124 MG/DL (70-100)
== END ==
LOC: M WUC 18:00
DX: R42 Dizziness and giddiness (principal)
CPT/HCPCS: 84443

== ENCOUNTER 2017-09-28 11:17 | Emergency (ER) | payer MEDICARE, BC, OTHER ==
[2017-09-28 11:53] LABS: BEDSIDE GLUCOSE 102 MG/DL (83-110)
[2017-09-28 12:01] LABS: BASO % 0.3 % (0.0-1.0); EOS # 0.1 10^3/uL (0.0-0.50); EOS % 1.1 % (0.0-3.0); HEMATOCRIT 41.8 % (42.0-52.0); HEMOGLOBIN 13.9 g/dl (13.5-17.5); IMMATURE GRANULOCYTE % 0.2 % (0-3.0); LYMPH # 1.2 10^3/uL (1.5-4.5); LYMPH % 18.8 % (24.0-44.0); MEAN CORPUSCULAR HEMOGLOBIN 30.3 pg (27.0-33.0); MEAN CORPUSCULAR HGB CONC 33.3 g/dl (32.0-36.5); MEAN CORPUSCULAR VOLUME 91.3 fl (80.0-96.0); MONO # 0.7 10^3/uL (0.0-0.8); MONO % 10.3 % (0.0-5.0); NEUTROPHILS # 4.4 10^3/uL (1.8-7.7); NEUTROPHILS % 69.3 % (36.0-66.0); PLATELET COUNT, AUTOMATED 149 10^3/uL (150-450); RED BLOOD COUNT 4.58 10^6/uL (4.30-6.10); RED CELL DISTRIBUTION WIDTH 12.7 % (11.5-14.5); WHITE BLOOD COUNT 6.4 10^3/uL (4.0-10.0)
[2017-09-28] MEDS: MECLIZINE 25 MG TABLET PO (12:02)
[2017-09-28 12:14] LABS: INR 0.96; PROTHROMBIN TIME 12.9 SECONDS (12.1-14.4)
[2017-09-28 12:15] LABS: PARTIAL THROMBOPLASTIN TIME 25.4 SECONDS (25.4-37.6)
[2017-09-28 12:28] LABS: ANION GAP 6 MEQ/L (8-16); BLOOD UREA NITROGEN 11 MG/DL (7-18); CALCIUM LEVEL 8.3 MG/DL (8.8-10.2); CARBON DIOXIDE LEVEL 28 MEQ/L (21-32); CHLORIDE LEVEL 109 MEQ/L (98-107); CPK CREATINE PHOSPHOKINASE 60 U/L (39-308); CREATININE FOR GFR 0.79 MG/DL (0.70-1.30); FREE T4 0.84 NG/DL (0.76-1.46); GLOMERULAR FILTRATION RATE > 60.0 (>42); GLUCOSE, FASTING 97 MG/DL (70-100); MAGNESIUM LEVEL 2.3 MG/DL (1.8-2.4); SODIUM LEVEL 143 MEQ/L (136-145); TROPONIN I < 0.02 NG/ML (< 0.10)
[2017-09-28 12:34] LABS: CK-MB VALUE MASS < 1.0 NG/ML (<3.6); MB/CK RELATIVE INDEX 1.66 (< OR =4)
== END 2017-09-28 14:40 | disposition home or self-care (01) ==
LOC: M ED 11:17
DX: R42 Dizziness and giddiness (principal); I10 Essential (primary) hypertension; F41.9 Anxiety disorder, unspecified; F33.9 Major depressive disorder, recurrent, unspecified; N40.0 Benign prostatic hyperplasia without lower urinary tract symptoms; F10.10 Alcohol abuse, uncomplicated; Z79.899 Other long term (current) drug therapy; Z88.5 Allergy status to narcotic agent
CPT/HCPCS: 71045

== ENCOUNTER → 2017-11-04 | Outpatient (CLI) | payer MEDICARE, BC, OTHER ==
[2017-11-05 00:41] LABS: PROSTATIC SPECIFIC AG MONITOR 1.52 NG/ML (< 4.0)
== END ==
LOC: M SMT 14:00
DX: N40.1 Benign prostatic hyperplasia with lower urinary tract symptoms (principal); Z87.898 Personal history of other specified conditions
CPT/HCPCS: 84153

== ENCOUNTER → 2017-12-10 | Outpatient (REF) | payer MEDICARE, OTHER ==
[2017-12-10 14:05] LABS: BASO % 0.4 % (0.0-1.0); EOS # 0.2 10^3/uL (0.0-0.50); EOS % 2.4 % (0.0-3.0); HEMATOCRIT 45.5 % (42.0-52.0); HEMOGLOBIN 15.7 g/dl (13.5-17.5); IMMATURE GRANULOCYTE % 0.4 % (0-3.0); LYMPH # 1.4 10^3/uL (1.5-4.5); LYMPH % 19.1 % (24.0-44.0); MEAN CORPUSCULAR HEMOGLOBIN 31.3 pg (27.0-33.0); MEAN CORPUSCULAR HGB CONC 34.5 g/dl (32.0-36.5); MEAN CORPUSCULAR VOLUME 90.6 fl (80.0-96.0); MONO # 0.7 10^3/uL (0.0-0.8); NEUTROPHILS # 4.9 10^3/uL (1.8-7.7); NEUTROPHILS % 67.7 % (36.0-66.0); PLATELET COUNT, AUTOMATED 178 10^3/uL (150-450); RED BLOOD COUNT 5.02 10^6/uL (4.30-6.10); RED CELL DISTRIBUTION WIDTH 12.6 % (11.5-14.5); WHITE BLOOD COUNT 7.2 10^3/uL (4.0-10.0)
[2017-12-10 14:43] LABS: ALBUMIN 3.7 GM/DL (3.2-5.2); ALBUMIN/GLOBULIN RATIO 1.19 (1.00-1.93); ALKALINE PHOSPHATASE 46 U/L (45-117); ALT/SGPT 18 U/L (12-78); ANION GAP 8 MEQ/L (8-16); AST/SGOT 11 U/L (7-37); BILIRUBIN,TOTAL 0.3 MG/DL (0.2-1.0); BLOOD UREA NITROGEN 13 MG/DL (7-18); CALCIUM LEVEL 8.8 MG/DL (8.8-10.2); CARBON DIOXIDE LEVEL 30 MEQ/L (21-32); CHLORIDE LEVEL 105 MEQ/L (98-107); CREATININE FOR GFR 0.91 MG/DL (0.70-1.30); GLOMERULAR FILTRATION RATE > 60.0 (>42); GLUCOSE, FASTING 80 MG/DL (70-100); POTASSIUM SERUM 4.5 MEQ/L (3.5-5.1); SODIUM LEVEL 143 MEQ/L (136-145); TOTAL PROTEIN 6.8 GM/DL (6.4-8.2); VALPROIC ACID (DEPAKOTE) 76.5 UG/ML (50.0-100.0)
== END ==
LOC: M LABNEURO 13:41
DX: G40.909 Epilepsy, unspecified, not intractable, without status epilepticus (principal)
CPT/HCPCS: 80164

== ENCOUNTER → 2018-07-08 | Outpatient (REF) | payer MEDICARE, OTHER ==
[~2018-07-08] MED LIST changes: +ARIP1TAB4; +ARIP1TAB4 PO; +BACT800T5 PO; +CARV3.12 PO; +CELE10TA PO; +CIPR-249 PO; +CIPR500T3 PO; +DIVA500T94; +FLOM0.4C39 PO; -FLOM5CAP PO; +KEPP1TAB PO; +MECL-68; +MEMA1TAB PO; +OLAN2.5T25 PO; +TRAN1TAB48; +TRAN1TAB48 PO; -TRAN2TAB8; -TRAN2TAB8 PO
[2018-07-08 18:03] LABS: BASO % 0.4 % (0.0-1.0); EOS # 0.2 10^3/uL (0.0-0.50); EOS % 2.9 % (0.0-3.0); HEMATOCRIT 44.9 % (42.0-52.0); HEMOGLOBIN 15.3 g/dl (13.5-17.5); LYMPH # 1.7 10^3/uL (1.5-4.5); MEAN CORPUSCULAR HEMOGLOBIN 30.2 pg (27.0-33.0); MEAN CORPUSCULAR HGB CONC 34.1 g/dl (32.0-36.5); MEAN CORPUSCULAR VOLUME 88.6 fl (80.0-96.0); MONO # 0.7 10^3/uL (0.0-0.8); MONO % 12.5 % (0.0-5.0); PLATELET COUNT, AUTOMATED 154 10^3/uL (150-450); RED BLOOD COUNT 5.07 10^6/uL (4.30-6.10); WHITE BLOOD COUNT 5.5 10^3/uL (4.0-10.0)
[2018-07-08 18:10] LABS: ALBUMIN 3.6 GM/DL (3.2-5.2); ALT/SGPT 12 U/L (12-78); BILIRUBIN,TOTAL 0.4 MG/DL (0.2-1.0); BLOOD UREA NITROGEN 7 MG/DL (7-18); CALCIUM LEVEL 8.2 MG/DL (8.8-10.2); CARBON DIOXIDE LEVEL 26 MEQ/L (21-32); CHLORIDE LEVEL 103 MEQ/L (98-107); CREATININE FOR GFR 0.73 MG/DL (0.70-1.30); GLOMERULAR FILTRATION RATE > 60.0 (>42); GLUCOSE, FASTING 78 MG/DL (70-100); POTASSIUM SERUM 4.2 MEQ/L (3.5-5.1); SODIUM LEVEL 136 MEQ/L (136-145); TOTAL PROTEIN 7.1 GM/DL (6.4-8.2); VALPROIC ACID (DEPAKOTE) 98.1 UG/ML (50.0-100.0)
== END ==
LOC: M LABNEURO 13:11
PROVIDERS: ATTEND Psychiatry & Neurology Neurology
DX: R56.9 Unspecified convulsions (principal)

== ENCOUNTER → 2018-11-25 | Outpatient (CLI) | payer MEDICARE, OTHER ==
[~2018-11-25] MED LIST changes: +CYAN100049; +CYAN100049 PO; -VITA10002; -VITA10002 PO
== END ==
LOC: M WUC 16:01
PROVIDERS: ATTEND Urology
DX: Z87.898 Personal history of other specified conditions (principal); N40.1 Benign prostatic hyperplasia with lower urinary tract symptoms
CPT/HCPCS: 36415; 84153; G0463

== ENCOUNTER 2019-03-21 07:58 | Inpatient (IN) | payer MEDICARE, BC, OTHER ==
[~2019-03-21] VITALS: Ht 180.3 cm; Wt 125.2 kg
[~2019-03-21 07:58] MED LIST changes: -ARIP1TAB4; -DIVA500T94; +DIVA500T94 PO; -MECL-68; +MECL1TAB31 PO; -MEMA1TAB PO; +MEMA1TAB3 PO; +SERT25TA21; +SERT25TA21 PO; -SERT25TA88; -SERT25TA88 PO
[2019-03-21] MEDS ORDERED: ASPIRIN 81 MG CHEW TABLET PO ONE (08:30)
[2019-03-21] MEDS: METOPROLOL 5 MG/5 ML VIAL IV SCH ×3 (08:34→09:34)
[2019-03-21] MEDS ORDERED: DIGOXIN 0.25 MG TAB PO ONE (08:45)
[2019-03-21 08:47] LABS: BASO % 0.3 % (0.0-1.0); EOS % 0.3 % (0.0-3.0); HEMATOCRIT 50.5 % (42.0-52.0); HEMOGLOBIN 16.5 g/dl (13.5-17.5); LYMPH # 2.1 10^3/uL (1.5-5.0); LYMPH % 19.7 % (24.0-44.0); MEAN CORPUSCULAR HEMOGLOBIN 29.3 pg (27.0-33.0); MEAN CORPUSCULAR HGB CONC 32.7 g/dl (32.0-36.5); MEAN CORPUSCULAR VOLUME 89.5 fl (80.0-96.0); MONO # 1.1 10^3/uL (0.0-0.8); MONO % 10.6 % (0.0-5.0); NEUTROPHILS # 7.2 10^3/uL (1.5-8.5); NEUTROPHILS % 68.9 % (36.0-66.0); PLATELET COUNT, AUTOMATED 194 10^3/uL (150-450); RED BLOOD COUNT 5.64 10^6/uL (4.30-6.10); WHITE BLOOD COUNT 10.4 10^3/uL (4.0-10.0)
[2019-03-21] MEDS ORDERED: CELE10TA PO (08:57)
[2019-03-21] MEDS ORDERED: MEMA1TAB3 PO (08:57)
[2019-03-21] MEDS: HEPARIN SOD (PORCINE) 5000 UNITS/ML VIAL (J1644 PER 1000UNITS) SQ SCH ×2 (09:00→20:18)
[2019-03-21] MEDS ORDERED: ISOVUE-370 76% 100ML VIAL (Q9967) As Ordered ONE (09:13)
[2019-03-21 09:17] LABS: ALBUMIN 3.6 GM/DL (3.2-5.2); ALT/SGPT 20 U/L (12-78); BILIRUBIN,DIRECT < 0.1 MG/DL (0.0-0.2); BILIRUBIN,TOTAL 0.4 MG/DL (0.2-1.0); BLOOD UREA NITROGEN 16 MG/DL (7-18); CALCIUM LEVEL 8.3 MG/DL (8.8-10.2); CARBON DIOXIDE LEVEL 23 MEQ/L (21-32); CHLORIDE LEVEL 112 MEQ/L (98-107); CK-MB VALUE MASS 2.1 NG/ML (<3.6); CPK CREATINE PHOSPHOKINASE 129 U/L (39-308); CREATININE FOR GFR 0.98 MG/DL (0.70-1.30); FREE T4 0.97 NG/DL (0.76-1.46); GLOMERULAR FILTRATION RATE > 60.0 (>42); GLUCOSE, FASTING 99 MG/DL (70-100); LIPASE 173 U/L (73-393); MB/CK RELATIVE INDEX 1.63 (< OR =4); NT-PRO BNP 2764 PG/ML (<125); POTASSIUM SERUM 4.1 MEQ/L (3.5-5.1); SODIUM LEVEL 147 MEQ/L (136-145); TOTAL PROTEIN 6.8 GM/DL (6.4-8.2); TROPONIN I < 0.02 NG/ML (< 0.10)
--- NOTE | 2019-03-21 09:36 | REP ---
AP PORTABLE CHEST: 03/21/2019 COMPARISON: 09/30/2017, 09/28/2017. CLINICAL HISTORY: Chest pain. FINDINGS: AP lordotic portable chest limits evaluation of the posterior lower lung zones. No gross infiltrate, effusion, cardiomegaly or edema. The airway and aorta intact. Some degenerative changes in the shoulders and spine. No free air evident. IMPRESSION: 1. No acute cardiopulmonary change. Limited AP lordotic portable projection. Electronically Signed by Buck Ulrich MD 03/21/2019 07:52 P
[2019-03-21] MEDS ORDERED: LORazepam 2 MG TAB PO PRN (10:00)
[2019-03-21] MEDS ORDERED: METOPROLOL TART 50 MG TAB PO ONE (10:00)
--- NOTE | 2019-03-21 10:03 | REP ---
CT ANGIOGRAM CHEST: 03/21/2019. Comparison: AP chest 03/21/2019, 09/28/2017. Clinical history: Chest pain. Technique: Bolus of 75 mL Isovue 370 scanning through the chest with our pulmonary angiogram protocol and with both coronal and sagittal MIP and standard reformats. Findings: The lung suresh show some dependent atelectatic changes bilaterally. There is no dense consolidation, pleural effusion, pleural plaque or calcified plaque, pulmonary nodule or parenchymal mass. No pneumothorax or pneumomediastinum. Heart size not grossly enlarged. No pericardial thickening or effusion. There are coronary artery calcifications and some atherosclerotic calcifications aortic arch and scattered in the descending aorta without aneurysm or dissection. The main, right and left pulmonary arteries are without filling defects. Central pulmonary arteries are prominent at the hilum on both sides consistent with some degree of pulmonary artery hypertension. The lobar, segmental and visible subsegmental arteries are also without filling defect or vessel cutoff. I see no pathologic sized mediastinal, hilar, axillary or supraclavicular adenopathy. No masses. The bone windows show the sternum, manubrium, medial clavicles, visualized portions of scapulae, humeral heads and ribs without acute finding. Spine shows marginal osteophytes throughout without compression deformity or destructive lesions. Limited evaluation of the upper abdomen shows some eventration right diaphragm, but no hepatosplenomegaly, ascites, hepatic or splenic mass in those visualized segments. No hiatal hernia. No calcified gallstones. There is colonic interposition between the anterior abdominal wall and right lobe of the liver as anatomic variation. That portion of pancreas and gallbladder seen were unremarkable. Impression: 1. No CT evidence for pulmonary embolism. No cardiomegaly, edema, effusion or infiltrate. 2. Some degree of pulmonary artery hypertension with prominent central pulmonary arteries. 3. Some calcifications aorta and coronary arteries, but no aortic aneurysm or dissection. 4. No mediastinal, hilar, axillary, or supraclavicular adenopathy. 5. Bones without acute finding. No upper abdominal significant findings. Electronically Signed by Buck Ulrich MD 03/21/2019 07:53 P
[2019-03-21] MEDS ORDERED: ALPRAZolam 0.25 MG TAB PO PRN (10:30)
[2019-03-21] MEDS ORDERED: MECLIZINE 25 MG TABLET PO PRN (10:30)
[2019-03-21] MEDS: FOLIC ACID 1 MG TAB PO SCH (11:07)
[2019-03-21] MEDS: MULTIVITAMINS/MINERALS THERAP 1 TAB PO SCH (11:07)
[2019-03-21] MEDS: ARIPiprazole 2 MG TAB PO SCH (11:08)
[2019-03-21] MEDS: DIVALPROEX 500 MG TAB PO SCH ×2 (11:08→20:18)
[2019-03-21] MEDS: CYANOCOBALAMIN 500 MCG TAB PO SCH (11:08)
[2019-03-21] MEDS: CitaloPRAM (CeleXA) 10 MG TABLET PO SCH (11:08)
[2019-03-21] MEDS: THIAMINE 100 MG TAB PO SCH ×2 (11:08→20:19)
--- NOTE | 2019-03-21 11:40 | HPEPDOC ---
[facility] Medical History & Physical Date of Admission Mar 21, 2019 Date of Service: Mar 21, 2019 Primary Care Physician: Kadeem Davis Attending Physician: VICENTA PEOPLES MD History and Physical CHIEF COMPLAINT: Chest Pain PRIMARY CARE PROVIDER: CARRIE Nieves HISTORY OF PRESENT ILLNESS: The patient is a 73-year-old male with a past medical history of hypertension, benign prostatic hypertrophy (BPH), anxiety/depression, Heavy alcohol use. Who presented [facility] for chest pain. Clinical indication he went to sleep around 8 AM in his normal state of health, around 12 AM midnight he awoke to substernal chest pain that was nonradiating, on his left side, he was not diaphoretic, he did not remember any episodes of sweating, the chest pain was constant and was accompanied by shortness of breath, dizziness. He attempted to sleep it off, but had no avail. Around 6 AM this morning patient called EMS. He doesn't state that by the time EMS arrived, his chest pain had stopped. However, he'll still experience shortness of breath and dizziness. He denied any new changes in medication, denies any recent travel, denies any weight loss, denied any other chest pain denied abdominal pain, denied significant dysphagia, denied any back or shoulder pain. Of note patient does have a history of heavy alcohol use in the past he had reported 10 [place] a day. He has been sober for last 2 years but recently picked up drinking. He reports that his last drink was about a week ago. However, patient's daughter called independently to the ED and reported that patient's last drink was approximately 2 days ago. Patient confirms that since he started drinking. He has been drinking 9-10 Manhattan stay. (A manhattan is composed of whisky, sweet vermouth, and good on top) On initial presentation, EKG showed atrial flutter with a rate of 156, RVR, and an old inferior MS that was unchanged from previous EKG. He had a mild leukocytosis of 10.4, elevated BNP 2706, including alcohol level of 0.031. Hospitalist team was called for admission with cardiology consultation. Due to patient's atrial flutter, he received digoxin 0.5 mg, metoprolol 5 mg IV, PAST MEDICAL HISTORY: 1. Hypertension. 2. Benign prostatic hypertrophy (BPH). 3. Anxiety/depression. 4. History of alcohol abuse, Had been 2 years sober but recently started drinking again PAST SURGICAL HISTORY: 1. Appendectomy in the . 2. Orchiectomy in 1980. 3. Removal of basal cell carcinoma. SOCIAL HISTORY: The patient denies smoking. Has been sober for the last 2 years after 40 years of heavy drinking. Reports recent heavy alcohol use. He reports 9-10 manhattan's a day. He last drink was 2 day ago.Denies recreational drug use. REVIEW OF SYSTEMS: GENERAL: Denied any fevers, chills. weight loss HEENT: Denies vision changes, CARDIOVASCULAR: Report substernal chest pain, that has resolved RESPIRATORY: Reported shortness of breath, currently on nasal cannula, denies shortness of breath GASTROINTESTINAL: No nausea. No vomiting. No abdominal pain. MUSCULOSKELETAL: no MSK pain PHYSICAL EXAM VITALS: See Below GENERAL APPEARANCE: Alert no acute distress. Obese gentleman wearing nasal cannula SKIN: Warm, well perfused. ENT: Palate intact, Neck supple, no thyromegaly, no carotid bruits LUNGS: Clear to auscultation bilaterally. HEART: Regular rate, tachycardic, no murmurs, no rubs or gallops ABDOMEN: Soft. No masses. Bowel sounds are present, obese abdomen. TRUNK/SPINE:Straight. EXTREMITIES: Moves all extremities equally. No gross deformities. LABORATORY DATA: See Below IMAGING STUDIES: CT Chest:. Impression: 1. No CT evidence for pulmonary embolism. No cardiomegaly, edema, effusion or infiltrate. 2. Some degree of pulmonary artery hypertension with prominent central pulmonary arteries. 3. Some calcifications aorta and coronary arteries, but no aortic aneurysm or dissection. 4. No mediastinal, hilar, axillary, or supraclavicular adenopathy. 5. Bones without acute finding. No upper abdominal significant findings. Chest Xray: IMPRESSION: 1. No acute cardiopulmonary change. Limited AP lordotic portable projection. ASSESSMENT The patient is a 73-year-old male with a past medical history of hypertension, benign prostatic hypertrophy (BPH), anxiety/depression, Heavy alcohol use who presented with chest pain, and SOB. He has found to be in A. futter with RVP. CT chest negative, fist set of troponin negative. Will be admitted for A.flutter and monitored for alcohol redraws. PLAN: Atrial flutter secondary to alcohol withdrawal, secondary to underlying cardiovascular disease, -EKG showed A. Flutter with RVR at a rate of 156 -he received digoxin 0.5 mg, metoprolol 5 mg IV, 50 mg of metoprolol in the ED -TSH within normal limit -Supplemental Oxygen -Will address the alcohol withdrawal as per [facility] protocol -Start 0.125 of digoxin daily -Start 50 mg of metolol tartate q6h -negative troponins will repeat in 6 hours Elevated BNP (2764) -likely secondary to atrial flutter and elevated heart rate, unlikely to be CHF -Last Echo echocardiogram was in 07/12/17 Normal left ventricle (LV) size with mild left ventricular hypertrophy (LVH) and preserved LV systolic and diastolic function. Aortic sclerosis but no stenosis or insufficiency.No further valvular problems.Unable to estimate central venous pressure and pulmonary artery pressure. -Will repeat the echo this admission Hypertension No current medication for hypertension. We'll continue to monitor. Will start patient on antihypertensives as necessary. History of dementia. -Resume home med Anxiety/depression. -Resume home meds History of alcohol abuse. -A 40 year alcoholic history. -.He reports 9-10 manhattan's a day. He last drink was 2 day ago. -[facility] protocol -Surex 30 q6hs Deep vein thrombosis (DVT) prophylaxis. The patient will be on heparin. Vital Signs Vital Signs Date Time Temp Pulse Resp B/P (MAP) Pulse Ox O2 Delivery O2 Flow Rate FiO2 03/21/19 11:16 106/76 (86) 03/21/19 11:08 152 03/21/19 11:05 22 95 Nasal Cannula 3.0 03/21/19 08:00 98.6 Laboratory Data Labs 24H Laboratory Tests 2 03/21/19 08:10: Immature Granulocyte % (Auto) 0.2, Neutrophils (%) (Auto) 68.9H, Lymphocytes (%) (Auto) 19.7L, Monocytes (%) (Auto) 10.6H, Eosinophils (%) (Auto) 0.3, Basophils (%) (Auto) 0.3, Neutrophils # (Auto) 7.2, Lymphocytes # (Auto) 2.1, Monocytes # (Auto) 1.1H, Eosinophils # (Auto) 0.0, Basophils # (Auto) 0.0, Nucleated Red Blood Cells % (auto) 0.0, Anion Gap 12, Glomerular Filtration Rate > 60.0, Calcium Level 8.3L, Total Bilirubin 0.4, Direct Bilirubin < 0.1, Aspartate Amino Transf (AST/SGOT) 20, Alanine Aminotransferase (ALT/SGPT) 20, Alkaline Phosphatase 47, Total Creatine Kinase 129, Creatine Kinase MB 2.1, Creatine Kinase MB Relative Index 1.63, Troponin I < 0.02, UE-Nzu-T-Type Natriuretic Peptide 2764H, Total Protein 6.8, Albumin 3.6, Albumin/Globulin Ratio 1.13, Lipase 173, Thyroid Stimulating Hormone (TSH) 2.250, Free Thyroxine 0.97, Ethyl Alcohol Level 0.031H 03/21/19 08:59: POC Glucose (Misc Panel) 101, POC Sodium (Misc Panel) 145, POC Potassium (Misc Panel) 3.9, POC Chloride (Misc Panel) 107, POC Total CO2 (Misc Panel) 23.0, POC Blood Urea Nitrogen (Misc Panel 17, POC Ionized Calcium (Misc Panel) 4.5, POC Creatinine (Misc Panel) 0.9, POC Hematocrit (Misc Panel) 48.0 CBC/BMP Laboratory Tests 03/21/19 08:10 Microbiology Microbiology 03/21/19 Blood Culture, Received Pending 03/21/19 Blood Culture, Received Pending Home Medications Scheduled Aripiprazole (Aripiprazole) 2 Mg Tab, 2 MG PO DAILY Citalopram Hydrobromide (Celexa) 10 Mg Tablet, 10 MG PO DAILY Cyanocobalamin (Vitamin B-12) (Vitamin B-12) 1,000 Mcg Tab, 1,000 MCG PO DAILY Divalproex Sodium (Divalproex Sodium) 500 Mg Tab, 500 MG PO BID Memantine HCl (Memantine HCl) 5 Mg Tablet, 5 MG PO DAILY Scheduled PRN Alprazolam (Alprazolam) 0.25 Mg Tab, 0.25 MG PO TID PRN for ANXIETY Meclizine HCl (Meclizine HCl) 25 Mg Tab, 25 MG PO Q8H PRN for NAUSEA Allergies Coded Allergies: codeine (Verified Adverse Reaction, Intermediate, hallucinations, 03/21/19) A-FIB/CHADSVASC A-FIB History Current/History of A-Fib/PAF?: No RICO SHULTZ DO Mar 21, 2019 11:40
[2019-03-21] MEDS: MEMANTINE 5MG TABLET (NAMENDA) PO SCH (12:03)
[2019-03-21 12:44] VITALS: BP 114/72
[2019-03-21 14:44] VITALS: BP 128/86
[2019-03-21] MEDS: OXAZEPAM 15 MG CAP PO SCH ×2 (14:46→20:19)
[2019-03-21] MEDS ORDERED: SLF 3 ML SYR IV PRN (15:00)
[2019-03-21 15:19] VITALS: BP 128/86
[2019-03-21] MEDS ORDERED: DIGOXIN INJ 0.5 MG/2 ML AMP (J1160) IV STA (15:31)
[2019-03-21 16:00] VITALS: BP 146/98
--- NOTE | 2019-03-21 16:14 | ECGEPIP ---
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
[2019-03-21] MEDS: METOPROLOL TART 50 MG TAB PO SCH ×2 (17:03→23:40)
[2019-03-21 20:00] VITALS: BP 115/68
[2019-03-21] MEDS: SLF 3 ML SYR IV SCH (21:05)
[2019-03-22] VITALS: BP 123/78
[2019-03-22] MEDS: OXAZEPAM 15 MG CAP PO SCH ×4 (02:00→20:07)
[2019-03-22 04:00] VITALS: BP 116/77
[2019-03-22] MEDS: SLF 3 ML SYR IV SCH ×3 (05:03→21:08)
[2019-03-22] MEDS: METOPROLOL TART 50 MG TAB PO SCH ×4 (05:03→23:58)
[2019-03-22 05:56] LABS: HEMATOCRIT 44.7 % (42.0-52.0); MEAN CORPUSCULAR HEMOGLOBIN 29.1 pg (27.0-33.0); MEAN CORPUSCULAR HGB CONC 32.2 g/dl (32.0-36.5); MEAN CORPUSCULAR VOLUME 90.3 fl (80.0-96.0); PLATELET COUNT, AUTOMATED 141 10^3/uL (150-450); RED BLOOD COUNT 4.95 10^6/uL (4.30-6.10); WHITE BLOOD COUNT 8.3 10^3/uL (4.0-10.0)
[2019-03-22 06:01] LABS: HEMOGLOBIN 14.4 g/dl (13.5-17.5)
[2019-03-22 06:19] LABS: BLOOD UREA NITROGEN 24 MG/DL (7-18); CALCIUM LEVEL 8.7 MG/DL (8.8-10.2); CARBON DIOXIDE LEVEL 31 MEQ/L (21-32); CHLORIDE LEVEL 108 MEQ/L (98-107); CREATININE FOR GFR 0.95 MG/DL (0.70-1.30); GLOMERULAR FILTRATION RATE > 60.0 (>42); GLUCOSE, FASTING 81 MG/DL (70-100); POTASSIUM SERUM 3.5 MEQ/L (3.5-5.1); SODIUM LEVEL 142 MEQ/L (136-145)
[2019-03-22 08:00] VITALS: BP 135/68
[2019-03-22] MEDS: CYANOCOBALAMIN 500 MCG TAB PO SCH (08:03)
[2019-03-22] MEDS: HEPARIN SOD (PORCINE) 5000 UNITS/ML VIAL (J1644 PER 1000UNITS) SQ SCH ×2 (08:03→20:07)
[2019-03-22] MEDS: FOLIC ACID 1 MG TAB PO SCH (08:03)
[2019-03-22] MEDS: MULTIVITAMINS/MINERALS THERAP 1 TAB PO SCH (08:03)
[2019-03-22] MEDS: ARIPiprazole 2 MG TAB PO SCH (08:03)
[2019-03-22] MEDS: CitaloPRAM (CeleXA) 10 MG TABLET PO SCH (08:04)
[2019-03-22] MEDS: THIAMINE 100 MG TAB PO SCH ×2 (08:04→20:07)
[2019-03-22] MEDS: DIVALPROEX 500 MG TAB PO SCH ×2 (08:04→20:07)
[2019-03-22] MEDS: MEMANTINE 5MG TABLET (NAMENDA) PO SCH (08:04)
[2019-03-22] MEDS ORDERED: DIGOXIN INJ 0.5 MG/2 ML AMP (J1160) IV SCH (09:00)
[2019-03-22] MEDS ORDERED: DIGOXIN 0.25 MG TAB PO SCH (09:00)
[2019-03-22] MEDS ORDERED: AMIODARONE HCL 150 MG in IV 1 EA IV STA (09:58)
--- NOTE | 2019-03-22 10:18 | IPNPDOC ---
Text Note Date of Service The patient was seen on 03/22/19. NOTE S: Patient seen and examined at bedside. No acute overnight events reported. Patient has no new medical complaints. Stated he was anxious to return home, but was agreeable to remain in the hospital for medical care. O: General: NAD, lying comfortably in bed HEENT: NC/AT, EOMI Lungs: CTA B/L Heart: +S1S2, tachy, irregularly irregular Abd: obese, soft, NT, +BS Ext: trace edema A/P: 73-year-old male with PMHx, HTN, BPH, EtOH abuse, anxiety/depression, presents for chest pain, found to be in a-flutter. #a flutter - likely exacerbated by alcohol abuse, possible underlying CV disease - continue with dig/BB - d/w cardiology - assistance appreciated - consultation pending - adding amiodarone - echo pending #EtOH abuse - patient has history of alcohol abuse, states he has been clean for 2 years, but started drinking again last week - states his last drink was last week - family states he has been drinking daily up until his admission - [facility] protocol - Serax 30 q6h #falls - PT/OT when improved rate control Atrial flutter secondary to alcohol withdrawal, secondary to underlying cardiovascular disease, -EKG showed A. Flutter with RVR at a rate of 156 -he received digoxin 0.5 mg, metoprolol 5 mg IV, 50 mg of metoprolol in the ED -TSH within normal limit -Supplemental Oxygen -Will address the alcohol withdrawal as per [facility] protocol -Start 0.125 of digoxin daily -Start 50 mg of metolol tartate q6h -negative troponins will repeat in 6 hours #HTN - continue to follow clinically - not on home meds #dementia. -Resume home med #Anxiety/depression. -Resume home meds #DVT prophylaxis - heparin SC VS,Fishbone, I+O VS, Fishbone, I+O Laboratory Tests 03/22/19 05:26 Vital Signs Date Time Temp Pulse Resp B/P (MAP) Pulse Ox O2 Delivery O2 Flow Rate FiO2 03/22/19 08:03 115 03/22/19 08:00 98.7 18 135/68 (90) 92 03/22/19 04:00 Room Air 1/25/20 12:44 2.0 I&O- Last 24 Hours up to 6 AM 03/22/19 06:00 Intake Total 600 ml Output Total 425 ml Balance 175 ml VICENTA PEOPLES MD Mar 22, 2019 10:18
--- NOTE | 2019-03-22 11:11 | ECGEPIP ---
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
[2019-03-22 12:00] VITALS: BP 143/96
[2019-03-22 16:00] VITALS: BP 142/68
[2019-03-22 20:00] VITALS: BP 164/90
[2019-03-23] VITALS: BP 118/78
[2019-03-23] MEDS ORDERED: IPRATROPIUM 0.5MG/ALBUTEROL 2.5MG INH SOL UD 3ML (DUONEB)(J7620) NEB ONE (01:15)
[2019-03-23] MEDS: OXAZEPAM 15 MG CAP PO SCH ×4 (01:21→20:33)
[2019-03-23 04:00] VITALS: BP 122/80
[2019-03-23 05:56] LABS: HEMATOCRIT 42.1 % (42.0-52.0); MEAN CORPUSCULAR HEMOGLOBIN 30.1 pg (27.0-33.0); MEAN CORPUSCULAR HGB CONC 33.3 g/dl (32.0-36.5); MEAN CORPUSCULAR VOLUME 90.5 fl (80.0-96.0); PLATELET COUNT, AUTOMATED 140 10^3/uL (150-450); RED BLOOD COUNT 4.65 10^6/uL (4.30-6.10); WHITE BLOOD COUNT 5.7 10^3/uL (4.0-10.0)
[2019-03-23] MEDS: METOPROLOL TART 50 MG TAB PO SCH ×4 (05:56→23:47)
[2019-03-23] MEDS: SLF 3 ML SYR IV SCH ×3 (05:56→20:36)
[2019-03-23 06:09] LABS: BLOOD UREA NITROGEN 17 MG/DL (7-18); CALCIUM LEVEL 8.2 MG/DL (8.8-10.2); CARBON DIOXIDE LEVEL 30 MEQ/L (21-32); CHLORIDE LEVEL 108 MEQ/L (98-107); CREATININE FOR GFR 0.91 MG/DL (0.70-1.30); GLOMERULAR FILTRATION RATE > 60.0 (>42); GLUCOSE, FASTING 87 MG/DL (70-100); POTASSIUM SERUM 3.7 MEQ/L (3.5-5.1); SODIUM LEVEL 144 MEQ/L (136-145)
--- NOTE | 2019-03-23 07:41 | ECHO ---
DATE OF STUDY: 03/21/2019 DATE OF : 1945 AGE: 73 GENDER: Male. HEIGHT: 71 inches. WEIGHT: 235 pounds. BODY SURFACE AREA: 2.26 m2 INPATIENT: U - Room 3226 REFERRING PHYSICIAN: Dr. Jake Hutchins INDICATION: Atrial flutter. MEASUREMENTS: 2-D Measurements: RV: 4.4 cm LV: 4.2 cm Septum: 1.2 cm Posterior wall: 1.2 cm Aortic root: 3.9 cm LA: 4.0 cm LVEF: 60% Doppler Measurements: AV: 1.6 m/s LVOT: 0.94 m/s LVOT diameter: 2.2 cm MV - E 89 Early mitral deceleration time: 148 ms E prime medial: 13.8 E prime lateral: 14.2 Average E/E prime ratio: 5.7/PCWP: 9 mmHg PV: 0.8 m/s Pulmonary artery acceleration time: 106 ms RVSP: 40-45 mmHg IVC: 1.7 cm COMMENTS: Underlying atrial flutter with somewhat rapid ventricular response. Still averaging 140-150 BPM. Technically difficult study in light of the patient's body habitus and mental status, but some diagnostic useful information was still obtained. Borderline concentric left ventricle hypertrophy with fairly normal wall motion despite his tachyarrhythmia. Borderline left atrial enlargement with currently normal estimated mean left atrial pressure. At least mildly dilated right heart chambers with normal wall motion and Doppler evidence of at least moderate pulmonary hypertension. Normal IVC size and collapse against an elevated central venous pressure. Slightly thickened aortic cusps with adequate cusp separation. No apparent functional valvular abnormality. Borderline dilated aortic root. Normal appearing and functioning mitral valvular apparatus. Normal appearing tricuspid valve with at least mild insufficiency. No apparent intracardiac mass, but this was difficult. No pericardial effusion.
[2019-03-23 08:00] VITALS: BP 110/90
[2019-03-23] MEDS: THIAMINE 100 MG TAB PO SCH ×2 (09:27→20:33)
[2019-03-23] MEDS: MULTIVITAMINS/MINERALS THERAP 1 TAB PO SCH (09:27)
[2019-03-23] MEDS: APIXABAN 5 MG TAB (ELIQUIS) PO SCH ×2 (09:28→20:33)
[2019-03-23] MEDS: CYANOCOBALAMIN 500 MCG TAB PO SCH (09:28)
[2019-03-23] MEDS: DIGOXIN 0.125 MG TAB PO SCH (09:28)
[2019-03-23] MEDS: AMIODARONE 200 MG TAB (PACERONE) PO SCH ×4 (09:29→20:33)
[2019-03-23] MEDS: MEMANTINE 5MG TABLET (NAMENDA) PO SCH (09:29)
[2019-03-23] MEDS: FOLIC ACID 1 MG TAB PO SCH (09:29)
[2019-03-23] MEDS: DIVALPROEX 500 MG TAB PO SCH ×2 (09:30→20:33)
[2019-03-23] MEDS: CitaloPRAM (CeleXA) 10 MG TABLET PO SCH (09:30)
[2019-03-23] MEDS: ARIPiprazole 2 MG TAB PO SCH (09:30)
--- NOTE | 2019-03-23 09:30 | IPNPDOC ---
Text Note Date of Service The patient was seen on 03/23/19. NOTE S: He was examined at bedside no acutre complains. He had no overnigth activities O: General: NAD, pleasant HEENT: NC/AT, EOMI Lungs: CTA B/L Heart: +S1S2, tachy, irregularly irregular Ext: trace edema A/P: 73-year-old male with PMHx, HTN, BPH, EtOH abuse, anxiety/depression, presents for chest pain, found to be in a-flutter. # Atrial flutter secondary to alcohol withdrawal, secondary to underlying cardiovascular disease, -EKG showed A. Flutter with RVR at a rate of 156 on presentation -Cardiology consult -Digoxin decrease to 0.125 daily (03/23/19) -Started on amiodarone 200 QID (03/23/19) -Started eliquis 5 mg BID (03/23/19) -Continue Metoprolol 50 mg Q6H -Negative troponins #Suicidal ideation -Psychiatry consultation -One on one sitter #EtOH abuse - patient has history of alcohol abuse, states he has been clean for 2 years, but started drinking again last week - states his last drink was last week - family states he has been drinking daily up until his admission - [facility] protocol - Serax 30 q6h #Falls - PT/OT when improved rate control #Heavy Alcohol use -[facility] protocol -Serax #HTN - continue to follow clinically - not on home meds #dementia. -Resume home med #Anxiety/depression. -Resume home meds #DVT prophylaxis - eliquis VS,Fishbone, I+O VS, Fishbone, I+O Laboratory Tests 03/23/19 05:22 Vital Signs Date Time Temp Pulse Resp B/P (MAP) Pulse Ox O2 Delivery O2 Flow Rate FiO2 03/23/19 05:56 110 132/75 03/23/19 04:00 97.6 20 96 Nasal Cannula 2.0 I&O- Last 24 Hours up to 6 AM 03/23/19 06:00 Intake Total 1420 ml Output Total 650 ml Balance 770 ml RICO SHULTZ DO Mar 23, 2019 07:34
[2019-03-23 12:00] VITALS: BP 113/65
--- NOTE | 2019-03-23 15:08 | MHCRPDOC ---
[facility] Consultation Consultation Consult Robert Brooks MRN: N/A Date of : N/A Date of Service: 03/23/2019 Chief Complaint Consultation for suicidal ideation. History of Present Illness The patient a 73-year-old man with no significant past psychiatric history presents to [facility] for significant alcohol withdrawal concerns after becoming intoxicated on alcohol, relapsing after 2 years of sobreity. The patient is met with as he reported suicidal thoughts with no plan or intention but reported significant depression, lost of intertest, low mood and concentration and focus problems. Additionally, he has been worked up for dementia, however, reports that his memory problems began after his depression started with short term memory.He reported that his mood subsequently became worse after the loss of his to cancer. The patient at times does demonstrate failure to persist related cognitive problems, frequently deferring to his daughter. Review Of Systems Depression: As above. Anxiety: The patient denies any excessive worry associated with physical symptoms. They deny any experience of discreet panic in the past. Agnieszka: The patient denies any episodes of euphoria/dysphoria associated with decreased need for sleep, hedonism, talkatively or impulsivity lasting longer than 5 days. Psychotic: The patient denies any experiences of auditory or visual hallucinations. They deny any episodes of paranoia or delusional thinking in the past Trauma: The patient denies any traumatic events associated with nightmares or intrusive thoughts. Borderline: The patient screens negative for borderline personality at this junction. Past Psychiatric History The patient denies any history of admission. Reports being tried on some medication as daughter had take him to a doctor. He is on Abilify and Family Psychiatric History The patient denies/is unaware any history of mental health history including addictions and suicide. Social History Patient previously had been employed but is now retired. He reported that he had been to his for 45 years reports living in a large house but feels quite lonely after his had . He reports his daughter and son are quite supportive of him and are his primary social support. Report significant alcohol use in the past but had sober for 2 years prior subsequently drinking for many years prior. Denies tobacco, cannabis, opioid, or other illicit drug use. Medical History Has a history of heart problems and is currently being worked up. Allergies See below Mental Status Examination General: Fair hygiene. Speech: monotonous Thought processes: Linear and logical MSK: Smooth and coordinated gait, no signs of tremors or involuntary orofacial movements Thought content: Severe hopelessness. Abstract reasoning, and computation: Intact Description of associations: Intact Description of abnormal or psychotic thoughts: Admits to suicidal thoughts with no plan. Reports that he would never end his life because of his restoration believe. Judgment: fair Insight: Impaired. Orientation: Alert and orientated 3 Cognition: Grossly normal Recent and remote memory: Intact Attention span and concentration: Fair Fund of knowledge: Appears sufficient Mood: "bad" Affect: severely dysthymic with a constricted range. Diagnoses Unspecified depressive disorder likely cognitive changes, likely unsure if dementia related to Alzheimer's or other disorders and signs and symptoms are consistent with depression related problems. Alcohol use disorder, severe. Assessment and Plan Patient a 73-year-old man with likely significant depression presents for alco hol relapse. He has significant depression after his passed. His symptoms of memory loss can be related to depression more often with cognitive deficits and depression then . I would recommend again Xanax at this time as on the beers list and is not helpful. At this time, he is not medically stable as cardiology is still attempting to stabilize his atrial fibrillation and thus he will need probably a reevaluation prior to any potential inpatient admission. Would recommend continuing on 1 to 1 sitter for safety and re-consulting this provider when the patient's final disposition tentatively to [facility] Disposition Tentatively [facility] if no improvement. Time Spent 30 mins Saturday Vital Signs Vital Signs Date Time Temp Pulse Resp B/P (MAP) Pulse Ox O2 Delivery O2 Flow Rate FiO2 03/23/19 12:18 87 113/65 03/23/19 12:00 97.8 18 95 Room Air 03/23/19 09:43 2.0 Laboratory Data 24H Labs Laboratory Tests 2 03/23/19 05:22: Nucleated Red Blood Cells % (auto) 0.0, Anion Gap 6L, Glomerular Filtration Rate > 60.0, Calcium Level 8.2L Home Medications Current Medications Current Medications Medications (Trade) Dose Ordered Sig/Leila Route PRN Reason Start Time Stop Time Status Last Admin Dose Admin Alprazolam (Xanax) 0.25 mg TID PRN PO ANXIETY 03/21/19 10:30 03/22/19 09:58 DC Amiodarone HCl (Pacerone, Cordarone) 200 mg QID PO 03/23/19 09:00 03/23/19 12:18 Amiodarone HCl 150 mg/IV Miscellaneous Supplies 100 ml @ 600 mls/hr STAT STAT IV 03/22/19 09:58 03/22/19 10:07 DC 03/22/19 10:14 Apixaban (Eliquis) 5 mg BID PO 03/23/19 09:00 03/23/19 09:28 Aripiprazole (AbiLIFY) 2 mg DAILY PO 03/21/19 09:00 03/23/19 09:30 Citalopram Hydrobromide (CeleXA) 10 mg DAILY PO 03/21/19 09:00 03/23/19 09:30 Cyanocobalamin (Vitamin B12) 1,000 mcg DAILY PO 03/21/19 09:00 03/23/19 09:28 Digoxin (Lanoxin) 0.125 mg DAILY IV 03/22/19 09:00 03/22/19 07:19 DC Digoxin (Lanoxin) 0.125 mg DAILY PO 03/23/19 09:00 03/23/19 09:28 Digoxin (Lanoxin) 0.125 mg STAT STAT IV 03/21/19 15:31 03/21/19 15:32 DC 03/21/19 15:38 Digoxin (Lanoxin) 0.25 mg DAILY PO 03/22/19 09:00 03/23/19 08:13 DC 03/22/19 08:03 Divalproex Sodium (Depakote) 500 mg BID PO 03/21/19 09:00 03/23/19 09:30 Folic Acid (Folic Acid) 1 mg DAILY PO 03/21/19 09:00 03/23/19 09:29 Heparin Sodium (Porcine) (Heparin) 5,000 units Q12H SQ 03/21/19 09:00 03/23/19 08:14 DC 03/22/19 20:07 Lorazepam (Ativan) 2 mg ASDIRECTED PRN PO SEE PROTOCOL 03/21/19 10:00 Meclizine HCl (Antivert) 25 mg Q8H PRN PO NAUSEA 03/21/19 10:30 Memantine (Namenda) 5 mg DAILY PO 03/21/19 09:00 03/23/19 09:29 Metoprolol Tartrate (Lopressor) 5 mg Q5M IV 03/21/19 08:30 03/21/19 08:41 DC 03/21/19 09:34 Metoprolol Tartrate (Lopressor) 50 mg Q6H PO 03/21/19 18:00 03/23/19 12:18 Multivitamins (Theragram-M) 1 tab DAILY PO 03/21/19 09:00 03/23/19 09:27 Oxazepam (Serax) 30 mg Q6H PO 03/21/19 14:00 03/23/19 09:29 Sodium Chloride (Saline Lock Flush) 2 ml ASDIRECTED PRN IV SEE LABEL COMMENTS 03/21/19 15:00 Sodium Chloride (Saline Lock Flush) 2 ml SLF IV 03/21/19 22:00 03/23/19 14:24 Thiamine HCl (Thiamine HCl) 100 mg BID PO 03/21/19 09:00 03/24/19 08:59 03/23/19 09:27 Scheduled Aripiprazole (Aripiprazole) 2 Mg Tab, 2 MG PO DAILY, (Reported) Citalopram Hydrobromide (Celexa) 10 Mg Tablet, 10 MG PO DAILY, (Reported) Cyanocobalamin (Vitamin B-12) (Vitamin B-12) 1,000 Mcg Tab, 1,000 MCG PO DAILY, (Reported) Divalproex Sodium (Divalproex Sodium) 500 Mg Tab, 500 MG PO BID, (Reported) Memantine HCl (Memantine HCl) 5 Mg Tablet, 5 MG PO DAILY, (Reported) Scheduled PRN Alprazolam (Alprazolam) 0.25 Mg Tab, 0.25 MG PO TID PRN for ANXIETY, (Reported) Meclizine HCl (Meclizine HCl) 25 Mg Tab, 25 MG PO Q8H PRN for NAUSEA, (Reported) Allergies Coded Allergies: codeine (Verified Adverse Reaction, Intermediate, hallucinations, 03/21/19) ANNE MCCLURE DO Mar 23, 2019 15:08
[2019-03-23 16:00] VITALS: BP 133/75
[2019-03-23 20:00] VITALS: BP 104/69
[2019-03-24] VITALS (7 sets, daily range): BP systolic 95–133; BP diastolic 52–97
[2019-03-24] MEDS: OXAZEPAM 15 MG CAP PO SCH ×4 (02:00→20:06)
[2019-03-24] MEDS: SLF 3 ML SYR IV SCH ×3 (05:16→20:08)
[2019-03-24] MEDS: METOPROLOL TART 50 MG TAB PO SCH ×3 (05:16→17:52)
[2019-03-24 05:35] LABS: HEMATOCRIT 41.7 % (42.0-52.0); MEAN CORPUSCULAR HEMOGLOBIN 29.9 pg (27.0-33.0); MEAN CORPUSCULAR HGB CONC 33.6 g/dl (32.0-36.5); MEAN CORPUSCULAR VOLUME 89.1 fl (80.0-96.0); PLATELET COUNT, AUTOMATED 143 10^3/uL (150-450); RED BLOOD COUNT 4.68 10^6/uL (4.30-6.10); WHITE BLOOD COUNT 5.7 10^3/uL (4.0-10.0)
[2019-03-24 06:00] LABS: BLOOD UREA NITROGEN 15 MG/DL (7-18); CALCIUM LEVEL 7.8 MG/DL (8.8-10.2); CARBON DIOXIDE LEVEL 31 MEQ/L (21-32); CHLORIDE LEVEL 110 MEQ/L (98-107); CREATININE FOR GFR 0.76 MG/DL (0.70-1.30); GLOMERULAR FILTRATION RATE > 60.0 (>42); GLUCOSE, FASTING 87 MG/DL (70-100); POTASSIUM SERUM 3.9 MEQ/L (3.5-5.1); SODIUM LEVEL 143 MEQ/L (136-145)
[2019-03-24] MEDS: FOLIC ACID 1 MG TAB PO SCH (08:38)
[2019-03-24] MEDS: APIXABAN 5 MG TAB (ELIQUIS) PO SCH ×2 (08:38→20:06)
[2019-03-24] MEDS: MULTIVITAMINS/MINERALS THERAP 1 TAB PO SCH (08:38)
[2019-03-24] MEDS: MEMANTINE 5MG TABLET (NAMENDA) PO SCH (08:38)
[2019-03-24] MEDS: ARIPiprazole 2 MG TAB PO SCH (08:38)
[2019-03-24] MEDS: CYANOCOBALAMIN 500 MCG TAB PO SCH (08:38)
[2019-03-24] MEDS: DIGOXIN 0.125 MG TAB PO SCH (08:39)
[2019-03-24] MEDS: AMIODARONE 200 MG TAB (PACERONE) PO SCH ×4 (08:39→20:06)
[2019-03-24] MEDS: CitaloPRAM (CeleXA) 10 MG TABLET PO SCH (08:39)
[2019-03-24] MEDS: DIVALPROEX 500 MG TAB PO SCH ×2 (09:25→20:07)
--- NOTE | 2019-03-24 10:25 | IPNPDOC ---
Text Note Date of Service The patient was seen on 03/24/19. NOTE S: Patient was examined at that site, denied any pain, and no overnight activities. Vitals remained stable. He was evaluated by psychiatry yesterday for severe depression. Patient will likely need to be discharged to inpatient mental health unit. Patient's agreeable plan. O: General: NAD, pleasant HEENT: NC/AT, EOMI Lungs: CTA B/L ABD: Soft, nontender, bowel sounds present in 4 quadrants, SKIN: No bruising, no bleeding. Heart: +S1S2, no murmurs, no rubs, no gallops Ext: trace edema A/P: 73-year-old male with PMHx, HTN, BPH, EtOH abuse, anxiety/depression, presents for chest pain, found to be in a-flutter. # Atrial flutter secondary to alcohol withdrawal, secondary to underlying cardiovascular disease, -EKG showed A. Flutter with RVR at a rate of 156 on presentation -Cardiology consult -Digoxin decrease to 0.125 daily (03/23/19) -Started on amiodarone 200 QID (03/23/19) -Started eliquis 5 mg BID (03/23/19) -Continue Metoprolol 50 mg Q6H -Negative troponins ECHO: EF of 60% #Suicidal ideation -Psychiatry consultation -One on one sitter -Will need inpatient IMHU after discharge, he is agreeable to this plan #EtOH abuse - patient has history of alcohol abuse, states he has been clean for 2 years, but started drinking again last week - states his last drink was last week - family states he has been drinking daily up until his admission - CIWA protocol - Serax 30 q6h #Falls -ET and OT evaluation ordered #Heavy Alcohol use -CIWA protocol -Serax #HTN - continue to follow clinically - not on home meds #dementia. -Resume home med #Anxiety/depression. -Resume home meds #DVT prophylaxis - eliquis VS,Fishbone, I+O VS, Fishbone, I+O Laboratory Tests 03/24/19 05:11 Vital Signs Date Time Temp Pulse Resp B/P (MAP) Pulse Ox O2 Delivery O2 Flow Rate FiO2 03/24/19 07:26 97.7 74 18 124/91 (102) 94 Room Air 03/23/19 09:43 2.0 I&O- Last 24 Hours up to 6 AM 03/24/19 06:00 Intake Total 600 ml Output Total 1120 ml Balance -520 ml RICO SHULTZ DO Mar 24, 2019 08:36
--- NOTE | 2019-03-24 10:42 | CR ---
DATE OF CONSULTATION: 03/23/2019 REQUESTING PHYSICIAN: Dr. Jake Hutchins REASON FOR CONSULTATION: Atrial flutter. HISTORY OF PRESENT ILLNESS: Patient is a 73-year-old male who presented to the hospital on 03/21/2019 complaining of 3-4 hours of chest pain. The patient states that he had been sober for over 2 years and before starting drinking again last Saturday, the patient said he had about a quart of [place] and a half quart of [facility] overnight on Saturday and woke up with substernal chest pain that was nonradiating on his left side. The patient was not diaphoretic and he does not remember any episodes of the chest pain migrating anywhere. He says he may have had some belching with this pain with acid reflux, but he cannot fully remember. The patient was brought to the emergency room where he was found to be in atrial flutter with a heart rate in the 150s. The patient had negative troponins and was admitted into the hospital for further monitoring and evaluation. In talking with the patient today, the patient says he feels much better than he did over the last few days and does not have any complaints of pain at this time. The patient's heart rate has been better controlled in the 100s to 110s on digoxin 0.25 mg once a day and metoprolol tartrate 50 mg four times a day. Patient says he is able to walk around his house but does not go out very much especially during the winter months. Patient lives alone. PAST MEDICAL HISTORY: 1. Hypertension. 2. Benign prostatic hypertrophy (BPH). 3. Anxiety and depression. 4. History of alcohol abuse, has been 2 years sober, recently drinking. PAST SURGICAL HISTORY: 1. Appendectomy. 2. Orchiectomy. 3. Removal of basal cell carcinoma. SOCIAL HISTORY: Patient denies smoking. The patient has been sober the last 2 years after 40 years of heavy drinking and reports recent heavy alcohol use. 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 CURRENT INPATIENT MEDICATIONS: - digoxin 0.25 mg daily - metoprolol tartrate 50 mg every 6 hours - oxazepam 30 mg every 6 hours - meclizine 25 mg every 8 hours as needed - thiamine 100 mg twice a day - folic acid 1 mg daily - multivitamin one tablet daily - aripiprazole 2 mg daily - Celexa 10 mg daily - vitamin B12 1000 mcg daily - Depakote 500 mg twice a day - Namenda 5 mg daily ALLERGIES: Codeine (Hallucinations), CARDIAC TESTING: EKG performed on 03/22/2019 showed atrial flutter with a ventricular rate of 124. Nonspecific ST T wave changes. There is early R-wave progression and a persistent S wave in the precordial leads. Echocardiogram performed on 03/21/2019 showed: Underlying atrial flutter with somewhat rapid ventricular response. Still averaging 140-150 BPM. Technically difficult study in light of the patient's body habitus and mental status, but some diagnostic useful information was still obtained. Borderline concentric left ventricle hypertrophy with fairly normal wall motion despite his tachyarrhythmia. Borderline left atrial enlargement with currently normal estimated mean left atrial pressure. At least mildly dilated right heart chambers with normal wall motion and Doppler evidence of at least moderate pulmonary hypertension. Normal IVC size and collapse against an elevated central venous pressure. Slightly thickened aortic cusps with adequate cusp separation. No apparent functional valvular abnormality. Borderline dilated aortic root. Normal appearing and functioning mitral valvular apparatus. Normal appearing tricuspid valve with at least mild insufficiency. No apparent intracardiac mass, but this was difficult. REVIEW OF SYSTEMS: GENERAL: Patient denies fevers, chills, weight loss or night sweats. HEENT: Patient denies headaches or changes in vision. CARDIOVASCULAR: Patient denies any chest pain or palpitations. RESPIRATORY: Patient denies any shortness of breath (SOB) or cough. GASTROINTESTINAL (GI): Patient denies any nausea, vomiting or diarrhea. The patient has had a normal bowel movement since being in the hospital. GENITOURINARY (): Patient denies any pain or difficulty with urination. EXTREMITIES: Patient denies any swelling in his legs. NEUROLOGIC: The patient does endorse chronic paresthesias of his toes bilaterally. SKIN: Patient denies any rashes or lesions or wounds on the skin. HEMATOLOGIC: Patient denies any easy bruising. LYMPHATICS: The patient denies any lumps or bumps in his neck, axilla or groin. PHYSICAL EXAMINATION: VITALS: Temperature 97.6, pulse 110, respiratory rate 20, blood pressure 132/75, pulse oximetry 96% on 2 liters of oxygen via nasal cannula. GENERAL: Patient is an alert and oriented obese male patient who is laying in bed with nasal cannula oxygen in place. The patient did not appear to be in any acute distress. Patient was able to answer questions appropriately. HEENT: Normocephalic, atraumatic with anicteric sclera. The patient did have moist mucous membranes. NECK: 4 cm of jugular venous distention (JVD). Neck was supple with no lymphadenopathy or thyromegaly. No carotid bruits. CARDIOVASCULAR: Patient has a tachycardic rate with an irregularly irregular rhythm with no murmurs auscultated. Heart sounds were distant. S1 cannot be auscultated in the aortic area. A faint S1 and S2 are able to be auscultated any other areas. RESPIRATORY: Clear to auscultation bilaterally. It was tympanic to percussion of the posterior lung field bilaterally. ABDOMEN: Soft, nontender with no organomegaly. Normal active bowel sounds were present. EXTREMITIES: There was no evidence of edema. Radial and dorsalis pedis pulses were 2/4 bilaterally. NEUROLOGICAL: Patient was alert and oriented and was able to answer questions appropriately. The patient was able to move his extremities upon command, was able to sit up in bed and then go back to laying down. SKIN: There was no evidence of rash or lesion. There was a few bruises around venipuncture sites in the upper extremities. LABORATORIES: White blood cell 5.7, high grade 14.0, hematocrit 42.1, platelet count 140. Sodium 144, potassium 3.7, chloride 108, carbon dioxide 30, BUN 17, creatinine 0.91, glucose 87, calcium 8.2. The patient had a CT angiography of the chest performed on 03/21/2019 which was reported as no CT evidence of pulmonary embolism (PE). No cardiomegaly, edema, effusion or infiltrate seen. Some degree of pulmonary artery hypertension with prominent central pulmonary arteries. Some calcifications in the aorta and coronary arteries, but no aortic aneurysm or dissection. No mediastinal, hilar, axillary or subclavicular adenopathy. Bones without acute findings. No upper abdominal significant findings. A chest x-ray from 03/21/2019 was reported as no acute cardiopulmonary change. Limited AP lordotic portable projection. ASSESSMENT/PLAN: Patient is a 73-year-old male who presented to the emergency room with chest pain and was found to be in atrial flutter. The patient still remains in atrial flutter at this time, however his rate is better controlled. 1. Chest pain. Patient's chest pain is resolved at this time. Patient's chest pain lasted about 3-4 hours and resolved on its own. Patient did not have an elevation of troponins during that time. Patient's chest pain may be secondary to the atrial flutter or noncardiac causes. Based on the lack of elevation of troponins, the chest pain was not ischemic in nature however, the patient does need a full cardiac workup due to his risk factors of male patient, age of 73 years, long-standing hypertension. 2. Atrial flutter. This is most likely secondary to the patient's acute alcohol use. At this time, the patient still remains in atrial flutter. The patient's medications have been changed to amiodarone 200 mg four times a day, digoxin 0.125 mg daily, which is decreased from the 0.25 mg. The patient will remain on metoprolol tartrate 50 mg every 6 hours, Eliquis 5 mg twice a day has been added to the patient and his heparin has been discontinued. At this time we will continue to monitor the patient as his heart rate is still elevated, however this is still better controlled than it has been in the past. Echocardiogram as mentioned above.. 3. Heart failure, unspecified. Based on physical exam, the patient does appear to be volume overloaded. Right-sided heart failure secondary to untreated obstructive sleep apnea. Patient should have a nocturnal oximetry study performed during his hospitalization and should be worked up outpatient with a formal sleep study for possible obstructive sleep apnea. Patient is volume overloaded however, because his blood pressures have been low, diuresis may not be indicated at this time. Low-sodium diet and fluid restriction maybe almost required to treat his fluid overloaded state. 4. Abnormal EKG. Patient's EKG showed atrial flutter with nonspecific ST changes. Patient also had early R-wave progression. 5. Hypertensive heart disease (benign). Patient has had long-standing hypertension and has been shown to have diastolic dysfunction on echocardiogram. At this time, we will continue to monitor the patient with telemetry and try to get the patient up and moving around. We will see how he does with the medication changes to see if this is able to better control his heart rate and I had a conversation with the patient about alcohol use. I congratulated him on being 2 years sober and talked to him about the fact that relapses are common and they happen, and as long as the patient continues to try to take it day by day and abstain from alcohol on each one of those days that hopefully this atrial flutter will be able to be controlled with the medications. We thank you for this consult and appreciate being able to help care for this patient. We will follow along with you. LISA
--- NOTE | 2019-03-24 18:26 | IPN ---
DATE: 03/24/2019 CARDIOLOGY PROGRESS NOTE: SUBJECTIVE: The patient is a 73-year-old male who presented to the hospital on Saturday03/21/2019 complaining of 3-4 hours of chest pain. The patient says that he is feeling much better today. At about 11:00 a.m. this morning, he spontaneously converted to normal sinus rhythm. The patient says he is feeling much better and is asking when he can get out of here. He does not have any acute complaints at this time. He says he wants to go home. PHYSICAL EXAMINATION: VITAL SIGNS: Temperature 97.7, pulse 74, respiratory rate 18, blood pressure 124/97, pulse oximetry 95% on room air. GENERAL: The patient is an alert and oriented male patient who was sitting on the side of the bed when I walked into the room. The patient did not appear to be in any acute distress. HEENT: Normocephalic, atraumatic with anicteric sclerae. The patient did have moist mucous membranes. NECK: 2-3 cm of jugular venous distention was present when the patient was lying at 30 degrees. Neck was supple with no lymphadenopathy. CARDIOVASCULAR: The patient was in a regular rate and rhythm. Heart sounds were distant and quiet. S1 was difficult to auscultate in the aortic area. A faint S1, S2 were auscultated in the other areas. There were no audible murmurs. RESPIRATORY: Clear to auscultation bilaterally. ABDOMEN: Soft, nontender with no organomegaly. EXTREMITIES: There was trace edema around the ankles. There was no sacral edema present. LABORATORY DATA: A CBC shows white blood cells 5.7, hemoglobin 14.0, hematocrit 41.7, platelet count 143. Sodium was 143, potassium 3.9, chloride 110, carbon dioxide 31, BUN 15, creatinine 0.76, glucose 87, calcium 7.8. ASSESSMENT AND PLAN: The patient is a 73-year-old male who presented to the emergency department with chest pain and was found to be in atrial flutter. 1. Chest pain. The patient's chest pain has resolved. The patient should have a full cardiac workup for coronary artery disease as the patient has risk factors such as male patient, older age, and longstanding hypertension. The patient's chest pain did not appear to be ischemic since the patient's troponins were negative the entire time he was having chest pain and after chest pain. 2. Atrial flutter. The patient's atrial flutter spontaneously converted at about 11:00 this morning. We will continue to monitor on telemetry. The patient will continue amiodarone 200 mg four times a day, digoxin 0.125 mg daily, and metoprolol tartrate 50 mg every six hours with hold parameters for a heart rate less than 55. The patient is also on Eliquis 5 mg twice a day. We will continue to monitor the patient. 3. Heart failure, unspecified. The patient's fluid overload state appears to be better today and we will continue to monitor. 4. Abnormal EKG. The patient will be getting another EKG since he is now in sinus rhythm to further evaluate any rhythm disturbances. 5. Hypertensive heart disease (benign). The patient has longstanding hypertension. The patient was shown to have concentric left ventricular hypertrophy with fairly normal wall motion despite the tachyarrhythmia he was in. We will continue to monitor the patient. Continue to give him a loading dose of amiodarone and continue to monitor the patient on telemetry to assure that he continues in sinus rhythm and does not reconvert back to atrial flutter.
[2019-03-25] VITALS: BP 124/68
[2019-03-25] MEDS: METOPROLOL TART 50 MG TAB PO SCH ×2 (00:13→05:07)
[2019-03-25] MEDS: OXAZEPAM 15 MG CAP PO SCH ×4 (02:00→20:23)
[2019-03-25 04:00] VITALS: BP 121/63
[2019-03-25] MEDS: SLF 3 ML SYR IV SCH ×3 (05:07→20:24)
[2019-03-25 06:12] LABS: HEMATOCRIT 39.4 % (42.0-52.0); HEMOGLOBIN 12.8 g/dl (13.5-17.5); MEAN CORPUSCULAR HEMOGLOBIN 29.7 pg (27.0-33.0); MEAN CORPUSCULAR HGB CONC 32.5 g/dl (32.0-36.5); MEAN CORPUSCULAR VOLUME 91.4 fl (80.0-96.0); PLATELET COUNT, AUTOMATED 130 10^3/uL (150-450); RED BLOOD COUNT 4.31 10^6/uL (4.30-6.10); WHITE BLOOD COUNT 4.9 10^3/uL (4.0-10.0)
[2019-03-25 06:35] LABS: BLOOD UREA NITROGEN 17 MG/DL (7-18); CALCIUM LEVEL 8.3 MG/DL (8.8-10.2); CARBON DIOXIDE LEVEL 33 MEQ/L (21-32); CHLORIDE LEVEL 107 MEQ/L (98-107); CREATININE FOR GFR 0.85 MG/DL (0.70-1.30); GLOMERULAR FILTRATION RATE > 60.0 (>42); GLUCOSE, FASTING 85 MG/DL (70-100); POTASSIUM SERUM 3.9 MEQ/L (3.5-5.1); SODIUM LEVEL 141 MEQ/L (136-145)
[2019-03-25] MEDS: CitaloPRAM (CeleXA) 10 MG TABLET PO SCH (09:13)
[2019-03-25] MEDS: APIXABAN 5 MG TAB (ELIQUIS) PO SCH ×2 (09:13→20:23)
[2019-03-25] MEDS: TORSEMIDE 10 MG TABLET PO ONE ×2 (09:13→09:17)
[2019-03-25] MEDS: FOLIC ACID 1 MG TAB PO SCH (09:13)
[2019-03-25] MEDS: MULTIVITAMINS/MINERALS THERAP 1 TAB PO SCH (09:14)
[2019-03-25] MEDS: ARIPiprazole 2 MG TAB PO SCH (09:14)
[2019-03-25] MEDS: CYANOCOBALAMIN 500 MCG TAB PO SCH (09:14)
[2019-03-25] MEDS: DIVALPROEX 500 MG TAB PO SCH ×2 (09:15→20:24)
[2019-03-25] MEDS: DIGOXIN 0.125 MG TAB PO SCH (09:16)
[2019-03-25] MEDS: MEMANTINE 5MG TABLET (NAMENDA) PO SCH (09:16)
[2019-03-25] MEDS: AMIODARONE 200 MG TAB (PACERONE) PO SCH ×4 (09:16→20:23)
[2019-03-25 10:00] VITALS: BP 120/69
--- NOTE | 2019-03-25 12:49 | IPNPDOC ---
Text Note Date of Service The patient was seen on 03/25/19. NOTE S: Patient was examined bedside. He had a brief moment is of breath this a.m. while ambulating the hallway. He denies any chest pain, denies any chest pressure. Denies any cough, denies any breathing discomfort. Overnight patient was comfortable with few episodes of bradycardia during sleep. No overnight fevers. O: General: Pleasant, elderly gentleman, resting comfortably in bed,no acute distress Lungs: Clear to auscultate, no wheezing, no rhonchi ABD: Obese abdomen, bowel sounds present, no tenderness, no organomegaly Heart regular rate and rhythm, no tachycardia, no murmurs, no rubs, no gallops, S1 and S2 present without any abnormalities Ext: Minimal edema on bilateral lower extremity, no signs of trauma. No bruising A/P: 73-year-old male with PMHx, HTN, BPH, EtOH abuse has been sober for 2 years, anxiety/depression, presents for chest pain and SOB, found to be in a-flutter. # Atrial flutter secondary to alcohol use with underlying cardiovascular disease, -Spontaneously converted from atrial flutter to sinus rhythm at 11 AM on 03/24/2019 --Medications optimized per cardiology. Patient will be likely discharged on digoxin 0.125 daily, Eliquis was 5 mg twice a day, amiodarone 200 mg 2 times a day, and Zebeta 5 mg daily ECHO: EF of 60% -- Patient can be safely discharged tomorrow if cleared by cardiology #Suicidal ideation -Psychiatry consultation -One on one sitter -Will need inpatient IMHU after discharge, he is agreeable to this plan #CHF with preserved EF -He was slightly short of breath while ambulating this AM. He was given 10 mg of Demadex. His symptoms resolved #Severe depression with suicidality -Has been evaluated by psychiatry. Patient is amenable to stay at inpatient mental health unit after discharge - Patient does not own a firearm, he does express passive suicidality but states that he is unwilling carry forward with the plan through due to his daughters and his belief in [place] #EtOH abuse - patient has history of alcohol abuse, states he has been clean for 2 years, but started drinking again last week - states his last drink was last week - family states he has been drinking daily up until his admission - [facility] protocol - Serax 30 q6h #Falls -ET and OT evaluation ordered #Heavy Alcohol use -[facility] protocol -Serax #HTN with hypertensive heart disease - continue to follow clinically - not on home meds #Dementia. -Resume home med #Anxiety/depression. -Resume home meds #DVT prophylaxis - eliquis VS,Fishbone, I+O VS, Fishbone, I+O Laboratory Tests 03/25/19 05:47 Vital Signs Date Time Temp Pulse Resp B/P (MAP) Pulse Ox O2 Delivery O2 Flow Rate FiO2 03/25/19 05:07 49 03/25/19 04:00 96.8 18 121/63 (82) 97 Room Air 03/23/19 09:43 2.0 I&O- Last 24 Hours up to 6 AM 03/25/19 05:59 Intake Total 1320 ml Output Total 600 ml Balance 720 ml Attending Note I personally saw and evaluated the patient. I agree with the findings and the plan of care documented above in the resident's note with the following addendums Patient is obese with moderate pulmonary hypertension in Echo. He also has CHF with preserved EF and with mild fluid overload and mild CHF exacerbation managed by diuretics orally by cardio. No signs of alcohol withdrawal. Will start tapering serax. RICO SHULTZ DO Mar 25, 2019 08:10 MOJGAN BUCKLEY MD Mar 26, 2019 11:10
--- NOTE | 2019-03-25 15:30 | IPN ---
CARDIOLOGY PROGRESS NOTE: DATE OF SERVICE: 03/25/2019 SUBJECTIVE: The patient is a 73-year-old male, presented to the hospital on Saturday03/21/2019 complaining of 3 to 4 hours of chest pain. Patient was found to be in atrial flutter upon arriving to the emergency department. Patient's chest pain did resolve over time and the patient says he is feeling much better today. At about 11:00 a.m. yesterday, 03/24/2019, the patient spontaneous converted to normal sinus rhythm. Patient says he is feeling better and he really wants to go home, however, he understands that he needs to continue to be in the hospital for monitoring until at least tomorrow. PHYSICAL EXAMINATION: VITAL SIGNS: Temperature 96.8, pulse 55, respiratory rate 18, blood pressure 121/63, pulse oximetry 97% on room air. GENERAL: Patient is alert and oriented male patient who is laying in bed when I walked into the room. Patient was able to follow commands and answer questions appropriately and did not appear to be in any acute distress. HEENT: Normocephalic, atraumatic. Anicteric sclera. Moist mucous membranes. NECK: Jugular venous distention about 3 to 4 cm above the sternal angle. CARDIOVASCULAR: Irregular rate and rhythm. S1 was difficult to auscultate at the aortic area but there was a normal S1 and S2 throughout the rest of the heart areas. RESPIRATORY: Clear to auscultation bilaterally. No wheezes, rhonchi, rales. ABDOMEN: Soft, nontender with no active bowel sounds. EXTREMITIES: With still trace pitting edema around the ankles up to the level of the mid dacosta bilaterally. No sacral edema present. LABORATORY: CBC shows white blood cells 12.9, hemoglobin 12.8, hematocrit 39.4, platelet count 130. Sodium 141, potassium 3.9, chloride 107, carbon dioxide 33, BUN 17, creatinine 0.85. Glucose 85, calcium 8.3. ASSESSMENT AND PLAN: Patient is a 73-year-old male who presented to the hospital with chest pain and atrial flutter. 1. Chest pain. Patient's chest pain has resolved and he has not had any further episodes. Patient should have a full cardiac workup for coronary artery disease as the patient has risk factors such as male patient, older age and longstanding hypertension. Patient's chest pain did not appear to be ischemic in nature as the patient's troponins were negative the entire time he was having chest pain and after the chest pain. 2. Atrial flutter. Patient's atrial flutter spontaneously converted at about 11:00 a.m. yesterday morning. We will continue with the telemetry. Patient will be continuing amiodarone 200 mg four times a day, digoxin 0.125 mg daily. Patient's metoprolol tartrate was discontinued today as he is meeting hold parameters for medication being held. Patient will be started on bisoprolol 5 mg daily tomorrow morning. Patient can be sent home on amiodarone 200 mg twice a day starting tomorrow. Patient has been started on Eliquis 5 mg twice a day. 3. Heart failure, unspecified. Patient's fluid overload status appears to be better today, however, he has gained weight throughout his hospitalization so we will give him one dose of torsemide 10 mg today. 4. Abnormal EKG. Patient's repeat EKG yesterday showed him to be in normal sinus rhythm and a persistent S wave throughout the precordial leads. 5. Hypertensive heart disease (benign). Patient has longstanding hypertension. Patient has been shown to have concentric left ventricular hypertrophy with a fairly normal wall motion despite the tachyarrhythmia he was in during the echocardiogram. Will continue to monitor the patient and patient will continue with loading dose of amiodarone and will be on telemetry to assess fur further rhythm disturbances. My faculty preceptor for this patient encounter was physically present during the encounter and was fully available. All aspects of the patient interview, examination, medical decision making process, and medical care plan development were reviewed and approved by the faculty preceptor. The faculty preceptor is aware and concurs with the plan as stated in the body of this note and will attest to such by his/her co-signature.
[2019-03-25 16:00] VITALS: BP 137/73
[2019-03-25 20:00] VITALS: BP 128/65
[2019-03-26] VITALS (7 sets, daily range): BP systolic 106–140; BP diastolic 60–78
[2019-03-26] MEDS: OXAZEPAM 15 MG CAP PO SCH ×2 (01:36→08:22)
[2019-03-26] MEDS: SLF 3 ML SYR IV SCH ×3 (04:37→21:28)
[2019-03-26 06:08] LABS: HEMATOCRIT 40.2 % (42.0-52.0); MEAN CORPUSCULAR HEMOGLOBIN 29.4 pg (27.0-33.0); MEAN CORPUSCULAR HGB CONC 32.3 g/dl (32.0-36.5); PLATELET COUNT, AUTOMATED 138 10^3/uL (150-450); RED BLOOD COUNT 4.42 10^6/uL (4.30-6.10); WHITE BLOOD COUNT 4.5 10^3/uL (4.0-10.0)
[2019-03-26 06:37] LABS: BLOOD UREA NITROGEN 15 MG/DL (7-18); CALCIUM LEVEL 7.9 MG/DL (8.8-10.2); CARBON DIOXIDE LEVEL 33 MEQ/L (21-32); CHLORIDE LEVEL 109 MEQ/L (98-107); CREATININE FOR GFR 0.86 MG/DL (0.70-1.30); GLOMERULAR FILTRATION RATE > 60.0 (>42); GLUCOSE, FASTING 79 MG/DL (70-100); POTASSIUM SERUM 3.8 MEQ/L (3.5-5.1); SODIUM LEVEL 143 MEQ/L (136-145)
[2019-03-26 07:56] LABS: PHOSPHORUS LEVEL 3.3 MG/DL (2.5-4.9)
[2019-03-26] MEDS ORDERED: TORSEMIDE 10 MG TABLET PO ONE (08:00)
[2019-03-26] MEDS ORDERED: POTASSIUM CHLORIDE 10 MEQ SR TABLET PO ONE (08:00)
[2019-03-26] MEDS: ARIPiprazole 2 MG TAB PO SCH (08:22)
[2019-03-26] MEDS: AMIODARONE 200 MG TAB (PACERONE) PO SCH ×2 (08:23→13:22)
[2019-03-26] MEDS: CitaloPRAM (CeleXA) 10 MG TABLET PO SCH (08:23)
[2019-03-26] MEDS: DIVALPROEX 500 MG TAB PO SCH ×2 (08:23→21:28)
[2019-03-26] MEDS: APIXABAN 5 MG TAB (ELIQUIS) PO SCH ×2 (08:23→21:28)
[2019-03-26] MEDS: FOLIC ACID 1 MG TAB PO SCH (08:23)
[2019-03-26] MEDS: SPIRONOLACTONE 12.5MG PER 1/2 TABLET PO SCH (08:23)
[2019-03-26] MEDS: CYANOCOBALAMIN 500 MCG TAB PO SCH (08:24)
[2019-03-26] MEDS: MULTIVITAMINS/MINERALS THERAP 1 TAB PO SCH (08:24)
[2019-03-26] MEDS: MEMANTINE 5MG TABLET (NAMENDA) PO SCH (08:24)
[2019-03-26] MEDS ORDERED: bisoproloL fumarate 5 MG TAB PO ONE (09:00)
--- NOTE | 2019-03-26 10:17 | IPNPDOC ---
Text Note Date of Service The patient was seen on 03/26/19. NOTE S:Patient was examined in his bedroom overnight he had episodes of V tach. This morning he was asymptomatic, and sinus rhythm. He had no acute complaints. He denied any suicidal ideations. States that his firm belief and Catholicism will prevent him from committing suicide. O: General:, Sitting comfortably in bed, accompanied by sitter. Lungs: Clear to auscultate, no wheezing, no rhonchi Heart regular rate and rhythm, no tachycardia, no murmurs, no rubs, no gallops, S1, S2 present, Ext: Minimal edema on bilateral lower extremity, no signs of trauma. No bruising A/P: 73-year-old male with PMHx, HTN, BPH, EtOH abuse, anxiety/depression, presents for chest pain, found to be in a-flutter. # Atrial flutter secondary to alcohol use with underlying cardiovascular disease -Cardiology consult -Spontaneously converted from atrial flutter to sinus rhythm at 11 AM on 020 -03/26/19 Had episodes of Vtach overnight -Spironolactone 12.5 daily was added to his medical regimen. -Currently on digoxin 0.125 daily, Eliquis was 5 mg twice a day, amiodarone 200 mg 4 times a day, and Zebeta 5 mg daily, Spironolactone 12.5 #CHF with preseved EF. -Give a one time dose of torsemide 10 mg -ECHO: EF of 60% - Started on spironolactone 12.5 mg #Suicidal ideation -Denies any active suicidal ideations. Patient does not have access to firearms. He has good support structures with his daughters, he is belief in Catholicism also prevents him from committing suicide, according to patient -Will D/C one on one sitter #EtOH abuse - patient has history of alcohol abuse, states he has been clean for 2 years, but started drinking again last week - states his last drink was last week - family states he has been drinking daily up until his admission - [facility] protocol - Serax 30 q6h-- Will decrease to 20 mg Q8hr #Falls -ET and OT evaluation ordered # Recent Heavy Alcohol use after being sober for 2 years. -[facility] protocol -Serax #HTN - continue to follow clinically - not on home meds #dementia. -Resume home med #Anxiety/depression. -Resume home meds #DVT prophylaxis - eliquis VS,Fishbone, I+O VS, Fishbone, I+O Laboratory Tests 03/26/19 05:29 Vital Signs Date Time Temp Pulse Resp B/P (MAP) Pulse Ox O2 Delivery O2 Flow Rate FiO2 03/26/19 04:00 97.9 68 18 123/60 (81) 92 Room Air 03/23/19 09:43 2.0 I&O- Last 24 Hours up to 6 AM 03/26/19 06:00 Intake Total 1100 ml Output Total 2050 ml Balance -950 ml Attending Note I personally saw and evaluated the patient. I agree with the findings and the plan of care documented above in the resident's note. I spoke with him for a long time regarding his depression and suicidal thoughts . He denied any suicidal thoughts or plans. Says he started drinking after 2 years as he was bored with nothing to do. He did admit to feeling sad and down when he came to the hospital but says he is feeling better. He says he does not have anything to do all day and he cant go anywhere as he does not drive due to h/o seizures. Says has good relations with his son and daughter. I suggested about adult day care said he is going to think about it. RICO SHULTZ DO Mar 26, 2019 07:29 MOJGAN BUCKLEY MD Mar 27, 2019 11:11
--- NOTE | 2019-03-26 13:05 | IPN ---
CARDIOLOGY PROGRESS NOTE DATE OF SERVICE: 03/26/2019 SUBJECTIVE: The patient is a 73-year-old male who presented to the hospital on 03/21/2019 complaining of 3 to 4 hours of chest pain. Patient was found to be in atrial flutter upon arriving to the emergency department. The patient's chest pain did resolve over this time and at 11:00 a.m. on 03/24/2019, the patient spontaneous converted to sinus rhythm. Patient was complaining yesterday of some dizziness and lightheadedness, with possible shortness of breath (SOB), however, this has resolved at this time. The patient states that he did not have any episodes of this overnight and did not have any cardiac events on telemetry overnight until about 7 o'clock this morning when the patient started having nonsustained ventricular tachycardia. The patient had about three runs of nonsustained ventricular tachycardia with a maximum of four beats of V-tach. The patient did not feel any symptoms during this, however with the patient being on digoxin and the patient's potassium being slightly low, this was concerning. The patient does not complain of any symptoms at this time, did not experience any chest pain, dizziness, lightheadedness, shortness of breath (SOB) or abdominal pain during these episodes. PHYSICAL EXAMINATION: VITAL SIGNS: Temperature 97.3, pulse 66, respiratory rate 18, blood pressure 132/76, pulse oximetry 95% on room air. INTAKE AND OUTPUT: The patient had a net negative balance of 950 mL yesterday. The patient's weight has dropped from 109.8 kg to 108.1 kg. GENERAL: Patient is alert and oriented male patient who is sitting on the side of the bed finishing breakfast when I walked into the room. Patient did not appear to be in any acute distress. HEENT: Normocephalic, atraumatic. Anicteric sclera. Moist mucous membranes. NECK: Jugular venous distention about 3 to 4 cm above the sternal angle. CARDIOVASCULAR: Irregular rate and rhythm. The patient's S1 was difficult to auscultate at the aortic area, but there was a normal S1 and S2 throughout the rest of the heart areas. RESPIRATORY: Clear to auscultation bilaterally. No wheezes, rhonchi, rales. ABDOMEN: Soft, nontender with normal active bowel sounds. EXTREMITIES: There was trace pitting edema around the level ankles to the level of the mid dacosta. The patient had no sacral dependent edema. LABORATORY: White blood cell count 4.5, hemoglobin 13.0, hematocrit 40.2, platelet count 138. Sodium 143, potassium 3.8, chloride 109, carbon dioxide 33, BUN 15, creatinine 0.86, glucose 79, calcium 7.9, phosphorous 3.3. ASSESSMENT AND PLAN: Patient is a 73-year-old male who presented to the hospital with chest pain and was found to be in atrial flutter. 1. Chest pain. The patient's chest pain has resolved and he has not had any further episodes. The patient should have a full cardiac workup for coronary artery disease after discharge as the patient has risk factors such as male patient as the patient has risk factors such as male patient, older age and longstanding hypertension. The patient's chest pain was not ischemic in nature as the patient's troponins were negative the entire time he had chest pain and after his chest pain had resolved. 2. Atrial flutter. The patient's atrial flutter spontaneously converted at about 11:00 a.m. on 03/24/2019. He has been switched to amiodarone 200 mg once a day, and his digoxin has been discontinued secondary to nonsustained ventricular tachycardia. The patient's metoprolol tartrate was also discontinued two days ago and he was given a dose of bisoprolol 5 mg today which caused his heart rate to be in the upper 40s and low 50s throughout the day. Patient will not be given beta julian therapy upon discharge. The patient is also on Eliquis 5 mg twice a day. 3. Nonsustained ventricular tachycardia. The patient has had three to four runs of nonsustained ventricular tachycardia with the maximum of 4 beats. At this time the patient's digoxin has been discontinued and the patient will be given 40 mEq of potassium chloride in order to raise his potassium to a higher level as this may be the cause of this. We will continue to monitor. The patient was going to be discharged home today, however because of the nonsustained ventricular tachycardia we will have to monitor the patient for an additional 24 hours. 4. Heart failure, unspecified. The patient still appears slightly fluid overloaded although he did exhibit good diuresis yesterday. He will be given an additional dose of torsemide 10 mg and spironolactone 12.5 mg today. 5. Abnormal EKG. The patient's repeat EKG two days ago showed normal sinus rhythm with persistent S wave throughout the precordial leads. 6. Hypertensive heart disease (benign). The patient has longstanding hypertension. Patient has been shown to have concentric left ventricular hypertrophy with fairly normal wall motion despite tachyarrhythmia he had during his echocardiogram. We will continue to monitor the patient and continue with loading dose of amiodarone. The patient will be on telemetry to assess for further rhythm disturbances such as the ventricular tachycardia he exhibited today. Plan is to discharge the patient on 12.5 mg of spironolactone daily, Eliquis 5 mg BID, and amiodarone 200 mg daily. Patient should follow up in 2 weeks in the office. As long as the patient's heart rate remains in the 50s or higher, he can be discharged tomorrow from our standpoint. MTDD
[2019-03-26] MEDS: OXAZEPAM 10 MG CAP PO SCH ×2 (13:24→21:28)
[2019-03-27] VITALS: BP 126/71
--- NOTE | 2019-03-27 00:30 | ECGEPIP ---
[facility] Test Date: 2019-03-24 Pat Name: JIGNA KIRKLAND Department: Room: [place] [address] Gender: Male Public Service Director: CINTHIA : 1945 Requested By: LETITIA CAROLINA Order Number: [id number] Reading MD: Jan Kwon Measurements Intervals [place] Rate: 77 P: 40 SC: 171 QRS: 38 QRSD: 97 T: -1 QT: 393 QTc: 446 Interpretive Statements SINUS RHYTHM PROBABLE INFERIOR MYOCARDIAL INFARCTION, PROBABLY OLD WITH POSTERIOR EXTENSION MOST RECENT TRACING ON 03/22/2019 AT 10:17 A.M.. ATRIAL FLUTTER WAS NOTED Electronically Signed on 03-27-2019 0:29:47 EST by Jan Kwon
[2019-03-27 04:00] VITALS: BP 122/60
[2019-03-27 05:45] LABS: HEMATOCRIT 41.1 % (42.0-52.0); HEMOGLOBIN 13.3 g/dl (13.5-17.5); MEAN CORPUSCULAR HEMOGLOBIN 29.6 pg (27.0-33.0); MEAN CORPUSCULAR HGB CONC 32.4 g/dl (32.0-36.5); MEAN CORPUSCULAR VOLUME 91.5 fl (80.0-96.0); PLATELET COUNT, AUTOMATED 136 10^3/uL (150-450); RED BLOOD COUNT 4.49 10^6/uL (4.30-6.10); WHITE BLOOD COUNT 4.6 10^3/uL (4.0-10.0)
[2019-03-27] MEDS: OXAZEPAM 10 MG CAP PO SCH (05:50)
[2019-03-27] MEDS: SLF 3 ML SYR IV SCH ×2 (05:50→14:00)
[2019-03-27 06:05] LABS: BLOOD UREA NITROGEN 15 MG/DL (7-18); CALCIUM LEVEL 8.5 MG/DL (8.8-10.2); CARBON DIOXIDE LEVEL 33 MEQ/L (21-32); CHLORIDE LEVEL 106 MEQ/L (98-107); CREATININE FOR GFR 0.92 MG/DL (0.70-1.30); GLOMERULAR FILTRATION RATE > 60.0 (>42); GLUCOSE, FASTING 85 MG/DL (70-100); POTASSIUM SERUM 3.9 MEQ/L (3.5-5.1); SODIUM LEVEL 139 MEQ/L (136-145)
[2019-03-27 08:00] VITALS: BP 135/75
[2019-03-27] MEDS ORDERED: AMIODARONE 200 MG TAB (PACERONE) PO SCH (09:00)
[2019-03-27] MEDS: SPIRONOLACTONE 12.5MG PER 1/2 TABLET PO SCH (09:14)
[2019-03-27] MEDS: APIXABAN 5 MG TAB (ELIQUIS) PO SCH (09:14)
[2019-03-27] MEDS: CitaloPRAM (CeleXA) 10 MG TABLET PO SCH (09:14)
[2019-03-27] MEDS: MEMANTINE 5MG TABLET (NAMENDA) PO SCH (09:14)
[2019-03-27] MEDS: DIVALPROEX 500 MG TAB PO SCH (09:14)
[2019-03-27] MEDS: CYANOCOBALAMIN 500 MCG TAB PO SCH (09:14)
[2019-03-27] MEDS: ARIPiprazole 2 MG TAB PO SCH (09:14)
[2019-03-27] MEDS: MULTIVITAMINS/MINERALS THERAP 1 TAB PO SCH (09:14)
[2019-03-27] MEDS: FOLIC ACID 1 MG TAB PO SCH (09:14)
--- NOTE | 2019-03-27 10:10 | MHIPNPDOC ---
[facility] Progress Note Progress Note Inpatient Progress Note Robert Brooks MRN: N/A Date of : N/A Date of Service: 03/27/2019 History of Present Illness The patient a 73-year-old man with no significant past psychiatric history presents to [facility] for significant alcohol withdrawal concerns after becoming intoxicated on alcohol, relapsing after 2 years of sobreity. The patient is met with as he reported suicidal thoughts with no plan or intention but reported significant depression, lost of intertest, low mood and concentration and focus problems. Additionally, he has been worked up for dementia, however, reports that his memory problems began after his depression started with short term memory.He reported that his mood subsequently became worse after the loss of his to cancer. The patient at times does demonstrate failure to persist related cognitive problems, frequently deferring to his daughter. Interval History The patient is met with today as requested by the hospice group for reevaluation as we have taken him off the one-to-one sitter. They report that the patient has been doing better as his alcohol withdrawal and *10 problems have been treated. I met with the patient where he stated that he was much better and was feeling improved. He had been denying suicidal ideation for last several days after I had seen him. The patient reported that he was amenable to going to outpatient care and appeared much more euthymic. He reported that he was feeling better and the cognition was negative as before. Review Of Systems Reports that his depressed mood, loss of interest has improved. He is mildly frustrated that he might stay longer medically. Psychotherapy None on this visit. Vital Signs Reviewed. Mental Status Examination General: Fair hygiene. Speech: More tone Thought processes: Linear and logical MSK: Smooth and coordinated gait, no signs of tremors or involuntary orofacial movements Thought content: No hopelessness Abstract reasoning, and computation: Intact Description of associations: Intact Description of abnormal or psychotic thoughts: Denies any suicidal or homicidal thoughts. Denies any auditory or visual hallucinations. Judgment: fair Insight: Improved. Orientation: Alert and orientated 3 Cognition: Grossly normal Recent and remote memory: Intact Attention span and concentration: Fair Fund of knowledge: Appears okay Mood: "okay" Affect: Euthymic with a full range Diagnoses Unspecified depressive disorder Alcohol use disorder, severe Unspecified neurocognitive disorder Assessment and Plan The patient is 71-year-old man with a history of alcohol problems and depression presents for treatment. He has an assessment done due to his reported some passive suicidal ideation made. Initially he had been seen for potential admission for psych, however, on reevaluation the patient appears to have improved well with no significant changes other than discontinuing his Ativan. The patient initially I had thought was major depression but due to the improvement, it appears that his diagnosis is likely something different or a mixture thereof. Initially I thought his neurocognitive difficulties were due to depression, however, his mood improving appears to suggest that maybe either a mixture or unrelated. At this time, the patient does not met kt peoples in my opinion as he had no suicidal ideation for the last several days, has no realistic means to act on them, has returned to a reported normal baseline mental status, and is friendly and amenable with my recommendations. He declines voluntary at this time after being offered and thus cannot be held against his will. Medically he will be determined at the determination of the hospice group, however, psychiatry for now will sign off. Recommendations for outpatient addiction and mental health. Disposition Outpatient mental health/ addictions Time Spent 20 minutes. Saturday Vital Signs Vital Signs Date Time Temp Pulse Resp B/P (MAP) Pulse Ox O2 Delivery O2 Flow Rate FiO2 03/27/19 08:00 97.4 54 17 135/75 (95) 95 Room Air 03/23/19 09:43 2.0 Laboratory Data 24H Labs Laboratory Tests 2 03/27/19 05:19: Nucleated Red Blood Cells % (auto) 0.0, Anion Gap 0L, Glomerular Filtration Rate > 60.0, Calcium Level 8.5L CBC/BMP Laboratory Tests 03/27/19 05:19 Current Medications Current Medications Medications (Trade) Dose Ordered Sig/Leila Route PRN Reason Start Time Stop Time Status Last Admin Dose Admin Alprazolam (Xanax) 0.25 mg TID PRN PO ANXIETY 03/21/19 10:30 03/22/19 09:58 DC Amiodarone HCl (Pacerone, Cordarone) 200 mg DAILY PO 03/27/19 09:00 03/27/19 09:14 Amiodarone HCl (Pacerone, Cordarone) 200 mg QID PO 03/23/19 09:00 03/26/19 16:50 DC 03/26/19 13:22 Amiodarone HCl 150 mg/IV Miscellaneous Supplies 100 ml @ 600 mls/hr STAT STAT IV 03/22/19 09:58 03/22/19 10:07 DC 03/22/19 10:14 Apixaban (Eliquis) 5 mg BID PO 03/23/19 09:00 03/27/19 09:14 Aripiprazole (AbiLIFY) 2 mg DAILY PO 03/21/19 09:00 03/27/19 09:14 Citalopram Hydrobromide (CeleXA) 10 mg DAILY PO 03/21/19 09:00 03/27/19 09:14 Cyanocobalamin (Vitamin B12) 1,000 mcg DAILY PO 03/21/19 09:00 03/27/19 09:14 Digoxin (Lanoxin) 0.125 mg DAILY IV 03/22/19 09:00 03/22/19 07:19 DC Digoxin (Lanoxin) 0.125 mg DAILY PO 03/23/19 09:00 03/26/19 07:20 DC 03/25/19 09:16 Digoxin (Lanoxin) 0.125 mg STAT STAT IV 03/21/19 15:31 03/21/19 15:32 DC 03/21/19 15:38 Digoxin (Lanoxin) 0.25 mg DAILY PO 03/22/19 09:00 03/23/19 08:13 DC 03/22/19 08:03 Divalproex Sodium (Depakote) 500 mg BID PO 03/21/19 09:00 03/27/19 09:14 Folic Acid (Folic Acid) 1 mg DAILY PO 03/21/19 09:00 03/27/19 09:14 Heparin Sodium (Porcine) (Heparin) 5,000 units Q12H SQ 03/21/19 09:00 03/23/19 08:14 DC 03/22/19 20:07 Lorazepam (Ativan) 2 mg ASDIRECTED PRN PO SEE PROTOCOL 03/21/19 10:00 03/25/19 10:15 DC Meclizine HCl (Antivert) 25 mg Q8H PRN PO NAUSEA 03/21/19 10:30 Memantine (Namenda) 5 mg DAILY PO 03/21/19 09:00 03/27/19 09:14 Metoprolol Tartrate (Lopressor) 5 mg Q5M IV 03/21/19 08:30 03/21/19 08:41 DC 03/21/19 09:34 Metoprolol Tartrate (Lopressor) 50 mg Q6H PO 03/21/19 18:00 03/25/19 08:57 DC 03/25/19 00:13 Multivitamins (Theragram-M) 1 tab DAILY PO 03/21/19 09:00 03/27/19 09:14 Oxazepam (Serax) 20 mg Q8H PO 03/26/19 14:00 03/27/19 05:50 Oxazepam (Serax) 30 mg Q6H PO 03/21/19 14:00 03/26/19 10:18 DC 03/26/19 08:22 Sodium Chloride (Saline Lock Flush) 2 ml ASDIRECTED PRN IV SEE LABEL COMMENTS 03/21/19 15:00 Sodium Chloride (Saline Lock Flush) 2 ml SLF IV 03/21/19 22:00 03/27/19 05:50 Spironolactone (Aldactone) 12.5 mg DAILY PO 03/26/19 09:00 03/27/19 09:14 Thiamine HCl (Thiamine HCl) 100 mg BID PO 03/21/19 09:00 03/24/19 08:59 DC 03/23/19 20:33 Allergies Coded Allergies: codeine (Verified Adverse Reaction, Intermediate, hallucinations, 03/21/19) ANNE MCCLURE DO Mar 27, 2019 10:10
[2019-03-27 12:00] VITALS: BP 158/90
[2019-03-27] MEDS ORDERED: ALDA25TA2 PO (12:12)
[2019-03-27] MEDS ORDERED: ELIQ5TAB PO (12:12)
[2019-03-27] MEDS ORDERED: AMIO200T PO (12:12)
--- NOTE | 2019-03-27 14:28 | DS.PDOC ---
Discharge Summary General Date of Admission Mar 21, 2019 at 10:16 Date of Discharge 03/27/2019 Attending Physician: MOJGAN BUCKLEY MD Specialist/Consultants Involve: ANNE MCCLURE DO Specialist/Consultants Involve Aj Valencia Md Discharge Summary PROCEDURES PERFORMED DURING STAY: Echocardiogram ADMITTING DIAGNOSES: 1. Chest Pain 2. A. Flutter 3. Alcohol abuse DISCHARGE DIAGNOSES: 1. Paroxysmal A. Flutter 2. Alcohol Abuse 3. Hypertension with hypertensive heart disease 4. Anxiety 5. Depression 6. Alcohol Withdrawal 7. BPH 8. Dementia 9. CHF with preserved EF with exacerbation 10. Moderate pulmonary hypertension 11. Seizure disorder COMPLICATIONS/CHIEF COMPLAINT: Atrial Flutter. HISTORY OF PRESENT ILLNESS: The patient is a 73-year-old male with a past medical history of hypertension, benign prostatic hypertrophy (BPH), anxiety, depression, recent Heavy alcohol use. Who presented [facility] for chest pain. On presentation he stated that he went to sleep around 8 AM in his normal state of health, around 12 AM midnight he awoke to substernal chest pain that was nonradiating, on his left side, he was not diaphoretic, he did not remember any episodes of sweating, the chest pain was constant and was accompanied by short ness of breath, dizziness. He attempted to sleep it off, but had no avail. Around 6 AM this morning patient called EMS. By the time EMS arrived, his chest pain had stopped. However, he was still experience shortness of breath and dizziness. He denied any new changes in medication, denies any recent travel, denies any weight loss, denied any other chest pain denied abdominal pain, denied significant dysphagia, denied any back or shoulder pain. Of note patient does have a history of heavy alcohol use in the past he had reported 10 [place] a day. He has been sober for last 2 years but recently picked up drinking. He reports that his last drink was about a week ago. However, patient's daughter called independently to the ED and reported that patient's last drink was approximately 2 days ago. Patient confirms that since he started drinking. He has been drinking 9-10 Manhattan stay. (A manhattan is composed of whisky, sweet vermouth, and good on top) On initial presentation, EKG showed atrial flutter with a rate of 156, RVR, and an old inferior TN that was unchanged from previous EKG. He had a mild leukocytosis of 10.4, elevated BNP 2706, including alcohol level of 0.031. Hospitalist team was called for admission with cardiology consultation. HOSPITAL COURSE: Patient was admitted to the progressive care unit with cardiology consultation. Over the course of his hospitalization, his medications was adjusted by cardiology, patient was rate controlled, and in sinus rhythm. Which occurred on 03/24/2019 spontaneously. Per cardiology. Patient will be discharged on amiodarone 200 mg daily, digoxin 0.125 daily, spironolactone 12.5 daily an Eliquis was 5 mg twice a day. Patient was also arranged with cardiology follow- up in 2 weeks of discharge. Patient was aware of this. During patient's stay. Patient was followed by psychiatry due to suicidal ideation. On day of discharge patient was evaluated and then cleared by psychiatry as safe to be discharged home. He will follow-up with his outpatient psychiatrist, PCP and opto mechanical engineer. All of patient's questions were appropriately answered prior to discharge. DISCHARGE MEDICATIONS: Please see below. ALLERGIES: Please see below. PHYSICAL EXAMINATION ON DISCHARGE: VITAL SIGNS: Please see below. GENERAL APPEARANCE: Alert no acute distress. LUNGS: Clear to auscultation bilaterally. HEART: Normal S1, S2. No murmurs, no rubs, no gallops ABDOMEN: Soft. No masses. Bowel sounds are present. TRUNK/SPINE:Straight. EXTREMITIES: Moves all extremities equally. No gross deformities. PULSES: 2+ upper and lower extremity . LABORATORY DATA: Please see below. IMAGING: Chest XRAY: IMPRESSION: 1. No acute cardiopulmonary change. Limited AP lordotic portable projection. CT Chest: Impression: 1. No CT evidence for pulmonary embolism. No cardiomegaly, edema, effusion or infiltrate. 2. Some degree of pulmonary artery hypertension with prominent central pulmonary arteries. 3. Some calcifications aorta and coronary arteries, but no aortic aneurysm or dissection. 4. No mediastinal, hilar, axillary, or supraclavicular adenopathy. 5. Bones without acute finding. No upper abdominal significant findings. PROGNOSIS: Stable ACTIVITY: As tolerated DIET: As tolerated DISCHARGE PLAN: To home DISPOSITION: . DISCHARGE INSTRUCTIONS: 1. Follow-up with opto mechanical engineer, take medications as prescribed, alcohol cessation. ITEMS TO FOLLOWUP ON ON OUTPATIENT: 1.A. Flutter 2. Alcohol Abuse 3. Hypertension 4. Anxiety 5. Depression 6. Alcohol Withdrawal 7. BPH 8. Dementia DISCHARGE CONDITION: Stable TIME SPENT ON DISCHARGE: 35 minutes. Vital Signs/I&Os Vital Signs Date Time Temp Pulse Resp B/P (MAP) Pulse Ox O2 Delivery O2 Flow Rate FiO2 03/27/19 12:00 97.6 52 17 158/90 (112) 95 Room Air 03/23/19 09:43 2.0 I&O- Last 24 Hours up to 6 AM0 03/27/19 06:00 Intake Total 2320 ml Output Total 2400 ml Balance -80 ml Laboratory Data Labs 24H Laboratory Tests 2 03/27/19 05:19: Nucleated Red Blood Cells % (auto) 0.0, Anion Gap 0L, Glomerular Filtration Rate > 60.0, Calcium Level 8.5L CBC/BMP Laboratory Tests 03/27/19 05:19 Microbiology Microbiology 03/21/19 Blood Culture - Final, Complete NO GROWTH AFTER 5 DAYS 03/21/19 Blood Culture - Final, Complete NO GROWTH AFTER 5 DAYS Discharge Medications Scheduled Amiodarone HCl (Amiodarone HCl) 200 Mg Tablet, 200 MG PO DAILY Apixaban (Eliquis) 5 Mg Tablet, 5 MG PO BID Aripiprazole (Aripiprazole) 2 Mg Tab, 2 MG PO DAILY, (Reported) Citalopram Hydrobromide (Celexa) 10 Mg Tablet, 10 MG PO DAILY, (Reported) Cyanocobalamin (Vitamin B-12) (Vitamin B-12) 1,000 Mcg Tab, 1,000 MCG PO DAILY, (Reported) Divalproex Sodium (Divalproex Sodium) 500 Mg Tab, 500 MG PO BID, (Reported) Memantine HCl (Memantine HCl) 5 Mg Tablet, 5 MG PO DAILY, (Reported) Spironolactone (Aldactone) 25 Mg Tablet, 12.5 MG PO DAILY Please 12.5 mg of spironolactone daily. (If given 25 mg of spironolactone tablets by pharmacy please take half a tablet) Scheduled PRN Alprazolam (Alprazolam) 0.25 Mg Tab, 0.25 MG PO TID PRN for ANXIETY, (Reported) Meclizine HCl (Meclizine HCl) 25 Mg Tab, 25 MG PO Q8H PRN for NAUSEA, (Reported) Allergies Coded Allergies: codeine (Verified Adverse Reaction, Intermediate, hallucinations, 03/21/19) Attending Note I personally saw and evaluated the patient. I agree with the findings and the plan of care documented above in the resident's note. I personally spent 35 mins in counselling and coordinating the patient's discharge. RICO SHULZT DO Mar 27, 2019 14:28 MOJGAN BUCKLEY MD Mar 28, 2019 06:51
[2019-03-27] MEDS ORDERED: OXAZEPAM 10 MG CAP PO SCH (21:00)
== END 2019-03-27 19:54 | disposition home or self-care (01) | DRG 309 ==
LOC: M ED 07:58 → EDBD 07:58 → M ED INP 10:16 → ENRESERVDT 11:49 → ENRESERVTM 11:49 → M ICU 12:34 → M PCU 14:30
PROVIDERS: ADMIT Internal Medicine; ATTEND Internal Medicine Nephrology
DX: I48.92 Unspecified atrial flutter (principal); I50.32 Chronic diastolic (congestive) heart failure; R45.851 Suicidal ideations; F10.10 Alcohol abuse, uncomplicated; I11.0 Hypertensive heart disease with heart failure; F41.9 Anxiety disorder, unspecified; F32.9 Major depressive disorder, single episode, unspecified; N40.0 Benign prostatic hyperplasia without lower urinary tract symptoms; F03.90 Unspecified dementia, unspecified severity, without behavioral disturbance, psychotic disturbance, mood disturbance, and anxiety; I27.20 Pulmonary hypertension, unspecified; G40.909 Epilepsy, unspecified, not intractable, without status epilepticus; D72.829 Elevated white blood cell count, unspecified; Z88.5 Allergy status to narcotic agent; R29.6 Repeated falls

== ENCOUNTER → 2019-04-01 | Outpatient (CLI) | payer MEDICARE, OTHER ==
[~2019-04-01] MED LIST changes: +ALDA25TA2 PO; +AMIO200T PO; +ELIQ5TAB PO
== END ==
LOC: M OUTALCOH 12:47
PROVIDERS: ATTEND Psychiatry & Neurology Addiction Medicine
DX: F10.20 Alcohol dependence, uncomplicated (principal)

== ENCOUNTER 2019-04-08 13:13 | Outpatient (RCR) | payer MEDICARE, OTHER | END 2019-04-25 | LOC: M OUTALCOH 13:13 | PROVIDERS: ATTEND Psychiatry & Neurology Addiction Medicine | DX: F10.20 Alcohol dependence, uncomplicated (principal) ==

== ENCOUNTER → 2020-02-25 | Outpatient (CLI) | payer MEDICARE, OTHER ==
[~2020-02-25] MED LIST changes: -AMIO200T PO; +AMIO200T3 PO
--- NOTE | 2020-02-25 15:26 | REP ---
INDICATION: UNSPECIFIED, ARTRIAL FLUTTER COMPARISON: 03/21/2019 TECHNIQUE: PA and lateral. FINDINGS: The mediastinum and cardiac silhouette are normal. The lung suresh are clear and without acute consolidation, effusion, or pneumothorax. The skeletal structures are intact and normal. IMPRESSION: No acute cardiopulmonary process. <Electronically signed by Gordo Mai > 02/25/20 [id number]
== END ==
LOC: M WUC 15:06
PROVIDERS: ATTEND Physician Assistant
DX: I48.92 Unspecified atrial flutter (principal)

== ENCOUNTER → 2021-08-31 | Outpatient (CLI) | payer MEDICARE, BC, OTHER ==
[~2021-08-31] MED LIST changes: -AMIO200T3 PO; +AMIO200T49 PO; +DONE-1 PO; -DONETAB6 PO; -TRAN1TAB48; -TRAN1TAB48 PO; +TRAN1TAB55; +TRAN1TAB55 PO
== END ==
LOC: M WUC 10:03
PROVIDERS: ATTEND Physician Assistant
DX: I48.92 Unspecified atrial flutter (principal); J98.11 Atelectasis

== ENCOUNTER → 2022-08-24 | Outpatient (CLI) | payer MEDICARE, BC, OTHER | LOC: M SOG 10:06 → M WUC 10:06 | PROVIDERS: ATTEND Physician Assistant | DX: Z53.20 Procedure and treatment not carried out because of patient's decision for unspecified reasons (principal) ==

== ENCOUNTER → 2022-08-24 | Outpatient (CLI) | payer MEDICARE, BC, OTHER | LOC: M WUC 10:12 | PROVIDERS: ATTEND Physician Assistant | DX: I48.92 Unspecified atrial flutter (principal) ==

== ENCOUNTER → 2022-09-10 | Outpatient (CLI) | payer MEDICARE, BC, OTHER | LOC: M RAD 10:09 | PROVIDERS: ATTEND Physician Assistant | DX: K40.90 Unilateral inguinal hernia, without obstruction or gangrene, not specified as recurrent (principal) ==

== ENCOUNTER → 2022-11-08 | Outpatient (CLI) | payer MEDICARE, BC, OTHER ==
[~2022-11-08] MED LIST changes: +MECL-209 PO; -MECL1TAB31 PO
== END ==
LOC: M RAD 08:53
PROVIDERS: ATTEND Physician Assistant
DX: R14.0 Abdominal distension (gaseous) (principal); R10.819 Abdominal tenderness, unspecified site

== ENCOUNTER → 2023-04-01 | Outpatient (CLI) | payer MEDICARE, BC, OTHER | LOC: M WUC 10:04 | PROVIDERS: ATTEND Physician Assistant | DX: I50.32 Chronic diastolic (congestive) heart failure (principal) ==

== ENCOUNTER → 2023-05-04 | Outpatient (REF) | payer MEDICARE, BC, OTHER | LOC: M LAB REF 17:49 | PROVIDERS: ATTEND Physician Assistant | DX: R30.0 Dysuria (principal) ==

== ENCOUNTER → 2023-06-09 | Outpatient (REF) | payer MEDICARE, BC | LOC: M LAB 21:21 | PROVIDERS: ATTEND Physician Assistant | DX: R30.0 Dysuria (principal) ==

== ENCOUNTER → 2023-07-09 | Outpatient (CLI) | payer MEDICARE, BC | LOC: M WUC 09:19 | PROVIDERS: ATTEND Physician Assistant | DX: I50.32 Chronic diastolic (congestive) heart failure (principal) ==

== ENCOUNTER → 2023-08-04 | Outpatient (REF) | payer MEDICARE, BC | LOC: M LAB REF 18:36 | PROVIDERS: ATTEND Physician Assistant | DX: R30.0 Dysuria (principal) ==

== ENCOUNTER → 2023-08-27 | Outpatient (REF) | payer MEDICARE, BC ==
[2023-08-28 11:59] LABS: APPEARANCE, URINE HAZY (CLEAR); BACTERIA, URINE AUTO NEGATIVE (NEGATIVE); BILIRUBIN, URINE AUTO NEGATIVE (NEGATIVE); BLOOD, URINE BLOOD 2+ (NEGATIVE); CALCIUM OXALATE CRYSTALS LARGE; COLOR, URINE YELLOW (YELLOW); GLUCOSE, URINE (UA) AUTO NEGATIVE (NEGATIVE); KETONE, URINE AUTO NEGATIVE (NEGATIVE); LEUKOCYTE ESTERASE, URINE AUTO 3+ (NEGATIVE); MUCUS, URINE SMALL (NEGATIVE); NITRITE, URINE AUTO NEGATIVE (NEGATIVE); PROTEIN, URINE AUTO NEGATIVE (NEGATIVE); RBC, URINE AUTO 0 /HPF (0-3); SQUAMOUS EPITHELIAL CELL UR AU 0 /HPF (0-6); UROBILINOGEN, URINE AUTO 0.2 mg/dL (0.0-2.0); WBC, URINE AUTO 43 /HPF (0-3)
== END ==
LOC: M SMT 09:58
PROVIDERS: ATTEND Urology
DX: N39.0 Urinary tract infection, site not specified (principal)

== ENCOUNTER 2024-06-08 17:04 | Emergency (ER) | payer MEDICARE, BC ==
[~2024-06-08] VITALS: Ht 180.3 cm; Wt 122.0 kg
[~2024-06-08 17:04] MED LIST changes: -OLAN2.5T25 PO; +OLAN2.5T53 PO
[2024-06-08 17:34] VITALS: TEMP 96.8
[2024-06-08 18:15] LABS: BASO % 0.3 % (0.0-1.0); EOS # 0.1 10^3/uL (0.0-0.5); EOS % 1.6 % (0.0-3.0); HEMATOCRIT 40.9 % (42.0-52.0); HEMOGLOBIN 13.4 g/dl (13.5-17.5); LYMPH # 1.1 10^3/uL (1.5-5.0); LYMPH % 16.8 % (24.0-44.0); MEAN CORPUSCULAR HEMOGLOBIN 30.2 pg (27.0-33.0); MEAN CORPUSCULAR HGB CONC 32.8 g/dl (32.0-36.5); MEAN CORPUSCULAR VOLUME 92.1 fl (80.0-96.0); MONO # 0.9 10^3/uL (0.0-0.8); MONO % 13.1 % (2.0-8.0); NEUTROPHILS # 4.6 10^3/uL (1.5-8.5); NEUTROPHILS % 67.9 % (36.0-66.0); PLATELET COUNT, AUTOMATED 155 10^3/uL (150-450); RED BLOOD COUNT 4.44 10^6/uL (4.30-6.10); WHITE BLOOD COUNT 6.8 10^3/uL (4.0-10.0)
[2024-06-08 18:31] LABS: ALBUMIN 2.9 G/DL (3.2-5.2); BILIRUBIN,DIRECT 0.1 MG/DL (<0.4); BILIRUBIN,TOTAL 0.4 MG/DL (0.3-1.2); CALCIUM LEVEL 8.2 MG/DL (8.3-10.6); CK-MB VALUE MASS 1.1 NG/ML (<3.6); CREATININE FOR GFR 1.28 MG/DL (0.70-1.30); GLOMERULAR FILTRATION RATE 57.3 (>42); MB/CK RELATIVE INDEX 0.32 (< OR =4); POTASSIUM SERUM 3.5 MMOL/L (3.5-5.1); TOTAL PROTEIN 6.2 G/DL (5.7-8.2)
[2024-06-08 18:33] LABS: FREE T4 1.59 NG/DL (0.89-1.76); THYROID STIMULATING HORMONE 1.334 uIU/ML (0.55-4.78)
[2024-06-08] MEDS ORDERED: ISOVUE-370 76% 100ML VIAL As Ordered ONE (18:39)
[2024-06-08 19:44] LABS: CK-MB VALUE MASS < 1.0 NG/ML (<3.6)
[2024-06-08 19:46] LABS: CPK CREATINE PHOSPHOKINASE 289 U/L (46-171); MB/CK RELATIVE INDEX 0.34 (< OR =4)
[2024-06-08 20:40] LABS: KETONE, URINE AUTO RFX TRACE mg/dL (NEGATIVE); LEUKOCYTE ESTERASE UR AUTO RFX 3+ (NEGATIVE); NITRITE, URINE AUTO RFX NEGATIVE (NEGATIVE); RBC, URINE AUTO RFX 9 /HPF (0-3); SQUAM EPITHELIAL CELL UR AURFX 0 /HPF (0-6)
[2024-06-08 20:41] LABS: WBC, URINE AUTO RFX TNTC /HPF (0-3)
[2024-06-08 20:49] VITALS: O2SAT 92
[2024-06-08] MEDS ORDERED: CEFD300C PO (21:44)
[2024-06-08 21:45] VITALS: BP 153/63
[2024-06-08] MEDS ORDERED: CEFDINIR 300 MG CAP (OMNICEF) PO ONE (21:45)
== END 2024-06-08 22:31 | disposition home or self-care (01) ==
LOC: M ED 17:04 → EDBD 17:04 → M ED 22:31
DX: N39.0 Urinary tract infection, site not specified (principal); R07.89 Other chest pain; I48.92 Unspecified atrial flutter; I10 Essential (primary) hypertension; F32.A Depression, unspecified; Z88.5 Allergy status to narcotic agent; Z79.01 Long term (current) use of anticoagulants; Z79.899 Other long term (current) drug therapy
CPT/HCPCS: 36415; 71045; 71275; 80048; 80076; 81001; 82550; 82553; 83690; 83880; 84439; 84443; 84484; 85025; 87086; 93005; 93041; 94760; 99285; Q9967

== ENCOUNTER → 2024-09-15 | Outpatient (CLI) | payer MEDICARE, BC ==
[~2024-09-15] MED LIST changes: -AMIO200T49 PO; +AMIO200T54 PO; +CEFD300C PO; +DIVA-41 PO; -DIVA500T94 PO; -FLOM0.4C39 PO; +TAMS-18 PO
== END ==
LOC: M WUC 09:53
PROVIDERS: ATTEND Physician Assistant
DX: I48.92 Unspecified atrial flutter (principal); J98.11 Atelectasis